=== PATIENT | female | born 1940 | race Caucasian/White ===

== ENCOUNTER 2020-08-02 15:12 | Inpatient (IN) | payer MEDICARE, SELFPAY ==
[2020-08-02 15:13] VITALS: BP 228/114; PULSE 95; RESP 18; TEMP 36.1; O2SAT 96; BMI 16.3
--- NOTE | 2020-08-02 15:56 | EDS_ITS ---
HPI History of Present Illness Chief Complaint: Fall Informant: patient and family Narrative Narrative: presents with left hip pain from fall. Patient states that she was outside of her apartment and went to [id number] female She denies any other injuries then to the hip. fell down onto the hip. She states she landed on a rug. She has not been up on her feet since the fall. She states that for about 5 years now she has not taken any medications. She has not seen a doctor in that same timeframe. She states that she used to be treated for hypertension and hypothyroidism. She notes that she has lost a lot of weight recently. [facility] Medical History (Updated 08/02/20 @ 18:[address] Zack Garcia, DO) Hypertension Home Medications NK 08/02/20 [History Last Taken Unknown] Allergy/AdvReac Type Severity Reaction Status Date / Time No Known Allergies Allergy Verified 08/02/20 15:19 no surgical history (Noncontributory) Social History (Updated 08/02/20 @ 17:24 by Idalia Felipe) household members: none housing: apartment current gender identity: female Smoking Status: Never smoker alcohol intake: never ROS ROS ED Constitutional Constitutional ED: Reports weight loss; Denies chills Eyes Eyes: Denies change in vision or diplopia ENT ENT ED: Denies ear pain, rhinorrhea or sore throat Cardiovascular Cardiovascular: Denies chest pain, orthopnea, palpitations or racing heartbeat Respiratory/Chest Respiratory/Chest: Denies cough, dyspnea or orthopnea Gastrointestinal Gastrointestinal: Denies abdominal pain, diarrhea, nausea or vomiting Genitourinary Genitourinary ED: Denies dysuria, hematuria or urinary frequency Musculoskeletal Musculoskeletal: Reports other Details: Left hip pain ; Denies arthralgias or myalgias Integumentary Denies abscess or rash Neurologic Neurologic: Denies headache(s) or weakness Psychiatric Psychiatric: Denies anxiety, depression, suicidal ideation or suicidal thoughts Endocrine Endocrinology: Denies polydipsia, polyphagia or polyuria Allergic/Immunologic Allergic/Immunologic ED: Denies mouth swelling, tongue swelling or urticaria EXAM Physical Exam Const Vital Signs: 08/02/20 15:13 08/02/20 17:26 Temperature 96.9 F L Temperature Source Temporal Pulse Rate 95 Respiratory Rate 18 Blood Pressure 228/114 H 217/124 H Blood Pressure Mean 152 155 Pulse Ox 96 Oxygen Delivery Method Room Air Positive well developed and cachectic General Appearance ED: well developed and cachectic Nutritional Appearance: cachectic HEENT Reports normocephalic, head/scalp atraumatic and moist mucous membranes Eyes PERRL and EOMs intact bilaterally Neck no lymphadenopathy, supple and no JVD Resp normal respiratory effort and clear to auscultation bilaterally Cardio regular rate, regular rhythm and no murmurs GI normal to inspection, nondistended, normoactive bowel sounds and non-tender Palpation: soft Back/Spine no CVA tenderness and normal ROM Extremity Extremity Narrative: Tender to palpation over the left hip. No rotation or shortening noted. Patient has changes consistent with rheumatoid ism General Extremety ED: Yes tenderness; Negative for edema General Extremity: Negative for edema Neuro oriented x3 and CN's II-XII intact bilaterally Sensorium / Orientation: alert Motor Exam: strength 5/5 throughout Psych mental status grossly normal Mood & Affect: Negative for depressed or tearful Skin no rashes or lesions noted and no wounds MDM MDM MDM Narrative Medical decision making narrative: My impression of the plain films of the left hip and pelvis are displaced fractures of the inferior and superior pubic rami. My impression of the single view portable chest x-ray is chronic changes no acute disease. I discussed with the patient and her POA at the bedside. Patient has lost little weight is very frail. She has not seen a doctor in over 5 years. She lives alone. Trying to get her to stand is nearly impossible at the moment. Basic blood work will be obtained. She will receive pain medication. I also gave hydralazine for her hypertension. TSH is significantly elevated. Free T4 1.19. Plan will be for admission. Lab Data Attestation: I reviewed the patient's lab results. Labs: Laboratory Results - last 24 hr 08/02/20 08/02/20 17:28 17:28 WBC 8.7 RBC 4.72 Hgb 14.0 Hct 42.4 MCV 89.8 MCH 29.7 MCHC 33.0 RDW Std Deviation 46.0 H RDW Coeff of Caleb 13.8 Plt Count 247 MPV 9.8 Immature Gran % (Auto) 0.600 Neut % (Auto) 86.8 H Lymph % (Auto) 6.6 L [place] % (Auto) 5.3 Eos % (Auto) 0.1 Baso % (Auto) 0.6 Absolute Neuts (auto) 7.5 Absolute Lymphs (auto) 0.57 L Nucleated RBC % 0 Sodium 133 L Potassium 3.7 Chloride 100 Carbon Dioxide 28.0 Anion Gap 5 BUN 15 Creatinine 0.69 Estim Creat Clear Calc 28.21 Est GFR (MDRD) Af Amer 104 Est GFR (MDRD) Non-Af 86 BUN/Creatinine Ratio 21.6 H Glucose 108 H Calcium 9.1 Total Bilirubin 1.50 H AST 34 ALT 25 Alkaline Phosphatase 75 Total Protein 7.6 Albumin 4.2 Globulin 3.4 Albumin/Globulin Ratio 1.2 TSH 11.60 H Free T4 1.19 Radiography Diagnostic Testing: Radiology Impression Hip/Pelvis X-Ray 08/02/20 16:30 IMPRESSION: Acute displaced fractures of the left superior and inferior pubic rami Electronically Signed: Rodrick Mohr MD at 17:04 EDT , Service support , EKG Initial EKG: Attestation: I personally reviewed and interpreted this EKG as follows: Comments: Normal sinus rhythm at a rate of 84. No features of ACS or ectopy noted. Discharge Plan Dx/Rx/DC Orders Clinical Impression: Closed fracture of superior pubic ramus, Abnormal weight loss, Fall, Closed fracture of inferior pubic ramus, Hypothyroidism, Hypertensive urgency Disposition Disposition: [facility]
--- NOTE | 2020-08-02 16:30 | RAD_ITS ---
STUDY: X-RAY - PELVIS AND LEFT HIP REASON FOR EXAM: Female, 79 years old. injury and pain TECHNIQUE: 5 views of the pelvis and hip. COMPARISON: None. FINDINGS: Acute oblique mildly displaced fractures are present through the lateral and medial aspects of the left superior pubic ramus and midline aspect of the left inferior pubic ramus. No additional visualized fractures. There is a non-specific bowel gas pattern. Normal visualized soft tissue structures. Normal bilateral iliac wings, sacroiliac joints and visualized sacrum. There is narrowing with sclerosis of the pubic symphysis. Normal bilateral ischial tuberosities. Normal visualized femoral head. Normal acetabulum. Moderate bilateral axial narrowing of the hip joints. No demonstrated femoral fractures. Benign bone island of the right intertrochanteric region. RAD/HIP, UNI W/ Pelvis 2-3 Views IMPRESSION: Acute displaced fractures of the left superior and inferior pubic rami Electronically Signed: Rodrick Mohr MD at 17:04 EDT , Service support ,
--- NOTE | 2020-08-02 17:04 | EKG12_ITS ---
Test Reason : FALL Blood Pressure : / mmHG Vent. Rate : 084 BPM Atrial Rate : 084 BPM P-R Int : 186 ms QRS Dur : 090 ms QT Int : 396 ms P-R-T Axes : 071 -37 -10 degrees QTc Int : 467 ms Normal sinus rhythm Left axis deviation Left ventricular hypertrophy Inferior CT, age undetermined Abnormal ECG Confirmed by RAVINDRA LINARES, JESSE ([id number]), food expeditor JOSE ROWE ([id number]) on 08/06/2020 10:58:27 AM Referred By: BETSY Confirmed By:JESSE WAITE MD
[2020-08-02] MEDS: Ondansetron 4 MG/2 ML Vial IV (17:21)
[2020-08-02] MEDS: Morphine 2 MG/ML Syringe IV (17:21)
[2020-08-02 17:26] VITALS: BP 217/124
--- NOTE | 2020-08-02 17:32 | RAD_ITS ---
STUDY: X-RAY CHEST REASON FOR EXAM: Female, 79 years old. weight loss TECHNIQUE: Single AP portable view of the chest. COMPARISON: None. FINDINGS: The lungs are clear and expanded. There is no demonstrated pleural abnormality. Normal size heart. Normal mediastinum and ayesha. Normal visualized pulmonary arteries. There is atherosclerotic calcification of the aortic arch with tortuosity. There are diffuse degenerative changes of the visualized thoracic spine. There is degenerative osteoarthritis of the bilateral shoulders. There is no demonstrated abnormality of the visualized soft tissue structures of the upper abdomen. RAD/Chest 1 View (Portable) IMPRESSION: No acute process Electronically Signed: Rodrick Mohr MD at 18:23 EDT , Service support ,
[2020-08-02 17:38] LABS: Absolute Lymphocyte Count 0.57 X10^3/uL (0.83-4.51); Absolute Neutrophil Count 7.5 X10^3/uL (2.0-7.7); Basophil# 0.05 X10^3/uL; Basophil% 0.6 % (0-1); Eosinophil# 0.01 X10^3/uL; Eosinophils% 0.1 % (0-5); Hematocrit 42.4 % (37-47); Lymphocyte # 0.57 X10^3/ul (0.83-4.51); Lymphocyte % 6.6 % (19-41); Mean Corpuscular Hgb 29.7 pg (27.0-32.0); Mean Corpuscular Volume 89.8 fL (81-99); Mean Platelet Vol. 9.8 fl (6.2-12.0); Monocyte# 0.46 X10^3/uL; Monocyte% 5.3 % (0-10); NRBC Flagged by Analyzer 0 % (0-5); Neutrophil # 7.53 X10^3/uL (2.7-7.7); Neutrophil % 86.8 % (47-70); POSITIVE DIFFERENTIAL YES; Platelet Count 247 K/mm3 (150-450); RBC Distribution Width CV 13.8 % (11.6-14.6); Red Blood Count 4.72 M/mm3 (4.2-5.4); White Blood Count 8.7 K/mm3 (4.4-11.0)
[2020-08-02 17:40] LABS: Differential Indicated SCAN CRITERIA MET
[2020-08-02 18:08] LABS: ALB/GLOB Ratio 1.2 RATIO (0.9-2.4); AST(SGOT) 34 U/L (15-37); Alanine Aminotransfer ALT/SGPT 25 U/L (13-56); Albumin, Serum 4.2 g/dL (3.2-5.0); Alkaline Phosphatase 75 U/L (45-117); Anion Gap 5 (5-15); BUN 15 mg/dL (7-18); BUN/Creat Ratio 21.6 RATIO (10-20); Calcium,Total 9.1 mg/dL (8.5-10.1); Chloride 100 mmol/L (98-107); Creatinine, Serum 0.69 mg/dL (0.55-1.02); EST Glomerular Filtration Rate 86 mL/min (>60); Est Glom Filt Rate - Afr Amer 104 mL/min (>60); Estimated Creatinine Clearance 28.21 ml/min; Globulin 3.4 g/dL (2.2-4.2); Glucose 108 mg/dL (74-106); Potassium 3.7 mmol/L (3.5-5.1); Protein, Total 7.6 g/dL (6.4-8.2); Sodium Level 133 mmol/L (136-145); T4 Free Direct 1.19 ng/dL (0.76-1.46)
[2020-08-02] MEDS: hydrALAZINE 20 MG/ML Vial 10 MG IV (18:20)
--- NOTE | 2020-08-02 18:38 | PCM.HP.STD ---
[facility] - [facility] General Date of Admission: 08/02/20 Chief Complaint: Fall. [facility] Narrative DANIELE WYATT, is a 79 F with past medical history as mentioned above presented to the emergency room because of fall. Patient was going out of her apartment to slate picker her mail, she was about to turn around and lost her balance and she fell on her hip. She states that she started having pain in the pelvic region on the left side, and she could not ambulate. Pain was moderate, sharp pain and was aggravated by movement. She denied any prodromal symptoms before she fell down. Patient's son mentioned that his mother did not see a doctor for more than 5 years. She had a history of hypertension and hypothyroidism but she quit taking medications for both since his father more than 5 years ago. In the emergency department, her blood pressure was elevated, highest was 228/114, other vital signs were stable. Routine blood work was unremarkable. LFT was unremarkable. TSH was very elevated at 11.60. EKG revealed normal sinus rhythm without evidence of acute ischemic changes. Chest x-ray showed no acute findings. X-ray of the pelvis and left hip showed acute displaced fractures of the left superior and inferior pubic rami. She has been lightheaded for acute traumatic left superior and inferior pubic rami, hypertensive urgency, noncompliance and elevated TSH. [facility] Medical History (Updated 08/02/20 @ 18:[address] Jan Kerr MD) Hypertension Home Medications NK 08/02/20 [History Last Taken Unknown] Allergy/AdvReac Type Severity Reaction Status Date / Time No Known Allergies Allergy Verified 08/02/20 15:19 no significant family history Surgical History (Updated 08/02/20 @ 18:[address] Jan Kerr MD) Total knee replacement status Social History (Updated 08/02/20 @ 17:24 by Idalia Felipe) household members: none housing: apartment current gender identity: female Smoking Status: Never smoker alcohol intake: never ROS Constitutional Constitutional: Reports change in weight; Denies anorexia, chills, fever(s), night sweats or weakness Eyes Eyes: Denies blurry vision, change in vision, discharge from eye(s) or double vision ENT HEENT: Denies abnormal hearing, dysphagia, ear pain, epistaxis, nasal congestion or nasal discharge Cardiovascular Cardiovascular: Denies chest pain, dyspnea on exertion, edema, orthopnea or paroxysmal nocturnal dyspnea Respiratory/Chest Respiratory/Chest: Denies cough, hemoptysis, productive cough, shortness of breath at rest or shortness of breath with exertion Gastrointestinal Gastrointestinal: Denies abdominal pain, constipation, diarrhea, melena, nausea or vomiting Genitourinary Genitourinary: Denies burning urination, dysuria, hematuria or urinary frequency Musculoskeletal Musculoskeletal: Reports other Details: Left side pelvic pain. ; Denies arthralgias, back pain or joint pain Neurologic Neurologic: Denies abnormal gait, confusion, focal weakness, numbness, syncope or tingling Psychiatric Psychiatric: Denies anxiety, depression, homicidal ideation or suicidal ideation Endocrine Endocrinology: Reports other Details: Weight loss. ; Denies change in body appearance or polydipsia Hematologic/Lymphatic Hematologic/Lymphatic: Denies anemia, easy bleeding or easy bruising Allergic/Immunologic Allergic/Immunologic: Denies rhinitis, hives or eczemia Vital Signs Vital Signs Vital Signs: 08/02/20 15:13 08/02/20 17:26 Temperature 96.9 F L Temperature Source Temporal Pulse Rate 95 Respiratory Rate 18 Blood Pressure 228/114 H 217/124 H Blood Pressure Mean 152 155 Pulse Ox 96 Oxygen Delivery Method Room Air Physical Exam Const alert, oriented x3 and no apparent distress General Appearance: cooperative HEENT normocephalic, head/scalp atraumatic and moist oral mucous membranes Mouth: moist mucous membranes abnormal Eyes PERRL, EOMs intact bilaterally and conjunctivae normal Neck no lymphadenopathy, supple, no JVD and no carotid bruits Resp normal respiratory effort and clear to auscultation bilaterally Auscultation: Negative for crackles, rales, rhonchi or wheezes Cardio regular rate, regular rhythm, S1 normal heart sound, S2 normal heart sound, no murmurs and no JVD Peripheral Pulses: pulses 2+ throughout GI normal to inspection, nondistended, normoactive bowel sounds, soft to palpation, non-tender and non-distended; Negative for hepatosplenomegaly Extremity normal to inspection, full ROM and no clubbing, cyanosis or edema Skin no rashes or lesions noted, no wounds and no petechiae Neuro oriented x3 and CN's II-XII intact bilaterally Sensorium / Orientation: alert Speech: speech normal Motor Exam: strength 5/5 throughout Psych mental status grossly normal and affect normal Lab / Micro Data Result Diagrams: 08/02/20 17:28 08/02/20 17:28 Labs: Laboratory Results - last 24 hr 08/02/20 08/02/20 17:28 17:28 WBC 8.7 RBC 4.72 Hgb 14.0 Hct 42.4 MCV 89.8 MCH 29.7 MCHC 33.0 RDW Std Deviation 46.0 H RDW Coeff of Caleb 13.8 Plt Count 247 MPV 9.8 Immature Gran % (Auto) 0.600 Neut % (Auto) 86.8 H Lymph % (Auto) 6.6 L [place] % (Auto) 5.3 Eos % (Auto) 0.1 Baso % (Auto) 0.6 Absolute Neuts (auto) 7.5 Absolute Lymphs (auto) 0.57 L Nucleated RBC % 0 Sodium 133 L Potassium 3.7 Chloride 100 Carbon Dioxide 28.0 Anion Gap 5 BUN 15 Creatinine 0.69 Estim Creat Clear Calc 28.21 Est GFR (MDRD) Af Amer 104 Est GFR (MDRD) Non-Af 86 BUN/Creatinine Ratio 21.6 H Glucose 108 H Calcium 9.1 Total Bilirubin 1.50 H AST 34 ALT 25 Alkaline Phosphatase 75 Total Protein 7.6 Albumin 4.2 Globulin 3.4 Albumin/Globulin Ratio 1.2 TSH 11.60 H Free T4 1.19 Radiology Impression Hip/Pelvis X-Ray 08/02/20 16:30 IMPRESSION: Acute displaced fractures of the left superior and inferior pubic rami Electronically Signed: Rodrick Mohr MD at 17:04 EDT , Service support , Chest X-Ray 08/02/20 17:32 IMPRESSION: No acute process Electronically Signed: Rodrick Mohr MD at 18:23 EDT , Service support , Assessment & Plan Assessment/Plan (1) High thyroid stimulating hormone (TSH) level: Status: Acute Code(s): R79.89 - Other specified abnormal findings of blood chemistry (2) Hypertensive urgency: Status: Acute Code(s): I16.0 - Hypertensive urgency (3) Pubic ramus fracture: Status: Acute Code(s): S32.599A - Other specified fracture of unspecified pubis, initial encounter for closed fracture (4) Fall: Status: Acute Code(s): W19.XXXA - Unspecified fall, initial encounter (5) Hypertension: Status: Chronic Code(s): I10 - Essential (primary) hypertension (6) Hypothyroidism: Status: Chronic Code(s): E03.9 - Hypothyroidism, unspecified Plan: This is an 79 years old female patient presented to the emergency room because of fall and pelvic pain, found to have acute displaced left superior and inferior pubic rami fracture and also found to have mild elevated blood pressure consistent with hypertensive urgency and elevated LFT. #1 fall/acute traumatic displaced fractures of the left superior and inferior pubic rami: X-ray of the pelvis and left hip reviewed. Plan: Admit to PCU, cardiac monitoring, pain control with OxyIR as needed for pain, Tylenol as needed, gentle IV fluid for hydration, Zofran as needed, PT OT evaluation and treatment, patient will probably need placement to [facility] facility.. #2 hypertensive urgency: Patient was highly elevated in the ED, no evidence of endorgan damage. EKG reviewed, no acute findings. She does have a history of hypertension but she did not take her medication for the last 5 years or more. She has been noncompliant. Plan: Start Norvasc 10 mg p.o. daily, lisinopril/HCTZ daily, IV hydralazine as needed. #3 elevated TSH/hypothyroidism: She has history of hypothyroidism, has been not compliant with levothyroxine for last 5 years. TSH is already elevated. Plan: Check total T4, free T3, start levothyroxine 25 mcg daily. #4 DVT prophylaxis: Subcu Lovenox. This note was generated with [employer] dictation software. It may contain incorrect words, spelling, and punctuation that were not noted in checking the note before signing. Visit Charges Inpatient E&M: 38338 Init Hosp L3
[2020-08-02 18:45] VITALS: BP 198/118; PULSE 85; RESP 18; TEMP 36.7; O2SAT 98
[2020-08-02 18:55] VITALS: BP 148/86; PULSE 86; RESP 18; TEMP 36.6; O2SAT 93
[2020-08-02 18:59] VITALS: BMI 14.6
[2020-08-02 19:03] VITALS: PULSE 88
[2020-08-02 19:35] LABS: Acanthocytes 1+; Differential Comment SCANNED; Platelet Estimate ADEQUATE (ADEQ)
[2020-08-02] MEDS: 0.9% Normal Saline 1,000 ML 75 ML IV (21:16)
[2020-08-02 21:24] LABS: Free T3 2.4 pg/mL (2.18-3.98); T4 Total, Thyroxin 11.8 ug/dL (4.8-13.9)
[2020-08-02] MEDS: oxyCODONE 5 MG Tablet PO (21:25)
[2020-08-02 21:41] LABS: Bacteria 0 SEEN /hpf (None Seen); Mucous, Urine 0 SEEN /hpf (<or=2+); White Blood Cells 0 SEEN /hpf (0-5)
[2020-08-02 21:43] LABS: Color, Urine Yellow (Yellow); Glucose, Dipstick Normal (Normal); Ketone-Dipstick 15 mg/dl (Negative); Leukocyte Esterase-Dipstick Negative /ul (Negative); Nitrite-Dipstick Negative (Negative); Occult Blood-Urine 10 /ul (Negative); Protein-Dipstick 30 mg/dl (Negative); Urine Bilirubin Dipstick Negative (Negative); Urine Clarity Sl. Cloudy (Clear); Urine Urobilinogen Normal (Normal)
[2020-08-02 21:52] LABS: Red Blood Cells-Urine 0-5 SEEN /hpf (0-5); Squamous Epithelial Cells - UA 0-5 SEEN /hpf (5-10)
[2020-08-02 22:32] VITALS: RESP 18; O2SAT 95
[2020-08-03] VITALS (11 sets, daily range): BP systolic 109–167; BP diastolic 61–91; PULSE 60–93; RESP 12–18; TEMP 36.6–36.9; O2SAT 93–98
[2020-08-03] MEDS: oxyCODONE 5 MG Tablet PO ×3 (03:39→21:07)
[2020-08-03] MEDS: Levothyroxine 25 MCG TABLET PO (05:45)
[2020-08-03] MEDS: Lisinopril 10 MG Tablet PO (09:30)
[2020-08-03] MEDS: Enoxaparin 30 MG/0.3 ML Syringe SC (09:30)
[2020-08-03] MEDS: amLODIPine 10 MG Tablet PO (09:30)
--- NOTE | 2020-08-03 16:32 | CASEMGMT ---
DAVID AGUIAR NOTE: DAVID AGUIAR informed by therapy earlier today that pt had refused therapy d/t being too tired. This DAVID AGUIAR then informed that when pt's son was in to see her today that pt was then agreeable to therapy, but they had gone home for the day. DAVID AGUIAR to room to talk with pt. Son is no longer in pt's room, but pt states he should be coming back soon. Pt states she has been having difficulty walking since her pelvic fracture and she confirms she lives alone. Discussed discharge plan w/pt. She stated initially, There is no way I am going to a group home. Pt then stated, when she was made aware of [facility] having a Transitional Care Unit, which is a SNF, but located w/in [facility], she stated she would like to go there. Corrie MCWILLIAMS, made aware. Marlon MARIA RN, CM
--- NOTE | 2020-08-03 18:00 | CASEMGMT ---
SOCIAL WORK Met with patient earlier this morning to discuss discharge planning. Patient reported was too tired to work with therapy. Patient reports lives home alone in an apartment. Patient states has not seen a doctor since 5-6 years ago. Patient reports is normally independent at home and does have a walker if needed. Patient states HPOA is step-son, Corby Lozada. Patient was unsure of discharge plan at this time. Later, met with patient. Patient states if needed, would be open to referral to TCU. Informed SW will follow up on Wednesday as patient will require precert. Plan: TCU vs Home, SW to follow up Wednesday Denisse King, EMBOSSING UNIT OPERATOR, SOUND TECHNICIAN
--- NOTE | 2020-08-03 19:26 | PN.HOSP_ITS ---
Subjective Subjective: Doing well today, denies any headaches shortness of breath. She denies any major pelvic pain that she felt tired since she did not sleep very well with the previous night so she did not want to do any physical therapy today. Objective Data Objective Data Vital Signs: Vital Signs Temp Pulse Resp BP Pulse Ox 98.4 F 85 12 109/61 94 08/03/20 15:08 08/03/20 15:33 08/03/20 15:08 08/03/20 15:08 08/03/20 15:08 Oxygen Delivery Method Room Air Weight: 79 lb 14.4 oz Body Mass Index (BMI) 14.6 Intake & Output: Intake and Output for Last 24 Hours 08/02/20 08/03/20 08/04/20 03:59 03:59 03:59 Intake Total 300 / 300 2380 / 2380 Output Total 240 / 240 750 / 750 Balance 60 / 60 1630 / 1630 Lab / Micro Data Result Diagrams: 08/02/20 17:28 08/02/20 17:28 Labs: Laboratory Results - last 24 hr 08/02/20 08/02/20 08/02/20 17:28 17:28 21:30 Differential Comment SCANNED Platelet Estimate ADEQUATE Acanthocytes (Spur) 1+ Thyroxine (T4) 11.8 Free T3 pg/dL 2.4 Urine Color Yellow Urine Clarity Sl. Cloudy Urine pH 8.0 Ur Specific [place] 1.010 Urine Protein 30 H Urine Glucose (UA) Normal Urine Ketones 15 H Urine Occult Blood 10 H Urine Nitrite Negative Urine Bilirubin Negative Urine Urobilinogen Normal Ur Leukocyte Esterase Negative Urine RBC 0-5 SEEN Urine WBC 0 SEEN Ur Squamous Epith Cells 0-5 SEEN Urine Bacteria 0 SEEN Urine Mucus 0 SEEN Physical Exam Const alert, oriented x3 and no apparent distress General Appearance: cooperative HEENT normocephalic and moist oral mucous membranes Eyes PERRL, EOMs intact bilaterally and conjunctivae normal Neck no lymphadenopathy, supple and no JVD Resp normal respiratory effort and clear to auscultation bilaterally Auscultation: Negative for crackles, rales, rhonchi or wheezes Cardio regular rate, regular rhythm, S1 normal heart sound, S2 normal heart sound and no murmurs GI soft to palpation, non-tender and non-distended; Negative for hepatosplenomegaly Extremity no clubbing, cyanosis or edema Skin no rashes or lesions noted Neuro no focal motor deficits and no sensory deficits noted Psych mental status grossly normal and affect normal Assessment & Plan Assessment/Plan (1) High thyroid stimulating hormone (TSH) level: Status: Acute Code(s): R79.89 - Other specified abnormal findings of blood chemistry (2) Hypertensive urgency: Status: Acute Code(s): I16.0 - Hypertensive urgency (3) Pubic ramus fracture: Status: Acute Code(s): S32.599A - Other specified fracture of unspecified pubis, initial encounter for closed fracture Qualifiers: Encounter type: initial encounter Fracture type: closed Laterality: le ft Qualified Code(s): S32.592A - Other specified fracture of left pubis, i nitial encounter for closed fracture (4) Fall: Status: Acute Code(s): W19.XXXA - Unspecified fall, initial encounter Qualifiers: Encounter type: initial encounter Qualified Code(s): W19.XXXA - Unspecified fall, initial encounter Plan: Presented to secondary to mechanical fall for left pubic rami fractures superior and inferior Pain is resolved, will continue with PT/OT and case management for placement She did have hypertensive urgency with SBP in the 200s, will continue with blood pressure medications and monitoring. No signs of endorgan damage TSH is also elevated, she was supposed to be on Synthroid but was not taking it therefore we will reinitiate therapy Visit Charges Inpatient E&M: 64412 Subs Hosp L2
[2020-08-03] MEDS: Acetaminophen 325 MG Tablet 650 MG PO (21:08)
[2020-08-04] VITALS (9 sets, daily range): BP systolic 118–171; BP diastolic 66–91; PULSE 63–95; RESP 12–18; TEMP 36.5–37.2; O2SAT 92–95
[2020-08-04] MEDS: Levothyroxine 25 MCG TABLET PO (05:23)
[2020-08-04] MEDS: 0.9% Saline Lock 10 ML Syringe IV ×2 (05:24→06:48)
[2020-08-04 06:37] LABS: Anion Gap 5 (5-15); BUN 23 mg/dL (7-18); BUN/Creat Ratio 33.8 RATIO (10-20); Calcium,Total 8.4 mg/dL (8.5-10.1); Chloride 101 mmol/L (98-107); Creatinine, Serum 0.68 mg/dL (0.55-1.02); EST Glomerular Filtration Rate 88 mL/min (>60); Est Glom Filt Rate - Afr Amer 107 mL/min (>60); Estimated Creatinine Clearance 25.24 ml/min; Glucose 87 mg/dL (74-106); Sodium Level 132 mmol/L (136-145)
[2020-08-04] MEDS: Lactated Ringers 1,000 ML 75 ML IV (06:48)
[2020-08-04] MEDS: Acetaminophen 325 MG Tablet 650 MG PO (08:44)
[2020-08-04] MEDS: Enoxaparin 30 MG/0.3 ML Syringe SC (11:09)
[2020-08-04] MEDS: Lisinopril 10 MG Tablet PO (11:09)
[2020-08-04] MEDS: amLODIPine 10 MG Tablet PO (11:10)
--- NOTE | 2020-08-04 12:13 | PCM.PN.HOSP ---
Subjective Subjective: Did not get much sleep last night and feels tired this morning. She has agreed to work with therapy today though Objective Data Objective Data Vital Signs: Vital Signs Temp Pulse Resp BP Pulse Ox 97.7 F L 68 12 171/91 H 95 08/04/20 08:51 08/04/20 08:51 08/04/20 08:51 08/04/20 08:51 08/04/20 08:51 Oxygen Delivery Method Room Air Weight: 79 lb 14.4 oz Body Mass Index (BMI) 14.6 Intake & Output: Intake and Output for Last 24 Hours 08/03/20 08/04/20 08/05/20 03:59 03:59 03:59 Intake Total 300 / 300 2560 / 2560 60 / 60 Output Total 240 / 240 875 / 875 100 / 100 Balance 60 / 60 1685 / 1685 -40 / -40 Lab / Micro Data Result Diagrams: 08/02/20 17:28 08/04/20 05:45 Labs: Laboratory Results - last 24 hr 08/04/20 05:45 Sodium 132 L Potassium 4.0 Chloride 101 Carbon Dioxide 26.0 Anion Gap 5 BUN 23 H Creatinine 0.68 Estim Creat Clear Calc 25.24 Est GFR (MDRD) Af Amer 107 Est GFR (MDRD) Non-Af 88 BUN/Creatinine Ratio 33.8 H Glucose 87 Calcium 8.4 L Physical Exam Const alert, oriented x3 and no apparent distress General Appearance: cooperative HEENT normocephalic and moist oral mucous membranes Eyes PERRL, EOMs intact bilaterally and conjunctivae normal Neck no lymphadenopathy, supple and no JVD Resp normal respiratory effort and clear to auscultation bilaterally Auscultation: Negative for crackles, rales, rhonchi or wheezes Cardio regular rate, regular rhythm, S1 normal heart sound, S2 normal heart sound and no murmurs GI soft to palpation, non-tender and non-distended; Negative for hepatosplenomegaly Extremity no clubbing, cyanosis or edema Skin no rashes or lesions noted Neuro no focal motor deficits and no sensory deficits noted Psych mental status grossly normal and affect normal Assessment & Plan Assessment/Plan (1) High thyroid stimulating hormone (TSH) level: Status: Acute Code(s): R79.89 - Other specified abnormal findings of blood chemistry (2) Hypertensive urgency: Status: Acute Code(s): I16.0 - Hypertensive urgency (3) Pubic ramus fracture: Status: Acute Code(s): S32.599A - Other specified fracture of unspecified pubis, initial encounter for closed fracture Qualifiers: Encounter type: initial encounter Fracture type: closed Laterality: left Qualified Code(s): S32.592A - Other specified fracture of left pubis, initial encounter for closed fracture (4) Fall: Status: Acute Code(s): W19.XXXA - Unspecified fall, initial encounter Qualifiers: Encounter type: initial encounter Qualified Code(s): W19.XXXA - Unspecified fall, initial encounter Plan: Presented to secondary to mechanical fall for left pubic rami fractures superior and inferior To facilitate therapy, will continue with oxycodone and Tylenol as needed Pain is improved at rest but still about a 6 out of 10 with therapy, will continue with PT/OT and case management for placement She did have hypertensive urgency with SBP in the 200s, will continue with blood pressure medications and monitoring. No signs of endorgan damage TSH is also elevated, she was supposed to be on Synthroid but was not taking it therefore we will reinitiate therapy Visit Charges Inpatient E&M: 80330 Subs Hosp L2
[2020-08-04] MEDS: oxyCODONE 5 MG Tablet PO (21:15)
[2020-08-05] VITALS (10 sets, daily range): BP systolic 142–208; BP diastolic 79–107; PULSE 69–97; RESP 16–18; TEMP 36.6–36.9; O2SAT 92–96
[2020-08-05] MEDS: Acetaminophen 325 MG Tablet 650 MG PO ×2 (04:03→15:37)
[2020-08-05] MEDS: Levothyroxine 25 MCG TABLET PO (05:59)
--- NOTE | 2020-08-05 09:11 | CASEMGMT ---
Addendum entered by oRsa Carreno 08/05/20 14:02: SW called [facility] [employer], spoke with a apprenticeship training representative. SW informed that the fax number we have used previously is incorrect, and the information should be faxed to [phone]. SW refaxed the information to this fax number. SW did also check, the prior fax to did also go through. SW will continue to follow. LAMAR Rice Original Note: SW received message that if pt needs rehab, she would like TCU. SW called [facility] in TCU and they can accept the pt. SW met w/pt in room in regard to discharge plan. Pt confirms wants a referral sent to TCU, declined a list of longterm facilities in the area with the quality and resource use data included. SW explained will start referral process with TCU, will let her know. SW called [facility] in [facility] again, message left confirming this is the plan and SW will start the process w/[facility], to get the authorization to start precert. SW called [facility], message left and initial referral faxed. Once SW hears back from [facility] will let [facility] know so she can start the precert. SW let pt know the referral process was started, inquired if she would like SW to call Corby Lozada listed on the face sheet. Pt confirmed she would, she states that Corby is her step son and her advocate. SW called mickey Tavarez, let him know that pt is in agreement w/going to TCU, and that if we get precert from insurance she will go today. SW also explained to Corby the visitation policy in TCU, Corby states understanding. Plan: TCU, pending precert. LAMAR Rice
--- NOTE | 2020-08-05 09:15 | NURSING ---
Received Report on patient. Assumed care.
[2020-08-05 09:23] LABS: Absolute Lymphocyte Count 0.56 X10^3/uL (0.83-4.51); Absolute Neutrophil Count 4.3 X10^3/uL (2.0-7.7); Basophil# 0.02 X10^3/uL; Basophil% 0.4 % (0-1); Eosinophil# 0.08 X10^3/uL; Eosinophils% 1.5 % (0-5); Hematocrit 37.9 % (37-47); Hemoglobin 12.8 g/dL (12.0-15.0); Lymphocyte # 0.56 X10^3/ul (0.83-4.51); Lymphocyte % 10.3 % (19-41); Mean Corp Hgb Conc 33.8 g/dL (32-36); Mean Corpuscular Hgb 30.5 pg (27.0-32.0); Mean Corpuscular Volume 90.5 fL (81-99); Mean Platelet Vol. 10.2 fl (6.2-12.0); Monocyte# 0.53 X10^3/uL; Monocyte% 9.7 % (0-10); NRBC Flagged by Analyzer 0 % (0-5); Neutrophil # 4.25 X10^3/uL (2.7-7.7); Neutrophil % 77.9 % (47-70); POSITIVE DIFFERENTIAL YES; Platelet Count 193 K/mm3 (150-450); RBC Distribution Width CV 14.1 % (11.6-14.6); Red Blood Count 4.19 M/mm3 (4.2-5.4); White Blood Count 5.5 K/mm3 (4.4-11.0)
[2020-08-05 09:24] LABS: Differential Indicated SCAN CRITERIA MET
[2020-08-05 09:40] LABS: AST(SGOT) 19 U/L (15-37); Alanine Aminotransfer ALT/SGPT 14 U/L (13-56); Albumin, Serum 3.1 g/dL (3.2-5.0); Alkaline Phosphatase 56 U/L (45-117); Anion Gap 10 (5-15); BUN 18 mg/dL (7-18); Calcium,Total 8.5 mg/dL (8.5-10.1); Chloride 98 mmol/L (98-107); Creatinine, Serum 0.52 mg/dL (0.55-1.02); EST Glomerular Filtration Rate 121 mL/min (>60); Est Glom Filt Rate - Afr Amer 147 mL/min (>60); Estimated Creatinine Clearance 25.24 ml/min; Globulin 3.1 g/dL (2.2-4.2); Glucose 92 mg/dL (74-106); Magnesium 2.4 mg/dL (1.6-2.6); Protein, Total 6.2 g/dL (6.4-8.2); Sodium Level 131 mmol/L (136-145)
--- NOTE | 2020-08-05 11:08 | TREXTCAR_ITS ---
Diet 08/03/20 12:01 Diet: Regular - General Food consistency:: Regular Liquid Consistency:: Regular/Thin Type of Dietary Supplement:: Ensure Pudding Is pt able to select menu?: Yes Diet Comments: ensure pudding w/ lunch and dinner Routine Orders/Code Status Enema Type: Fleetz Enema Frequency: Daily PRN O2 Frequency: PRN Keep PO Greater than or Equal to (%): 90 Routine Lab Work: - (May obtain follow-up CBC, BMP in 1 week. Also, repeat TSH, FT4 in 4-6 weeks given restart synthroid regimen.) Code Status: DNRCC-A (DNR-CCA, no intubation.) Wound(s) kalli cleft: Wound Type: skin has split Suggestions for Active Care Change Position every (hours): 2 Hours to sit in a chair: 6 Times a day to sit in chair: 3 Therapies Weight Bearing: Full weight bearing Physical Therapy: Eval and Treat Occupational Therapy: Eval and Treat Problem/Diagnosis (1) Fall: Status: Acute (2) Hypertensive urgency: Status: Acute (3) Pubic ramus fracture: Status: Acute (4) High thyroid stimulating hormone (TSH) level: Status: Acute Allergies/Procedures Done in Hospital Allergies No Known Allergies Allergy (Verified 08/02/20 15:19) Type of Care/Length of Stay Estimated LOS: Convalescent Care Less Than 30 days Type of Care Needed: Skilled Rehab Potential: Good Prognosis: Good Additional Orders/Day of Discharge H&P will serve as current which was dated: 08/02/20 Day of Discharge: 08/05/20 Dietary and Speech Recommendations Dietitian Recommendations/Changes: Will change diet to Regular w/ ONS (ensure pudding) at meals and medpass Follow Up Care Please Follow Up With: Primary Care Physician When: Please follow-up with PCP within 1-2 days of SNF discharge plannned date. Discharge Plan Admission Admit Date/Time: 08/02/20 18:35 Attending Provider: Suyr Suh Primary Care Provider: Care Physician,No Primary Instructions Patient Instructions: Controlling High Blood Pressure, High Blood Pressure (Hypertension), ED Pelvic Fracture, ED Fall Dizziness Weakn Balance Additional Instructions / Restrictions: Please assure repeat TSH, Free T4 within 4-6 weeks given recent restart synthroid regimen with history of hypothyroidism. Also, it is very important to continue your hypertensive regimen. DO not stop these medications unless instructed by a physician. Discharge Orders/Prescriptions Prescriptions: New acetaminophen [Tylenol] 325 mg Tablet 650 mg PO Q6H PRN PRN (Reason: Pain Score 1-10/Temp > 100.7 F) Qty: 0 RF: 0 sennosides-docusate sodium [Stool Softener-Stimulant Laxat] 8.6-50 mg Tablet 2 tab PO BID PRN PRN (Reason: Constipation) Qty: 0 RF: 0 levothyroxine 25 mcg Tablet 25 mcg PO DAILY@0600 Qty: 0 RF: 0 amlodipine 10 mg Tablet 10 mg PO DAILY Qty: 0 RF: 0 lisinopril 10 mg Tablet 10 mg PO DAILY Qty: 0 RF: 0 oxycodone 5 mg Tablet 5 mg PO Q4H PRN PRN (Reason: Pain Score 4-10) Qty: 0 RF: 0 enoxaparin 30 mg/0.3 mL Syringe 30 mg subcut DAILY Qty: 0 RF: 0 Ensure Enlive 0.08 gram-1.5 kcal/mL Liquid 120 ml PO 4X/DAY Qty: 0 RF: 0 Referrals: Care Physician,No Primary [Primary Care Provider] - Disposition Disposition (needs filled in before D/C Order can be placed): [facility]
--- NOTE | 2020-08-05 11:41 | PN.HOSP_ITS ---
Subjective Subjective: Patient with no acute events overnight per self and per nursing report. She does note still some discomfort primarily in the pubic and hip regions, worse with movement and ambulatory attempts with therapy. Patient remains amenable to residential facility placement and understands that she is awaiting transition to the TCU with insurance allowance. Patient denies fevers, chills, nausea, emesis, abdominal pain, chest pain or dyspnea. Objective Data Objective Data Vital Signs: Vital Signs Temp Pulse Resp BP Pulse Ox 98.4 F 72 16 142/84 H 94 08/05/20 04:00 08/05/20 06:59 08/05/20 04:00 08/05/20 04:00 08/05/20 07:30 Oxygen Delivery Method Room Air Weight: 79 lb 14.4 oz Body Mass Index (BMI) 14.6 Intake & Output: Intake and Output for Last 24 Hours 08/03/20 08/04/20 08/05/20 23:59 23:59 23:59 Intake Total 2380 / 2560 2271.25 / 2271.25 200 / 200 Output Total 750 / 875 1175 / 1175 250 / 250 Balance 1630 / 1685 1096.25 / 1096.25 -50 / -50 Lab / Micro Data Result Diagrams: 08/05/20 09:16 08/05/20 09:16 Labs: Laboratory Results - last 24 hr 08/05/20 08/05/20 09:16 09:16 WBC 5.5 RBC 4.19 L Hgb 12.8 Hct 37.9 MCV 90.5 MCH 30.5 MCHC 33.8 RDW Std Deviation 47.0 H RDW Coeff of Caleb 14.1 Plt Count 193 MPV 10.2 Immature Gran % (Auto) 0.200 Neut % (Auto) 77.9 H Lymph % (Auto) 10.3 L [place] % (Auto) 9.7 Eos % (Auto) 1.5 Baso % (Auto) 0.4 Absolute Neuts (auto) 4.3 Absolute Lymphs (auto) 0.56 L Nucleated RBC % 0 Differential Comment COMMENT Sodium 131 L Potassium 4.0 Chloride 98 Carbon Dioxide 23.0 Anion Gap 10 BUN 18 Creatinine 0.52 L Estim Creat Clear Calc 25.24 Est GFR (MDRD) Af Amer 147 Est GFR (MDRD) Non-Af 121 BUN/Creatinine Ratio 35.0 H Glucose 92 Calcium 8.5 Magnesium 2.4 Total Bilirubin 1.10 H AST 19 ALT 14 Alkaline Phosphatase 56 Total Protein 6.2 L Albumin 3.1 L Globulin 3.1 Albumin/Globulin Ratio 1.0 Physical Exam Narrative Physical Examination: General: awake, alert, oriented x 3 and cooperative, seated upright in the PCU bed, in no apparent distress, notes pelvic discomfort is improving. Skin: normal color, turgor, no icterus, cyanosis. HEENT: AT/NC, EOMI, PERRLA, MMM. Lungs: Diminished breath sounds, greater bases, appropriate effort, no rales, ronchi or wheezing. Heart: Regular rate and rhythm; no gallop, rub audible. Abdomen: soft, thin cachectic habitus, NTTP, ND, normal BS. Extremities: no cyanosis, clubbing, or edema. Neurological: patient awake, alert, oriented as noted; cognitive function suspect baseline intact; pupils equally reactive to light and accomodation; cranial nerves II-XII grossly normal, moving all 4 extremities, no focal deficits, strength severely global decrease secondary to acute presentation with pubic rami fractures. Psychiatric: affect appears normal, no acute evidence of depressive or anxiety feelings. Assessment & Plan Assessment/Plan (1) Fall: Status: Acute Code(s): W19.XXXA - Unspecified fall, initial encounter Qualifiers: Encounter type: initial encounter Qualified Code(s): W19.XXXA - Unspecified fall, initial encounter (2) Pubic ramus fracture: Status: Acute Code(s): S32.599A - Other specified fracture of unspecified pubis, initial encounter for closed fracture Qualifiers: Encounter type: initial encounter Fracture type: closed Laterality: left Qualified Code(s): S32.592A - Other specified fracture of left pubis, initial encounter for closed fracture (3) Hypertensive urgency: Status: Acute Code(s): I16.0 - Hypertensive urgency (4) High thyroid stimulating hormone (TSH) level: Status: Acute Code(s): R79.89 - Other specified abnormal findings of blood chemistry (5) Hypertension: Status: Chronic Code(s): I10 - Essential (primary) hypertension Qualifiers: Hypertension type: essential hypertension Qualified Code(s): I10 - Essential (primary) hypertension Plan: The patient is an 79 y/o F w/ PMHx: Hypothyroidism (taken herself off her medication), HTN who presents to the [facility] ED on 08/02/20 with 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 1. Mechanical fall with intractable left-sided hip and pelvic region pain with acute inferior and superior pubic rami fractures: Patient admitted to PCU given significant BP elevations upon presentation, plain films with no evidence of acute hip fracture however patient did have left-sided superior and inferior pu bic rami fractures, maintained on fall precautions, as needed oral pain regimen, PT/OT/case management consultations for discharge planning with plan residential facility/TCU placement once insurance amenable. 2. Hypertensive urgency: Patient with significantly elevated BP upon presentation, EKG with sinus rhythm with no acute evidence of ischemia, chest x- ray with no acute cardiopulmonary findings, BP significantly improved with addition of oral regimen, will continue upon transition to PCU including Norvasc, lisinopril as well as as needed hydralazine. 3. Hypothyroidism, not on regimen: Patient with significant TSH elevation, not taking any Synthroid regimen, will initiate low-dose with recommendation for repeat free T4 and TSH testing in 4 to 6 weeks with further adjustment of m edications as needed. 4. DVT prophylaxis: SCDs, Lovenox. 5. CODE status: Patient SOFIA is her stepson Corby. Discussed CODE status at length including difference between FULL code, DNR-CCA and DNR-CC status. Following discussions about the differences in these status, requested DNR-CCA, no intubation status. Advanced Care Planning Face to Face Time: 16 minutes. Visit Charges Inpatient E&M: 34047 Subs Hosp L2 Procedures Hospitalists Procedures: 40760 Advncd Care Plan 30 Min
[2020-08-05] MEDS: Lisinopril 10 MG Tablet PO (12:35)
[2020-08-05] MEDS: Enoxaparin 30 MG/0.3 ML Syringe SC (12:35)
[2020-08-05] MEDS: amLODIPine 10 MG Tablet PO (12:35)
--- NOTE | 2020-08-05 15:07 | CASEMGMT ---
Addendum entered by Rosa Carreno 08/05/20 16:06: SW let pt know we did not get precert today for her to go to TCU but it is anticipated we will get the precert tomorrow. Pt states understanding. SW called pt's mickey Tavarez and let him know as well. LAMAR Rice Original Note: Windy from [facility] called to say that she agrees with longterm level of care and that TCU can start precert. [facility] called [facility] to let her know, she will start precert. LAMAR Rice
--- NOTE | 2020-08-05 15:33 | CHAPLAIN ---
Type of Pastoral Visit _x__ Initial Visit ___ Follow-up Visit ___ On-call Visit ___ General Patient Visit ___ Spiritual Assessment ___ Family Conference ___ Bereavement ___ Rapid Response ___ Code Blue ___ Other (describe below) Pastoral Care Referral From _x__ Patient ___ Family ___ Nurse ___ Physician ___ Travel Ot ___ Clinical Veterinarian ___ Other (describe below) Sacrament/Intervention _x__ Active listening ___ Anointing ___ Uatsdin ___ Bereavement ___ Communion ___ Louise exploration ___ ___ Life review _x__ Prayer ___ Reconciliation ___ Sacrament of Sick ___ Supportive presence ___ Wedding ___ Other (describe below) Pastoral Comments patient states her concern that she doesn't want to be moved about because she has pain when moving around; pt plans to go to [facility] and will welcome more spiritual care visits; step son is with patient and offering support
[2020-08-05] MEDS: oxyCODONE 5 MG Tablet PO (20:32)
[2020-08-06 02:04] VITALS: BP 138/90; PULSE 71; RESP 17; TEMP 36.6; O2SAT 92
[2020-08-06 03:00] VITALS: PULSE 70
[2020-08-06] MEDS: Levothyroxine 25 MCG TABLET PO (05:53)
[2020-08-06 06:19] LABS: Absolute Lymphocyte Count 0.78 X10^3/uL (0.83-4.51); Absolute Neutrophil Count 2.7 X10^3/uL (2.0-7.7); Basophil# 0.03 X10^3/uL; Basophil% 0.7 % (0-1); Eosinophils% 2.4 % (0-5); Hematocrit 33.5 % (37-47); Hemoglobin 11.5 g/dL (12.0-15.0); Lymphocyte # 0.78 X10^3/ul (0.83-4.51); Lymphocyte % 18.8 % (19-41); Mean Corp Hgb Conc 34.3 g/dL (32-36); Mean Corpuscular Hgb 31.3 pg (27.0-32.0); Mean Corpuscular Volume 91.3 fL (81-99); Mean Platelet Vol. 10.3 fl (6.2-12.0); Monocyte# 0.54 X10^3/uL; NRBC Flagged by Analyzer 0 % (0-5); Neutrophil # 2.68 X10^3/uL (2.7-7.7); Neutrophil % 64.9 % (47-70); Platelet Count 213 K/mm3 (150-450); RBC Distribution Width SD 47.7 fl (35.1-43.9); Red Blood Count 3.67 M/mm3 (4.2-5.4); White Blood Count 4.1 K/mm3 (4.4-11.0)
[2020-08-06 06:57] LABS: AST(SGOT) 19 U/L (15-37); Alanine Aminotransfer ALT/SGPT 13 U/L (13-56); Albumin, Serum 2.7 g/dL (3.2-5.0); Alkaline Phosphatase 49 U/L (45-117); Anion Gap 5 (5-15); BUN 20 mg/dL (7-18); BUN/Creat Ratio 44.1 RATIO (10-20); Calcium,Total 8.2 mg/dL (8.5-10.1); Chloride 101 mmol/L (98-107); Creatinine, Serum 0.45 mg/dL (0.55-1.02); EST Glomerular Filtration Rate 140 mL/min (>60); Est Glom Filt Rate - Afr Amer 170 mL/min (>60); Estimated Creatinine Clearance 25.24 ml/min; Globulin 2.7 g/dL (2.2-4.2); Glucose 83 mg/dL (74-106); Potassium 3.7 mmol/L (3.5-5.1); Protein, Total 5.4 g/dL (6.4-8.2); Sodium Level 134 mmol/L (136-145)
--- NOTE | 2020-08-06 07:11 | CASEMGMT ---
POPPY received a voice mail from [facility] this and patient was approved to go to TCU. POPPY will notify physician and patient. Madeline ARANGO
[2020-08-06 08:00] VITALS: BP 173/98; PULSE 70; RESP 16; TEMP 36.9; O2SAT 94
[2020-08-06] MEDS: Acetaminophen 325 MG Tablet 650 MG PO (08:04)
[2020-08-06 08:05] VITALS: PULSE 76
--- NOTE | 2020-08-06 08:49 | CASEMGMT ---
Addendum entered by Madeline Perry 08/06/20 10:01: POPPY called patient's stepson, Corby and let him know patient's insurance approved her to go to [facility]. SW let him know she will go today. Plan: d/c to [facility]. Madeline ARANGO Original Note: POPPY notified patient that her insurance approved her to go to [facility]. POPPY will notify her son as well. Madeline ARANGO
--- NOTE | 2020-08-06 09:59 | DS.PCM_ITS ---
Providers Date of Admission: 08/02/20 Primary Care Physician: No Primary Care Phys Reason For Visit: HYPERTENSIVE URGENCY, FALL, PELVIC FRACTURE Diagnosis Discharge Diagnosis (1) Fall: Status: Acute Code(s): W19.XXXA - Unspecified fall, initial encounter Qualifiers: Encounter type: initial encounter Qualified Code(s): W19.XXXA - Unspecified fall, initial encounter (2) Pubic ramus fracture: Status: Acute Code(s): S32.599A - Other specified fracture of unspecified pubis, initial encounter for closed fracture Qualifiers: Encounter type: initial encounter Fracture type: closed Laterality: left Qualified Code(s): S32.592A - Other specified fracture of left pubis, initial encounter for closed fracture (3) Hypertensive urgency: Status: Acute Code(s): I16.0 - Hypertensive urgency (4) High thyroid stimulating hormone (TSH) level: Status: Acute Code(s): R79.89 - Other specified abnormal findings of blood chemistry (5) Hypertension: Status: Chronic Code(s): I10 - Essential (primary) hypertension Qualifiers: Hypertension type: essential hypertension Qualified Code(s): I10 - Essential (primary) hypertension Plan: Discharge Diagnoses: 1. Mechanical fall with intractable left-sided hip and pelvic region pain with acute inferior and superior pubic rami fractures 2. Hypertensive urgency not on HTN regimen, non-compliant 3. Hypothyroidism, not on regimen, non-compliant 4. CODE status: DNR-CCA, no intubation status Medications at Discharge Home Medications acetaminophen [Tylenol] 650 mg PO Q6H PRN PRN #0 tab 08/05/20 oxycodone 5 mg PO Q4H PRN PRN #0 tab 08/05/20 sennosides-docusate sodium [Stool Softener-Stimulant Laxat] 2 tab PO BID PRN PRN #0 tab 08/05/20 amlodipine 10 mg PO DAILY 08/06/20 enoxaparin 30 mg SUBCUT DAILY 08/06/20 food supplemt, lactose-reduced [Ensure Enlive] 120 ml PO 4X/DAY 08/06/20 levothyroxine 25 mcg PO DAILY@0600 08/06/20 lisinopril 10 mg PO DAILY 08/06/20 Hospital Course Summary of Care Provided Minutes Spent on Discharge: 35 Hospital Course: The patient is an 79 y/o F w/ PMHx: Hypothyroidism (taken herself off her medication), HTN who presented to the [facility] ED on 08/02/20 with 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 Patient admitted to PCU given significant BP elevations upon presentation, plain films with no evidence of acute hip fracture however patient did have left-sided superior and inferior pubic rami fractures, maintained on fall precautions, as needed oral pain regimen, PT/OT/case management consultations for discharge planning with plan fdc facility/TCU placement once insurance amenable. Patient with significantly elevated BP upon presentation, EKG with sinus rhythm with no acute evidence of ischemia, chest x-ray with no acute cardiopulmonary findings, BP significantly improved with addition of oral regimen, will continue upon transition to PCU including Norvasc, lisinopril as well as as needed hydralazine. Patient with significant TSH elevation, not taking any Synthroid regimen, will initiate low-dose with recommendation for repeat free T4 and TSH testing in 4 to 6 weeks with further adjustment of medications as needed. Given clinical improvement per therapy recommendations patient transitioned to TCU for ongoing therapies. Recommended PCP follow-up within 1-2 days of SNF discharge to assure improved compliance/follow-up. DAY OF DISCHARGE PROGRESS NOTE: Subjective: Patient without acute event overnight per self and nursing report. Patient does report she did sleep last well and had some discomfort this morning following therapies but this improves with pain regimen. Patient denies fever, chills, nausea, emesis, abdominal pain, chest pain or dyspnea. Patient agreeable to discharge to TCU for ongoing therapies. Patient will be discharged with follow-up with primary care physician within 1 to 2 days of skilled facility discharge to assure improved follow-up and medication compliance. Objective: T 98.6, heart rate 92, BP 150/87, respiratory rate 18, 94% room air. Physical Examination: General: awake, alert, oriented x 3 and cooperative, seated upright in the PCU bedside chair, NAD, recent therapies so noting pelvic discomfort present. Skin: normal color, turgor, no icterus, cyanosis. HEENT: AT/NC, EOMI, PERRLA, MMM. Lungs: Diminished breath sounds, greater bases, appropriate effort, no rales, ronchi or wheezing. Heart: Regular rate and rhythm; no gallop, rub audible. Abdomen: soft, thin cachectic habitus, NTTP, ND, normal BS. Extremities: no cyanosis, clubbing, or edema. Neurological: patient awake, alert, oriented as noted; cognitive function suspect baseline intact; pupils equally reactive to light and accomodation; cranial nerves II-XII grossly normal, moving all 4 extremities, no focal deficits, strength improving, remains moderately to severely global decrease secondary to acute presentation with pubic rami fractures. Psychiatric: affect appears normal, no acute evidence of depressive or anxiety feelings. Assessment and Plan: Please see hospital summary above. ABG / Lab / Microbiology Data Result Diagrams: 08/06/20 05:40 08/06/20 05:40 Laboratory: Laboratory Results - last 24 hr 08/06/20 08/06/20 05:40 05:40 WBC 4.1 L RBC 3.67 L Hgb 11.5 L Hct 33.5 L MCV 91.3 MCH 31.3 MCHC 34.3 RDW Std Deviation 47.7 H RDW Coeff of Caleb 14.0 Plt Count 213 MPV 10.3 Immature Gran % (Auto) 0.200 Neut % (Auto) 64.9 Lymph % (Auto) 18.8 L [place] % (Auto) 13.0 H Eos % (Auto) 2.4 Baso % (Auto) 0.7 Absolute Neuts (auto) 2.7 Absolute Lymphs (auto) 0.78 L Nucleated RBC % 0 Sodium 134 L Potassium 3.7 Chloride 101 Carbon Dioxide 28.0 Anion Gap 5 BUN 20 H Creatinine 0.45 L Estim Creat Clear Calc 25.24 Est GFR (MDRD) Af Amer 170 Est GFR (MDRD) Non-Af 140 BUN/Creatinine Ratio 44.1 H Glucose 83 Calcium 8.2 L Total Bilirubin 0.90 AST 19 ALT 13 Alkaline Phosphatase 49 Total Protein 5.4 L Albumin 2.7 L Globulin 2.7 Albumin/Globulin Ratio 1.0 Microbiology: Microbiology 08/05/20 18:50 SARS-CoV-2 Antigen (Rapid) - Final Interface Orders Microbiology 08/05/20 18:50 Interface Orders SARS-CoV-2 Antigen (Rapid) - Final D/C Instructions Please Follow Up With: Primary Care Physician Meaningful Use Info Meaningful Use Diagnoses (Choose all that apply): None applicable Discharge Plan Admission Admit Date/Time: 08/02/20 18:35 Primary Reason for Your Visit: Debility, Fall, Pubic Rami Fractures, HTN Urgency, Hypothyroidism untreated Attending Provider: Sury Suh Primary Care Provider: Care Physician,No Primary Instructions Patient Instructions: Controlling High Blood Pressure, High Blood Pressure (Hypertension), ED Pelvic Fracture, ED Fall Dizziness Weakn Balance Additional Instructions / Restrictions: Please assure repeat TSH, Free T4 within 4-6 weeks given recent restart synthroid regimen with history of hypothyroidism. Also, it is very important to continue your hypertensive regimen. DO not stop these medications unless instructed by a physician. Discharge Orders/Prescriptions Prescriptions: New acetaminophen [Tylenol] 325 mg Tablet 650 mg PO Q6H PRN PRN (Reason: Pain Score 1-10/Temp > 100.7 F) Qty: 0 RF: 0 sennosides-docusate sodium [Stool Softener-Stimulant Laxat] 8.6-50 mg Tablet 2 tab PO BID PRN PRN (Reason: Constipation) Qty: 0 RF: 0 oxycodone 5 mg Tablet 5 mg PO Q4H PRN PRN (Reason: Pain Score 4-10) Qty: 0 RF: 0 No Action levothyroxine 25 mcg tablet 25 mcg PO DAILY@0600 RF: 0 amlodipine 10 mg tablet 10 mg PO DAILY RF: 0 lisinopril 10 mg tablet 10 mg PO DAILY RF: 0 enoxaparin 30 mg/0.3 mL syringe 30 mg subcut DAILY RF: 0 Ensure Enlive 0.08 gram-1.5 kcal/mL liquid 120 ml PO 4X/DAY RF: 0 Referrals: Care Physician,No Primary [Primary Care Provider] - Disposition Disposition (needs filled in before D/C Order can be placed): [facility] Visit Charges Inpatient E&M: 79385 Disch Hosp
--- NOTE | 2020-08-06 10:09 | CASEMGMT ---
Discharge orders completed. POPPY copied med list. POPPY notified RN and placement secretary that patient can go to TCU. Plan: d/c to [facility] TCU under skilled level of care. Madeline ARANGO
--- NOTE | 2020-08-06 10:26 | PHA.DC.MR ---
Pharmacy Service has performed discharge medication reconciliation for this patient. The patient's discharge medication list was reviewed for discrepancies and discrepancies were resolved. Home Medications acetaminophen [Tylenol] 650 mg PO Q6H PRN PRN #0 tab 08/05/20 amlodipine 10 mg PO DAILY #0 tab 08/05/20 enoxaparin 30 mg SUBCUT DAILY #0 ml 08/05/20 food supplemt, lactose-reduced [Ensure Enlive] 120 ml PO 4X/DAY #0 ml 08/05/20 levothyroxine 25 mcg PO DAILY@0600 #0 tab 08/05/20 lisinopril 10 mg PO DAILY #0 tab 08/05/20 oxycodone 5 mg PO Q4H PRN PRN #0 tab 08/05/20 sennosides-docusate sodium [Stool Softener-Stimulant Laxat] 2 tab PO BID PRN PRN #0 tab 08/05/20
[2020-08-06] MEDS: Enoxaparin 30 MG/0.3 ML Syringe SC (10:40)
[2020-08-06] MEDS: Lisinopril 10 MG Tablet PO (10:40)
[2020-08-06] MEDS: amLODIPine 10 MG Tablet PO (10:41)
[2020-08-06] MEDS: oxyCODONE 5 MG Tablet PO (10:41)
[2020-08-06 12:17] VITALS: BP 150/87; PULSE 92; RESP 18; TEMP 37; O2SAT 94
== END 2020-08-06 14:13 | disposition skilled nursing facility (03) | DRG 536 ==
LOC: ED 17:06 → PCU 18:37
PROVIDERS: Family Medicine; Admitting Provider Hospitalist; Emergency Provider Emergency Medicine; Visit Provider Family Medicine
DX: S32.592A Other specified fracture of left pubis, initial encounter for closed fracture (principal); Z68.1 Body mass index [BMI] 19.9 or less, adult; I16.0 Hypertensive urgency; R63.4 Abnormal weight loss; E03.9 Hypothyroidism, unspecified; I10 Essential (primary) hypertension; Z66 Do not resuscitate; W19.XXXA Unspecified fall, initial encounter; Y93.9 Activity, unspecified; Y92.9 Unspecified place or not applicable; Z91.14 Patient's other noncompliance with medication regimen
CPT/HCPCS: 36415; 71045; 73502; 80048; 80053; 81001; 83735; 84436; 84439; 84443; 84481; 85025; 87426; 93005; 97110; 97116; 97162; 97165; 97530; 97535; 99251; 99285; J7030; J7120; A4216; G0463; J2405

== ENCOUNTER 2020-08-06 14:20 | Inpatient (IN) | payer MEDICARE, SELFPAY ==
[2020-08-06 14:29] VITALS: BP 158/99; PULSE 93; RESP 18; TEMP 36.3; O2SAT 98; BMI 15.7
--- NOTE | 2020-08-06 16:41 | CASEMGMT ---
POPPY Note POPPY met with patient to complete the TPU intake assessment. Discussed code status with patient and she confirmed she wants to be a DNRCC-A with no intubation. MOLST form reviewed. Communication to Dr causey in chart. Patient reports she was at her mailbox and she fell. Patient said that she shut the mailbox and step back and I lost my balance. Patient denied history of falling. Patient said that she has never been in rehab or SNF in the past. Patient reports she does not have MOW as she makes too much money. Patient is interested in [facility] medic alert information. Pt was able to report her name and birthday, knew her current location and knew the current president. Patient reports her mauricioon, who reside in [place] but works at a farm in [place], is her POA. Patient is interested in obtaining information on advanced directives and [facility] medic alert system. Patient reports she is unsure of her discharge plan at this time. Adelita BELL
[2020-08-06 19:02] VITALS: RESP 18; O2SAT 93
[2020-08-06] MEDS: Senna/Docusate Sodium 1 Tablet 2 TABLET PO (20:28)
[2020-08-06] MEDS: oxyCODONE 5 MG Tablet PO (20:28)
--- NOTE | 2020-08-06 21:20 | HP.PCM_ITS ---
HPI - General General Date of Admission: 08/06/20 HPI Narrative 08/02/2020 DANIELE WYATT, is a 79 FEMALE WITH BELOW PAST MEDICAL HISTORY PRESENTED TO [facility] EMERGENCY DEPARTMENT WITH FALL, LEFT HIP PAIN. FELL ON LEFT HIP, LANDED ON RUG, UNABLE TO GET UP. NO PRIMARY CARE FOR 5 YEARS, SIGNIFICANT WEIGHT LOSS. X-RAY SHOWED PELVIC FRACTURE. PAIN MEDS GIVEN, HYDRALAZINE GIVEN FOR ELEVATED BLOOD PRESSURE 200 SYSTOLIC. 08/02/2020 ADMIT TO HOSPITAL OXYCODONE, TYLENOL, GENTLE IV FLUIDS, ZOFRAN, PT/OT, FOR PELVIC FRACTURE. NORVASC 10MG DAILY, LISINOPRIL HCT, HYDRALAZINE PRN ELEVATED BLOOD PRESSURE. LEVOTHYROXINE 25MCG DAILY FOR HYPOTHYROIDISM. 08/03/2020 DECLINED PT. PAIN RESOLVED. 08/04/2020 DID NOT SLEEP WELL. 08/05/2020 SOME PELVIC PAIN WITH MOVEMENT. 08/06/2020 ADMIT TO TCU WITH DEBILITY, HERE FOR REHABILITATION, STRENGTHENING, PRIOR TO DISCHARGE HOME ALONE. [facility] Medical History (Updated 08/06/20 @ 21:[address] Donald Hernandez MD) Hypertension Hypothyroidism Home Medications acetaminophen [Tylenol] 650 mg PO Q6H PRN PRN #0 tab 08/05/20 [Rx Last Taken Unknown] oxycodone 5 mg PO Q4H PRN PRN #0 tab 08/05/20 [Rx Last Taken Unknown] sennosides-docusate sodium [Stool Softener-Stimulant Laxat] 2 tab PO BID PRN PRN #0 tab 08/05/20 [Rx Last Taken Unknown] amlodipine 10 mg PO DAILY 08/06/20 [History Last Taken Unknown] enoxaparin 30 mg SUBCUT DAILY 08/06/20 [History Last Taken Unknown] food supplemt, lactose-reduced [Ensure Enlive] 120 ml PO 4X/DAY 08/06/20 [History Last Taken Unknown] levothyroxine 25 mcg PO DAILY@0600 08/06/20 [History Last Taken Unknown] lisinopril 10 mg PO DAILY 08/06/20 [History Last Taken Unknown] Allergy/AdvReac Type Severity Reaction Status Date / Time No Known Allergies Allergy Verified 08/02/20 15:19 Surgical History Total knee replacement status Social History household members: none housing: apartment Smoking Status: Never smoker alcohol intake: never ROS Constitutional Constitutional: Denies chills, fever(s) or weight gain ENT HEENT: Denies headache(s), nasal congestion or nasal discharge Cardiovascular Cardiovascular: Denies chest pain or palpitations Respiratory/Chest Respiratory/Chest: Denies cough, excessive phlegm production or shortness of breath with exertion Gastrointestinal Gastrointestinal: Denies abdominal pain, nausea or vomiting Genitourinary Genitourinary: Denies dysuria Musculoskeletal Musculoskeletal: Denies joint pain or joint swelling Integumentary Integumentary: Denies rash or wounds Neurologic Neurologic: Denies focal weakness, numbness or tingling Psychiatric Psychiatric: Reports auditory hallucinations; Denies anxiety, depression, homicidal ideation or suicidal ideation Vital Signs Vital Signs Vital Signs: 08/06/20 14:29 08/06/20 19:02 Temperature 97.4 F L Temperature Source Temporal Pulse Rate 93 Pulse Rhythm Regular Pulse Strength Normal (2+) Respiratory Rate 18 18 Respiratory Effort Normal Normal Non-Labored Respiratory Depth Normal Normal Respiratory Pattern Normal Normal Blood Pressure 158/99 H Blood Pressure Mean 118 Blood Pressure Source Monitor Blood Pressure Position Semi-Fowlers Blood Pressure Location Left Arm Pulse Ox 98 93 Oxygen Delivery Method Room Air Room Air Physical Exam Const alert and oriented x3 General Appearance: cooperative HEENT normocephalic Eyes PERRL and EOMs intact bilaterally Neck supple, no JVD and no carotid bruits Resp normal respiratory effort, normal air movement and clear to auscultation bilaterally Cardio regular rate and regular rhythm GI normal to inspection, nondistended, normoactive bowel sounds, non-tender and non-distended Extremity normal capillary refill General Extremity: Negative for edema Skin no rashes or lesions noted General Skin Exam: no breakdown Psych affect normal Appearance: appropriate Lab / Micro Data Labs: Laboratory Results - last 24 hr 08/06/20 18:07 COVID-19 (RYDER) Not Detected Assessment & Plan Assessment/Plan (1) Debility: Status: Acute Code(s): R53.81 - Other malaise (2) Fall: Status: Acute Code(s): W19.XXXA - Unspecified fall, initial encounter Qualifiers: Encounter type: initial encounter Qualified Code(s): W19.XXXA - Unspecified fall, initial encounter (3) Pelvic fracture: Status: Acute Code(s): S32.9XXA - Fracture of unspecified parts of lumbosacral spine and pelvis, initial encounter for closed fracture (4) Hypertension: Status: Chronic Code(s): I10 - Essential (primary) hypertension Qualifiers: Hypertension type: essential hypertension Qualified Code(s): I10 - Essential (primary) hypertension (5) Hypothyroidism: Status: Acute Code(s): E03.9 - Hypothyroidism, unspecified Plan: 79 YEAR OLD FEMALE WITH BELOW PAST MEDICAL HISTORY HOSPITALIZED FOR FALL, PELVIC FRACTURE, ADMITTED TO TCU WITH DEBILITY, HERE FOR REHABILITATION, STRENGTHENING, PRIOR TO DISCHARGE HOME ALONE. Debility - PT/OT. Dysphagia - ST. Pain - Tylenol 650MG Q6H PRN, Oxycodone 5MG Q4H PRN. Bowel - Senna/colace 2 tablets BID PRN, Fleets enema VT daily PRN. Adult immunization - Administer Prevnar 13, Pneumovax 23, Fluzone, COVID19 vaccine as appropriate. DVT prophylaxis - Lovenox 30MG SC daily. Hypertension - Lisinopril 10MG daily, Amlodipine 10MG daily. Nutrition - Ensure Enlive 120ML 4x/day. Hypothyroidism - Levothyroxine 25MCG daily. Skin irritation - Calmoseptine topical bid. Nausea - Zofran 4MG IV Q8H PRN.
[2020-08-07 03:05] VITALS: BP 154/85; PULSE 84; RESP 16; TEMP 36.3; O2SAT 92
[2020-08-07] MEDS: amLODIPine 10 MG Tablet PO (05:21)
[2020-08-07] MEDS: Lisinopril 10 MG Tablet PO (05:21)
[2020-08-07] MEDS: oxyCODONE 5 MG Tablet PO (05:21)
[2020-08-07] MEDS: Menthol/Lanolin/Calamine/Znox 113 GM Tube 1 APPLIC TOPICAL ×2 (05:21→17:13)
[2020-08-07] MEDS: Enoxaparin 30 MG/0.3 ML Syringe SC (05:21)
[2020-08-07] MEDS: Levothyroxine 25 MCG TABLET PO (05:21)
[2020-08-07 06:01] LABS: Absolute Lymphocyte Count 0.68 X10^3/uL (0.83-4.51); Absolute Neutrophil Count 3.7 X10^3/uL (2.0-7.7); Basophil# 0.04 X10^3/uL; Basophil% 0.8 % (0-1); Eosinophil# 0.09 X10^3/uL; Eosinophils% 1.7 % (0-5); Hematocrit 37.3 % (37-47); Hemoglobin 12.1 g/dL (12.0-15.0); Lymphocyte # 0.68 X10^3/ul (0.83-4.51); Lymphocyte % 12.9 % (19-41); Mean Corp Hgb Conc 32.4 g/dL (32-36); Mean Corpuscular Hgb 29.8 pg (27.0-32.0); Mean Corpuscular Volume 91.9 fL (81-99); Mean Platelet Vol. 10.2 fl (6.2-12.0); Monocyte# 0.71 X10^3/uL; Monocyte% 13.5 % (0-10); NRBC Flagged by Analyzer 0 % (0-5); Neutrophil # 3.72 X10^3/uL (2.7-7.7); Neutrophil % 70.5 % (47-70); Platelet Count 225 K/mm3 (150-450); RBC Distribution Width CV 14.2 % (11.6-14.6); RBC Distribution Width SD 47.8 fl (35.1-43.9); Red Blood Count 4.06 M/mm3 (4.2-5.4); White Blood Count 5.3 K/mm3 (4.4-11.0)
[2020-08-07 06:31] LABS: Anion Gap 4 (5-15); BUN 20 mg/dL (7-18); BUN/Creat Ratio 40.9 RATIO (10-20); Calcium,Total 8.8 mg/dL (8.5-10.1); Chloride 102 mmol/L (98-107); Creatinine, Serum 0.49 mg/dL (0.55-1.02); EST Glomerular Filtration Rate 129 mL/min (>60); Est Glom Filt Rate - Afr Amer 156 mL/min (>60); Estimated Creatinine Clearance 27.31 ml/min; Glucose 88 mg/dL (74-106); Potassium 3.9 mmol/L (3.5-5.1); Sodium Level 134 mmol/L (136-145)
[2020-08-07] MEDS: Tuberculin,Purif.prot.deriv. 50 TU/ML Vial 5 ML ID (09:05)
--- NOTE | 2020-08-07 12:18 | PCM.PN.RX ---
Progress Note - Pharmacy Subjective: TCU Admission Objective: Allergies No Known Allergies Allergy (Verified 08/02/20 15:19) Current Medications Generic Name Dose Route Start Last Admin Trade Name Freq PRN Reason Stop Dose Admin Acetaminophen 650 mg 08/06/20 14:38 Acetaminophen 325 Mg Tablet PO Q6H PRN PRN Pain Score 1-10/Temp > 100.7 F Amlodipine Besylate 10 mg 08/07/20 06:00 08/07/20 05:21 Amlodipine 10 Mg Tablet PO 10 mg DAILY VALENTINE Administration Calamine/Phenol 1 applic 08/07/20 06:00 08/07/20 05:21 Menthol/Lanolin/Calamine/Znox 113 Gm Tube TOPICAL 1 applic BID VALENTINE Administration Protocol Enoxaparin Sodium 30 mg 08/07/20 06:00 08/07/20 05:21 Enoxaparin 30 Mg/0.3 Ml Syringe SC 30 mg DAILY VALENTINE Administration Levothyroxine Sodium 25 mcg 08/07/20 06:00 08/07/20 05:21 Levothyroxine 25 Mcg Tablet PO 25 mcg DAILY@0600 VALENTINE Administration Lisinopril 10 mg 08/07/20 06:00 08/07/20 05:21 Lisinopril 10 Mg Tablet PO 10 mg DAILY VALENTINE Administration Nutritional Formula (Lactose Free) 120 ml 08/06/20 17:00 08/07/20 11:05 Ensure Enlive 120 Ml Liquid PO 120 ml 4X/DAY VALENTINE Administration Ondansetron HCl 4 mg 08/06/20 14:38 Ondansetron 4 Mg/2 Ml Vial IV Q8H PRN PRN NAUSEA/VOMITING Oxycodone HCl 5 mg 08/06/20 14:38 08/07/20 05:21 Oxycodone 5 Mg Tablet PO 5 mg Q4H PRN PRN Administration Pain Score 4-10 Senna/Docusate Sodium 2 tablet 08/06/20 14:38 08/06/20 20:28 Senna/Docusate Sodium 1 Tablet PO 2 tablet BID PRN PRN Administration Constipation Sodium Biphosphate/Sodium Phosphate 1 bottle 08/06/20 14:47 Fleet Enema RC DAILY PRN Constipation Tuberculin PPD 5 tu 08/14/20 10:00 Tuberculin,Purif.Prot.Deriv. 50 Tu/Ml Vial ID 08/14/20 10:01 X1 ONE Problem List (Last Updated 08/06/20 @ 21:[address] Donald Hernandez MD) Hypothyroidism (Acute) Pelvic fracture (Acute) Debility (Acute) Fall (Acute) Hypertension (Chronic) Vital Signs Temp Pulse Resp BP Pulse Ox 97.4 F L 84 16 154/85 H 92 08/07/20 03:05 08/07/20 03:05 08/07/20 03:05 08/07/20 03:05 08/07/20 03:05 Oxygen Delivery Method Room Air Weight: 39.207 kg Body Mass Index (BMI) 15.7 Sodium 134 mmol/L (136-145) L 08/07/20 05:05 Potassium 3.9 mmol/L (3.5-5.1) 08/07/20 05:05 Chloride 102 mmol/L (98-107) 08/07/20 05:05 Carbon Dioxide 28.0 mmol/L (21.0-32.0) 08/07/20 05:05 Anion Gap 4 (5-15) L 08/07/20 05:05 BUN 20 mg/dL (7-18) H 08/07/20 05:05 Creatinine 0.49 mg/dL (0.55-1.02) L 08/07/20 05:05 Est GFR (MDRD) Af Amer 156 mL/min (>60) 08/07/20 05:05 Est GFR (MDRD) Non-Af 129 mL/min (>60) 08/07/20 05:05 BUN/Creatinine Ratio 40.9 RATIO (10-20) H 08/07/20 05:05 Glucose 88 mg/dL (74-106) 08/07/20 05:05 Assessment/Plan: 1. Pain: acetaminophen 650mg PO Q6H PRN pain 1-10/temp >100.7 and oxycodone 5mg PO Q4H PRN pain 4-10/10. Please continue to monitor for increased pain and PRN usage. 2. DVT prophylaxis: enoxaparin 30mg SC daily. Please continue to monitor renal function, S/S of bleeding, hemoglobin (last 12.1g/dL) and platelets (last 225,000). 3. Hypertension: lisinopril 10mg PO daily and amlodipine 10mg PO daily. Please continue to monitor BP (last 154/85), renal function, potassium (last 3.9mmol/L), cough and swelling. 4. Hypothyroidism: levothyroxine 25mcg PO daily. Please continue to monitor for S/S of hypo/hyperthyrodisim and TSH (last 08/02/20). 5. Nausea: ondansetron 4mg IV Q8H PRN nausea/vomiting. Please continue to monitor for nausea, vomiting, and PRN usage. Psychotropic Medications: None Unnecessary Medications: None Bowel Regimen: senna/docusate 2T PO BID PRN constipation and fleet enema MI daily PRN constipation. Please continue to monitor for constipation and PRN usage. Date of Note:: 08/07/20
--- NOTE | 2020-08-07 14:02 | NURSING ---
Pt refused to try stool softeners, but was willing to drink warm prune juice with butter, result effective pt had medium formed bowel movement
[2020-08-07 14:55] VITALS: BP 145/82; PULSE 98; RESP 16; TEMP 37; O2SAT 93
--- NOTE | 2020-08-07 16:24 | CHAPLAIN ---
Type of Pastoral Visit _x__ Initial Visit ___ Follow-up Visit ___ On-call Visit ___ General Patient Visit ___ Spiritual Assessment ___ Family Conference ___ Bereavement ___ Rapid Response ___ Code Blue ___ Other (describe below) Pastoral Care Referral From _x__ Patient ___ Family ___ Nurse ___ Physician ___ Prototype Engineer ___ Mitten Stitcher ___ Other (describe below) Sacrament/Intervention _x__ Active listening ___ Anointing ___ Yazidism ___ Bereavement ___ Communion ___ Louise exploration ___ _x__ Life review _x__ Prayer ___ Reconciliation ___ Sacrament of Sick _x__ Supportive presence ___ Wedding ___ Other (describe below) Pastoral Comments
[2020-08-08 05:00] VITALS: BP 130/74; PULSE 89; RESP 14; TEMP 36.9; O2SAT 92
[2020-08-08] MEDS: Lisinopril 10 MG Tablet PO (05:39)
[2020-08-08] MEDS: Enoxaparin 30 MG/0.3 ML Syringe SC (05:40)
[2020-08-08] MEDS: amLODIPine 10 MG Tablet PO (05:40)
[2020-08-08] MEDS: Levothyroxine 25 MCG TABLET PO (05:40)
[2020-08-08] MEDS: oxyCODONE 5 MG Tablet PO ×2 (05:41→20:23)
[2020-08-08] MEDS: Menthol/Lanolin/Calamine/Znox 113 GM Tube 1 APPLIC TOPICAL ×2 (05:42→16:59)
[2020-08-08 10:30] VITALS: PULSE 92; RESP 18; O2SAT 93
[2020-08-08 13:52] VITALS: BP 118/75; PULSE 90; RESP 18; TEMP 36.6; O2SAT 96
--- NOTE | 2020-08-09 00:17 | NURSING ---
Pt reported to TELEPHONE ENGINEER of feeling dizzy. This nurse in to assess. hx of HTN and hypothyroidism noted, pain level at a 7 in pelvis- oxy given around 830, BP at 135/77 hr at 75. Pt unsure if dizziness was just from getting up for the restroom, she feels it may be due to pain meds, will continue to monitor. RN aware.
[2020-08-09 04:47] VITALS: BP 133/75; PULSE 66; RESP 18; TEMP 36.6; O2SAT 95
[2020-08-09] MEDS: Menthol/Lanolin/Calamine/Znox 113 GM Tube 1 APPLIC TOPICAL ×2 (04:49→17:43)
[2020-08-09] MEDS: Enoxaparin 30 MG/0.3 ML Syringe SC (04:49)
[2020-08-09] MEDS: amLODIPine 10 MG Tablet PO (04:49)
[2020-08-09] MEDS: Levothyroxine 25 MCG TABLET PO (04:50)
[2020-08-09] MEDS: Lisinopril 10 MG Tablet PO (04:50)
[2020-08-09] MEDS: Acetaminophen 325 MG Tablet 650 MG PO (12:53)
[2020-08-09 13:51] VITALS: BP 116/76; PULSE 91; RESP 18; TEMP 37; O2SAT 90
--- NOTE | 2020-08-09 16:45 | PCM.DC.SUM ---
Providers Date of Admission: 08/06/20 Primary Care Physician: Kristie Primary Care Phys Reason For Visit: HTN URGENCY/FALL/PELVIC FX Diagnosis Discharge Diagnosis (1) Debility: Status: Acute Code(s): R53.81 - Other malaise (2) Fall: Status: Acute Code(s): W19.XXXA - Unspecified fall, initial encounter Qualifiers: Encounter type: initial encounter Qualified Code(s): W19.XXXA - Unspecified fall, initial encounter (3) Pelvic fracture: Status: Acute Code(s): S32.9XXA - Fracture of unspecified parts of lumbosacral spine and pelvis, initial encounter for closed fracture (4) Hypertension: Status: Chronic Code(s): I10 - Essential (primary) hypertension Qualifiers: Hypertension type: essential hypertension Qualified Code(s): I10 - Essential (primary) hypertension (5) Hypothyroidism: Status: Acute Code(s): E03.9 - Hypothyroidism, unspecified Medications at Discharge Home Medications acetaminophen [Tylenol] 650 mg PO Q6H PRN PRN #0 tab 08/05/20 oxycodone 5 mg PO Q4H PRN PRN #0 tab 08/05/20 sennosides-docusate sodium [Stool Softener-Stimulant Laxat] 2 tab PO BID PRN PRN #0 tab 08/05/20 amlodipine 10 mg PO DAILY 08/06/20 enoxaparin 30 mg SUBCUT DAILY 08/06/20 food supplemt, lactose-reduced [Ensure Enlive] 120 ml PO 4X/DAY 08/06/20 levothyroxine 25 mcg PO DAILY@0600 08/06/20 lisinopril 10 mg PO DAILY 08/06/20 ABG / Lab / Microbiology Data Result Diagrams: 08/07/20 05:05 08/07/20 05:05 Discharge Plan Admission Admit Date/Time: 08/06/20 14:20 Attending Provider: Donald Hernandez Chi Primary Care Provider: Care Physician,Krsitie Primary Discharge Orders/Prescriptions Prescriptions: No Action acetaminophen [Tylenol] 325 mg Tablet 650 mg PO Q6H PRN PRN (Reason: Pain Score 1-10/Temp > 100.7 F) Qty: 0 RF: 0 sennosides-docusate sodium [Stool Softener-Stimulant Laxat] 8.6-50 mg Tablet 2 tab PO BID PRN PRN (Reason: Constipation) Qty: 0 RF: 0 oxycodone 5 mg Tablet 5 mg PO Q4H PRN PRN (Reason: Pain Score 4-10) Qty: 0 RF: 0 levothyroxine 25 mcg tablet 25 mcg PO DAILY@0600 RF: 0 amlodipine 10 mg tablet 10 mg PO DAILY RF: 0 lisinopril 10 mg tablet 10 mg PO DAILY RF: 0 enoxaparin 30 mg/0.3 mL syringe 30 mg subcut DAILY RF: 0 Ensure Enlive 0.08 gram-1.5 kcal/mL liquid 120 ml PO 4X/DAY RF: 0 Referrals / Follow Up: Care Physician,No Primary [Primary Care Provider] - Disposition Discharge Orders: Discharge Patient (Routine); Ordered 08/06/20 Ordered By: Dr. Donald Hernandez
[2020-08-10 05:46] VITALS: BP 146/78; PULSE 67; RESP 16; TEMP 36.5; O2SAT 95
[2020-08-10] MEDS: Acetaminophen 325 MG Tablet 650 MG PO (05:47)
[2020-08-10] MEDS: Levothyroxine 25 MCG TABLET PO (05:48)
[2020-08-10] MEDS: Lisinopril 10 MG Tablet PO (05:48)
[2020-08-10] MEDS: amLODIPine 10 MG Tablet PO (05:48)
[2020-08-10] MEDS: Enoxaparin 30 MG/0.3 ML Syringe SC (05:48)
[2020-08-10] MEDS: Menthol/Lanolin/Calamine/Znox 113 GM Tube 1 APPLIC TOPICAL ×2 (05:51→17:04)
--- NOTE | 2020-08-10 08:59 | NURSING ---
pt nauseated,pt put on bed side due to pt stated she felt like she needed to have a bm. rn aware.
[2020-08-10 10:00] VITALS: PULSE 71; RESP 18; O2SAT 95
--- NOTE | 2020-08-10 10:50 | NURSING ---
PT HAD LARGE BM AND STATED SHE FELT BETTER BUT HAD SOME INDIGESTION. ASKED PT WHAT SHE DOES AT HOME FOR IT PT STATED I JUST DRINK MORE WATER. WATER PITCHER FILLED. PT IN BED TURNED TO RIGHT SIDE,HEELS UP,CALL LIGHT IN REACH. RN AWARE.
[2020-08-10 13:11] VITALS: BP 118/59; PULSE 85; RESP 18; TEMP 36.9; O2SAT 93
[2020-08-10] MEDS: oxyCODONE 5 MG Tablet PO (19:47)
[2020-08-11] MEDS: Menthol/Lanolin/Calamine/Znox 113 GM Tube 1 APPLIC TOPICAL ×2 (04:50→16:47)
[2020-08-11] MEDS: Enoxaparin 30 MG/0.3 ML Syringe SC (04:50)
[2020-08-11] MEDS: Lisinopril 10 MG Tablet PO (04:51)
[2020-08-11] MEDS: Levothyroxine 25 MCG TABLET PO (04:51)
[2020-08-11] MEDS: amLODIPine 10 MG Tablet PO (04:51)
[2020-08-11 04:53] VITALS: BP 159/78; PULSE 72; RESP 18; TEMP 36.6; O2SAT 93
[2020-08-11] MEDS: Acetaminophen 325 MG Tablet 650 MG PO ×2 (08:47→16:53)
[2020-08-11 14:46] VITALS: BP 111/67; PULSE 76; RESP 16; TEMP 37.1; O2SAT 94
[2020-08-11 22:00] VITALS: PULSE 77; O2SAT 98
[2020-08-12 05:00] VITALS: BP 149/84; PULSE 64; RESP 12; TEMP 36.8; O2SAT 96
[2020-08-12] MEDS: Enoxaparin 30 MG/0.3 ML Syringe SC (06:30)
[2020-08-12] MEDS: Levothyroxine 25 MCG TABLET PO (06:30)
[2020-08-12] MEDS: Lisinopril 10 MG Tablet PO (06:30)
[2020-08-12] MEDS: amLODIPine 10 MG Tablet PO (06:30)
[2020-08-12] MEDS: Menthol/Lanolin/Calamine/Znox 113 GM Tube 1 APPLIC TOPICAL ×2 (06:31→16:32)
[2020-08-12] MEDS: Acetaminophen 325 MG Tablet 650 MG PO (06:33)
[2020-08-12 14:36] VITALS: BP 117/67; PULSE 80; RESP 16; TEMP 36.5; O2SAT 94
[2020-08-13] MEDS: Menthol/Lanolin/Calamine/Znox 113 GM Tube 1 APPLIC TOPICAL ×2 (04:58→17:21)
[2020-08-13 05:00] VITALS: BP 147/76; PULSE 58; RESP 17; TEMP 36.9; O2SAT 99
[2020-08-13] MEDS: oxyCODONE 5 MG Tablet PO ×2 (05:02→20:37)
[2020-08-13] MEDS: amLODIPine 10 MG Tablet PO (05:02)
[2020-08-13] MEDS: Lisinopril 10 MG Tablet PO (05:02)
[2020-08-13] MEDS: Levothyroxine 25 MCG TABLET PO (05:02)
[2020-08-13] MEDS: Enoxaparin 30 MG/0.3 ML Syringe SC (05:03)
[2020-08-13] MEDS: Ondansetron ODT 4 MG Tablet PO (08:40)
[2020-08-13 14:46] VITALS: BP 100/62; PULSE 87; RESP 18; TEMP 36.7; O2SAT 96
[2020-08-13 15:51] VITALS: PULSE 87; RESP 16; O2SAT 96
[2020-08-14 05:00] VITALS: BP 141/82; PULSE 68; RESP 16; TEMP 36.6; O2SAT 97
[2020-08-14] MEDS: Lisinopril 10 MG Tablet PO (05:35)
[2020-08-14] MEDS: amLODIPine 10 MG Tablet PO (05:35)
[2020-08-14] MEDS: Enoxaparin 30 MG/0.3 ML Syringe SC (05:35)
[2020-08-14] MEDS: Levothyroxine 25 MCG TABLET PO (05:35)
[2020-08-14] MEDS: Menthol/Lanolin/Calamine/Znox 113 GM Tube 1 APPLIC TOPICAL ×2 (05:36→17:55)
[2020-08-14 05:49] LABS: Absolute Lymphocyte Count 0.93 X10^3/uL (0.83-4.51); Absolute Neutrophil Count 3.5 X10^3/uL (2.0-7.7); Basophil# 0.02 X10^3/uL; Basophil% 0.4 % (0-1); Eosinophil# 0.06 X10^3/uL; Eosinophils% 1.2 % (0-5); Hemoglobin 10.7 g/dL (12.0-15.0); Lymphocyte # 0.93 X10^3/ul (0.83-4.51); Lymphocyte % 18.3 % (19-41); Mean Corp Hgb Conc 32.4 g/dL (32-36); Mean Corpuscular Hgb 29.7 pg (27.0-32.0); Mean Corpuscular Volume 91.7 fL (81-99); Mean Platelet Vol. 9.7 fl (6.2-12.0); Monocyte# 0.57 X10^3/uL; Monocyte% 11.2 % (0-10); NRBC Flagged by Analyzer 0 % (0-5); Neutrophil % 68.7 % (47-70); Platelet Count 292 K/mm3 (150-450); RBC Distribution Width CV 14.2 % (11.6-14.6); White Blood Count 5.1 K/mm3 (4.4-11.0)
[2020-08-14 06:09] LABS: Anion Gap 6 (5-15); BUN 27 mg/dL (7-18); BUN/Creat Ratio 60.9 RATIO (10-20); Calcium,Total 8.5 mg/dL (8.5-10.1); Chloride 100 mmol/L (98-107); Creatinine, Serum 0.44 mg/dL (0.55-1.02); EST Glomerular Filtration Rate 144 mL/min (>60); Est Glom Filt Rate - Afr Amer 175 mL/min (>60); Estimated Creatinine Clearance 28.12 ml/min; Glucose 78 mg/dL (74-106); Potassium 4.7 mmol/L (3.5-5.1); Sodium Level 133 mmol/L (136-145)
[2020-08-14] MEDS: Tuberculin,Purif.prot.deriv. 50 TU/ML Vial 5 ML ID (10:00)
[2020-08-14] MEDS: Iron Polysaccharide Complex 150 MG CAPSULE PO (10:00)
[2020-08-14] MEDS: Acetaminophen 325 MG Tablet 650 MG PO (10:00)
[2020-08-14 14:31] VITALS: BP 149/88; PULSE 86; RESP 16; TEMP 37.1; O2SAT 93
--- NOTE | 2020-08-14 15:34 | CASEMGMT ---
Social Work IDT met with patient and step son via conference call for care plan meeting. Discussed patient's progress in therapy and nursing. Pt progressing well, however, still needing assistance with ADLs. Explained insurance update 08/19 and continued stay is not guaranteed. Pt's goal is to return home alone. Inquired about assistance in the home for pt safety. Step son works during the day but can stop in if needed and after work. His is willing to check in as well. However, during the day, specifically to assist with toileting tasks, recommending having assistance at the home. Pt and step son agreed. Offered to provide nonskilled [facility] list - step son agreeable. Emailed list and [employer] resources. IDT recommending continued stay to gain more independence for safety at home. SW to continue to follow. Candace Asher, ORBITREAD OPERATOR KEY PUNCH OPERATOR
[2020-08-15] MEDS: Menthol/Lanolin/Calamine/Znox 113 GM Tube 1 APPLIC TOPICAL ×2 (05:20→16:41)
[2020-08-15] MEDS: Lisinopril 10 MG Tablet PO (05:21)
[2020-08-15] MEDS: amLODIPine 10 MG Tablet PO (05:21)
[2020-08-15] MEDS: Levothyroxine 25 MCG TABLET PO (05:21)
[2020-08-15 05:23] VITALS: BP 138/75; PULSE 62; RESP 16; TEMP 36.7; O2SAT 95
[2020-08-15] MEDS: Acetaminophen 325 MG Tablet 650 MG PO ×2 (09:06→19:46)
[2020-08-15] MEDS: Iron Polysaccharide Complex 150 MG CAPSULE PO (09:08)
[2020-08-15] MEDS: Senna/Docusate Sodium 1 Tablet 2 TABLET PO (11:10)
[2020-08-15 14:20] VITALS: BP 118/64; PULSE 85; RESP 14; TEMP 36.4; O2SAT 92
[2020-08-15 19:49] VITALS: RESP 18
[2020-08-15] MEDS: oxyCODONE 5 MG Tablet PO (22:00)
[2020-08-16 05:38] LABS: Hemoglobin 10.3 g/dL (12.0-15.0)
[2020-08-16 06:12] VITALS: BP 145/73; PULSE 64; RESP 16; TEMP 36.8; O2SAT 96
[2020-08-16] MEDS: Menthol/Lanolin/Calamine/Znox 113 GM Tube 1 APPLIC TOPICAL ×2 (06:13→18:09)
[2020-08-16] MEDS: Lisinopril 10 MG Tablet PO (06:16)
[2020-08-16] MEDS: Levothyroxine 25 MCG TABLET PO (06:16)
[2020-08-16] MEDS: amLODIPine 10 MG Tablet PO (06:16)
[2020-08-16] MEDS: Senna/Docusate Sodium 1 Tablet 2 TABLET PO ×2 (09:11→18:11)
[2020-08-16] MEDS: Ondansetron ODT 4 MG Tablet PO (09:15)
[2020-08-16 10:00] VITALS: RESP 16
[2020-08-16] MEDS: Iron Polysaccharide Complex 150 MG CAPSULE PO (11:43)
[2020-08-16] MEDS: Acetaminophen 325 MG Tablet 650 MG PO (12:47)
[2020-08-16 15:23] VITALS: BP 110/65; PULSE 76; RESP 18; TEMP 36.6; O2SAT 96
[2020-08-16] MEDS: oxyCODONE 5 MG Tablet PO (21:57)
[2020-08-17 05:00] VITALS: BP 148/73; PULSE 59; RESP 18; O2SAT 95
[2020-08-17] MEDS: Lisinopril 10 MG Tablet PO (05:33)
[2020-08-17] MEDS: Polyethylene Glycol 3350 17 GM PACKET PO (05:33)
[2020-08-17] MEDS: amLODIPine 10 MG Tablet PO (05:33)
[2020-08-17] MEDS: Levothyroxine 25 MCG TABLET PO (05:33)
[2020-08-17] MEDS: Menthol/Lanolin/Calamine/Znox 113 GM Tube 1 APPLIC TOPICAL ×2 (05:33→17:15)
[2020-08-17] MEDS: Senna/Docusate Sodium 1 Tablet 2 TABLET PO ×2 (05:33→17:14)
[2020-08-17] MEDS: Iron Polysaccharide Complex 150 MG CAPSULE PO (08:22)
--- NOTE | 2020-08-17 09:49 | NURSING ---
Pt refusing to try SSE at this time, will try again later
[2020-08-17 14:22] VITALS: BP 121/71; PULSE 89; RESP 14; TEMP 36.8; O2SAT 91
--- NOTE | 2020-08-17 15:10 | NURSING ---
Addendum entered by Brooke Daniel 08/17/20 16:28: No results, Prune juice with butter given per request Original Note: pt agreeable to SSE enema at this time. SSE given pt unable to retain most of it, will monitor effectiveness.
[2020-08-17] MEDS: oxyCODONE 5 MG Tablet PO (18:58)
[2020-08-17 20:23] VITALS: RESP 16
[2020-08-18 05:27] VITALS: BP 148/80; PULSE 67; RESP 18; TEMP 36.9; O2SAT 96
[2020-08-18] MEDS: Polyethylene Glycol 3350 17 GM PACKET PO (05:39)
[2020-08-18] MEDS: Menthol/Lanolin/Calamine/Znox 113 GM Tube 1 APPLIC TOPICAL ×2 (05:39→17:54)
[2020-08-18] MEDS: Levothyroxine 25 MCG TABLET PO (05:40)
[2020-08-18] MEDS: amLODIPine 10 MG Tablet PO (05:40)
[2020-08-18] MEDS: Senna/Docusate Sodium 1 Tablet 2 TABLET PO (05:40)
[2020-08-18] MEDS: Lisinopril 10 MG Tablet PO (05:40)
[2020-08-18] MEDS: Iron Polysaccharide Complex 150 MG CAPSULE PO (09:19)
[2020-08-18 14:00] VITALS: BP 139/81; PULSE 89; RESP 16; TEMP 36.9; O2SAT 93
[2020-08-18] MEDS: oxyCODONE 5 MG Tablet PO (20:44)
[2020-08-18 20:59] VITALS: PULSE 81; RESP 16; O2SAT 95
[2020-08-19 04:29] VITALS: BP 127/71; PULSE 81; RESP 16; TEMP 37.2; O2SAT 95
[2020-08-19] MEDS: Levothyroxine 25 MCG TABLET PO (06:09)
[2020-08-19] MEDS: Senna/Docusate Sodium 1 Tablet 2 TABLET PO ×2 (06:09→17:19)
[2020-08-19] MEDS: Lisinopril 10 MG Tablet PO (06:09)
[2020-08-19] MEDS: amLODIPine 10 MG Tablet PO (06:09)
[2020-08-19] MEDS: Polyethylene Glycol 3350 17 GM PACKET PO (06:09)
[2020-08-19] MEDS: Menthol/Lanolin/Calamine/Znox 113 GM Tube 1 APPLIC TOPICAL ×2 (06:13→17:19)
[2020-08-19] MEDS: Iron Polysaccharide Complex 150 MG CAPSULE PO (07:44)
[2020-08-19] MEDS: oxyCODONE 5 MG Tablet PO ×2 (07:45→20:38)
--- NOTE | 2020-08-19 09:31 | MDS.RN ---
Information for the mds was obtained from review of the clinical record, interview of resident, staff, and direct observation of resident's care.
[2020-08-19 15:34] VITALS: BP 107/64; PULSE 81; RESP 18; TEMP 36.6; O2SAT 97
[2020-08-20 05:00] VITALS: BP 141/70; PULSE 66; RESP 18; TEMP 36.8; O2SAT 93
[2020-08-20] MEDS: Menthol/Lanolin/Calamine/Znox 113 GM Tube 1 APPLIC TOPICAL ×2 (06:01→16:59)
[2020-08-20] MEDS: Polyethylene Glycol 3350 17 GM PACKET PO (06:02)
[2020-08-20] MEDS: Lisinopril 10 MG Tablet PO (06:04)
[2020-08-20] MEDS: amLODIPine 10 MG Tablet PO (06:04)
[2020-08-20] MEDS: Levothyroxine 25 MCG TABLET PO (06:04)
[2020-08-20] MEDS: Senna/Docusate Sodium 1 Tablet 2 TABLET PO ×2 (06:04→16:57)
[2020-08-20] MEDS: Iron Polysaccharide Complex 150 MG CAPSULE PO (07:49)
[2020-08-20] MEDS: oxyCODONE 5 MG Tablet PO ×2 (07:50→21:42)
[2020-08-20 10:40] VITALS: PULSE 86; RESP 18; O2SAT 97
--- NOTE | 2020-08-20 12:41 | CASEMGMT ---
Social Work Spoke with pt's step son that insurance approved with NRD 08/22 and to anticipate NOMNC. Discussed DC plans. He has hired an aide to assist with bathing, dressing as needed; he will assist with meds and finances. Confirmed SW to order skilled HHC PT/OT/ST and a FWW. Step son did state pt may not be active with PCP. SW to speak with pt to get her established for follow up at DC and to follow for HHC. SW to continue to follow. Candace Asher, DOCTOR OF VETERINARY MEDICINE FIRST ASSISTANT MANAGER
[2020-08-20 13:53] VITALS: BP 112/66; PULSE 86; RESP 18; TEMP 36.8; O2SAT 94
--- NOTE | 2020-08-20 16:24 | CHAPLAIN ---
Type of Pastoral Visit ___ Initial Visit _x__ Follow-up Visit ___ On-call Visit ___ General Patient Visit ___ Spiritual Assessment ___ Family Conference ___ Bereavement ___ Rapid Response ___ Code Blue ___ Other (describe below) Pastoral Care Referral From _x__ Patient ___ Family ___ Nurse ___ Physician ___ Horse Trekking Guide ___ Industrial Laborer ___ Other (describe below) Sacrament/Intervention _x__ Active listening ___ Anointing ___ Caodaism ___ Bereavement ___ Communion ___ Louise exploration ___ ___ Life review _x__ Prayer ___ Reconciliation ___ Sacrament of Sick _x__ Supportive presence ___ Wedding ___ Other (describe below) Pastoral Comments
[2020-08-21 05:00] VITALS: BP 143/77; PULSE 60; RESP 18; O2SAT 93
[2020-08-21 05:48] LABS: Absolute Lymphocyte Count 0.78 X10^3/uL (0.83-4.51); Absolute Neutrophil Count 3.2 X10^3/uL (2.0-7.7); Basophil# 0.03 X10^3/uL; Basophil% 0.6 % (0-1); Eosinophil# 0.08 X10^3/uL; Eosinophils% 1.7 % (0-5); Hematocrit 32.2 % (37-47); Hemoglobin 10.6 g/dL (12.0-15.0); Lymphocyte # 0.78 X10^3/ul (0.83-4.51); Lymphocyte % 16.8 % (19-41); Mean Corp Hgb Conc 32.9 g/dL (32-36); Mean Corpuscular Hgb 30.7 pg (27.0-32.0); Mean Corpuscular Volume 93.3 fL (81-99); Mean Platelet Vol. 9.5 fl (6.2-12.0); Monocyte# 0.51 X10^3/uL; NRBC Flagged by Analyzer 0 % (0-5); Neutrophil # 3.22 X10^3/uL (2.7-7.7); Neutrophil % 69.5 % (47-70); Platelet Count 306 K/mm3 (150-450); RBC Distribution Width CV 14.4 % (11.6-14.6); RBC Distribution Width SD 48.9 fl (35.1-43.9); Red Blood Count 3.45 M/mm3 (4.2-5.4); White Blood Count 4.6 K/mm3 (4.4-11.0)
[2020-08-21] MEDS: Polyethylene Glycol 3350 17 GM PACKET PO (05:57)
[2020-08-21] MEDS: Senna/Docusate Sodium 1 Tablet 2 TABLET PO ×2 (05:57→17:52)
[2020-08-21] MEDS: amLODIPine 10 MG Tablet PO (05:57)
[2020-08-21] MEDS: Menthol/Lanolin/Calamine/Znox 113 GM Tube 1 APPLIC TOPICAL ×2 (05:57→17:53)
[2020-08-21] MEDS: Lisinopril 10 MG Tablet PO (05:57)
[2020-08-21] MEDS: Levothyroxine 25 MCG TABLET PO (05:57)
[2020-08-21 06:28] LABS: Anion Gap 4 (5-15); BUN 24 mg/dL (7-18); BUN/Creat Ratio 53.3 RATIO (10-20); Calcium,Total 8.4 mg/dL (8.5-10.1); Chloride 104 mmol/L (98-107); Creatinine, Serum 0.45 mg/dL (0.55-1.02); EST Glomerular Filtration Rate 142 mL/min (>60); Est Glom Filt Rate - Afr Amer 172 mL/min (>60); Glucose 77 mg/dL (74-106); Potassium 4.2 mmol/L (3.5-5.1); Sodium Level 134 mmol/L (136-145)
[2020-08-21] MEDS: Iron Polysaccharide Complex 150 MG CAPSULE PO (07:55)
[2020-08-21] MEDS: oxyCODONE 5 MG Tablet PO ×2 (09:46→20:16)
--- NOTE | 2020-08-21 13:29 | CASEMGMT ---
SW spoke w/pt about selecting a primary care physician. Pt has indicated she would like Dr. Hernandez. SW assisted pt in completing living will. SW gave pt original and copies, copy placed on chart. LAMRA Rice
[2020-08-21 13:59] VITALS: BP 120/69; PULSE 85; RESP 14; TEMP 36.4; O2SAT 95
[2020-08-22 05:30] VITALS: BP 144/76; PULSE 62; RESP 16; TEMP 36.7; O2SAT 94
[2020-08-22] MEDS: amLODIPine 10 MG Tablet PO (05:31)
[2020-08-22] MEDS: Polyethylene Glycol 3350 17 GM PACKET PO (05:31)
[2020-08-22] MEDS: Lisinopril 10 MG Tablet PO (05:31)
[2020-08-22] MEDS: Levothyroxine 25 MCG TABLET PO (05:31)
[2020-08-22] MEDS: Menthol/Lanolin/Calamine/Znox 113 GM Tube 1 APPLIC TOPICAL ×2 (05:32→18:05)
[2020-08-22] MEDS: Senna/Docusate Sodium 1 Tablet 2 TABLET PO (05:32)
[2020-08-22] MEDS: oxyCODONE 5 MG Tablet PO ×3 (08:50→23:07)
[2020-08-22] MEDS: Iron Polysaccharide Complex 150 MG CAPSULE PO (08:52)
--- NOTE | 2020-08-22 08:53 | NURSING ---
Addendum entered by Nabila Sandhu 08/22/20 09:43: Dr. Hernandez updated new order for x-ray and Ultrasound for Right shoulder d/t pain and swelling. Original Note: PT COMPLAINED OF RIGHT SHOULDER PAIN. SWELLING NOTED TO FRONT DELTOID AREA. RN AWARE
--- NOTE | 2020-08-22 09:28 | RAD_ITS ---
STUDY: X-RAY - RIGHT SHOULDER REASON FOR EXAM: Female, 79 years old. Swelling and Pain to shoulder TECHNIQUE: 4 view(s) of the shoulder. COMPARISON: None. FINDINGS: There is severe degenerative arthrosis of the glenohumeral articulation, additionally, there is mild cephalad migration of the humeral head relative to the glenoid suggesting rotator cuff pathology, likely chronic. Normal acromioclavicular joint. Normal acromion. There is demineralization of the humerus and visualized osseous structures. Dense calcifications in the thoracic aorta. Normal visualized pulmonary apex. RAD/Shoulder min 2 Views IMPRESSION: Severe glenohumeral joint arthrosis with cephalad migration of the humeral head relative to the glenoid suggesting rotator cuff pathology, likely chronic Normal alignment of the AC joint No demonstrated fracture or suspicious osseous lesion Diffuse osteopenia Electronically Signed: Jules Frances MD at 10:13 EDT , Service support ,
--- NOTE | 2020-08-22 09:29 | PT ---
Pt c/o pain in R shoulder. Pt has a baseball sized pocket of what appears to be swelling on anterior aspect of R shoulder. pt reports no pain with palpation. RN called to room to examine pt.
--- NOTE | 2020-08-22 09:40 | US_ITS ---
STUDY: SUPERFICIAL ULTRASOUND - RIGHT SHOULDER REASON FOR EXAM: Female, 79 years old. Swelling to right Shoulder with pain -- PER NURSE - BASEBALL SIZE MASS TECHNIQUE: A superficial ultrasound was performed with real-time and static de la o-scale imaging. COMPARISON: Plain film from earlier today FINDINGS: Ultrasound evaluation of the subcutaneous tissue around the right shoulder shows an anechoic fluid collection measuring 6.2 x 6.4 x 6.3 cm. This is likely a joint effusion which is extending and distending the shoulder capsule. US/Ext Non Vasc Limited/Soft Tiss IMPRESSION: Likely joint effusion with distention of the shoulder capsule measuring 6.2 x 6.4 x 2.3 cm Electronically Signed: Jules Frances MD at 10:48 EDT , Service support ,
[2020-08-22] MEDS: Acetaminophen 325 MG Tablet 650 MG PO (11:03)
[2020-08-22 11:15] VITALS: PULSE 82; RESP 18; O2SAT 93
[2020-08-22 13:53] VITALS: BP 95/52; PULSE 75; RESP 16; TEMP 36.6; O2SAT 95
[2020-08-23 05:00] VITALS: BP 133/75; PULSE 64; RESP 18; TEMP 37.5; O2SAT 96
[2020-08-23] MEDS: Levothyroxine 25 MCG TABLET PO (05:34)
[2020-08-23] MEDS: Senna/Docusate Sodium 1 Tablet 2 TABLET PO ×2 (05:34→17:05)
[2020-08-23] MEDS: Lisinopril 10 MG Tablet PO (05:34)
[2020-08-23] MEDS: amLODIPine 10 MG Tablet PO (05:35)
[2020-08-23] MEDS: Polyethylene Glycol 3350 17 GM PACKET PO (05:35)
[2020-08-23] MEDS: Menthol/Lanolin/Calamine/Znox 113 GM Tube 1 APPLIC TOPICAL ×2 (05:35→17:05)
[2020-08-23] MEDS: Acetaminophen 325 MG Tablet 650 MG PO (05:42)
[2020-08-23] MEDS: Iron Polysaccharide Complex 150 MG CAPSULE PO (08:17)
[2020-08-23] MEDS: oxyCODONE 5 MG Tablet PO ×2 (08:18→21:05)
--- NOTE | 2020-08-23 08:56 | NURSING ---
Resident educated on the COVID-19 Vaccine. She does not want the vaccine.
[2020-08-23 14:12] VITALS: BP 122/67; PULSE 84; RESP 16; TEMP 36.7; O2SAT 93
[2020-08-23 21:06] VITALS: PULSE 88; RESP 16; O2SAT 92
[2020-08-24 04:11] VITALS: BP 116/74; PULSE 86; RESP 16; TEMP 36.7; O2SAT 92
[2020-08-24] MEDS: Lisinopril 10 MG Tablet PO (05:19)
[2020-08-24] MEDS: amLODIPine 10 MG Tablet PO (05:19)
[2020-08-24] MEDS: Senna/Docusate Sodium 1 Tablet 2 TABLET PO ×2 (05:19→15:38)
[2020-08-24] MEDS: Polyethylene Glycol 3350 17 GM PACKET PO (05:19)
[2020-08-24] MEDS: Levothyroxine 25 MCG TABLET PO (05:19)
[2020-08-24] MEDS: oxyCODONE 5 MG Tablet PO ×3 (05:22→22:34)
[2020-08-24] MEDS: Menthol/Lanolin/Calamine/Znox 113 GM Tube 1 APPLIC TOPICAL ×2 (05:24→15:38)
[2020-08-24] MEDS: Iron Polysaccharide Complex 150 MG CAPSULE PO (08:23)
[2020-08-24 15:12] VITALS: BP 118/64; PULSE 85; RESP 20; TEMP 37.2; O2SAT 94
[2020-08-25 04:28] VITALS: BP 125/66; PULSE 61; RESP 16; TEMP 36.7; O2SAT 96
[2020-08-25] MEDS: Menthol/Lanolin/Calamine/Znox 113 GM Tube 1 APPLIC TOPICAL ×2 (04:30→17:31)
[2020-08-25] MEDS: amLODIPine 10 MG Tablet PO (04:31)
[2020-08-25] MEDS: Lisinopril 10 MG Tablet PO (04:31)
[2020-08-25] MEDS: Levothyroxine 25 MCG TABLET PO (04:31)
[2020-08-25] MEDS: Iron Polysaccharide Complex 150 MG CAPSULE PO (08:06)
[2020-08-25] MEDS: oxyCODONE 5 MG Tablet PO ×2 (08:06→19:44)
[2020-08-25 14:06] VITALS: BP 108/70; PULSE 83; RESP 18; TEMP 37; O2SAT 94
[2020-08-25] MEDS: Senna/Docusate Sodium 1 Tablet 2 TABLET PO (17:31)
[2020-08-25 22:00] VITALS: PULSE 82; O2SAT 97
[2020-08-26 05:00] VITALS: BP 140/74; PULSE 63; RESP 18; TEMP 36.6; O2SAT 96
[2020-08-26] MEDS: amLODIPine 10 MG Tablet PO (06:08)
[2020-08-26] MEDS: Senna/Docusate Sodium 1 Tablet 2 TABLET PO ×2 (06:08→17:02)
[2020-08-26] MEDS: Menthol/Lanolin/Calamine/Znox 113 GM Tube 1 APPLIC TOPICAL ×2 (06:08→17:03)
[2020-08-26] MEDS: Levothyroxine 25 MCG TABLET PO (06:08)
[2020-08-26] MEDS: Lisinopril 10 MG Tablet PO (06:08)
[2020-08-26] MEDS: oxyCODONE 5 MG Tablet PO ×2 (08:17→20:07)
[2020-08-26] MEDS: Iron Polysaccharide Complex 150 MG CAPSULE PO (08:18)
[2020-08-26] MEDS: Acetaminophen 325 MG Tablet 650 MG PO (10:00)
[2020-08-26 14:24] VITALS: BP 106/65; PULSE 80; RESP 16; TEMP 36.2; O2SAT 92
[2020-08-27 04:28] VITALS: BP 107/68; PULSE 88; RESP 16; TEMP 36.6; O2SAT 92
[2020-08-27] MEDS: Senna/Docusate Sodium 1 Tablet 2 TABLET PO ×2 (05:46→17:01)
[2020-08-27] MEDS: Levothyroxine 25 MCG TABLET PO (05:46)
[2020-08-27] MEDS: amLODIPine 10 MG Tablet PO (05:46)
[2020-08-27] MEDS: Lisinopril 10 MG Tablet PO (05:46)
[2020-08-27] MEDS: Menthol/Lanolin/Calamine/Znox 113 GM Tube 1 APPLIC TOPICAL ×2 (05:47→17:00)
[2020-08-27] MEDS: Ondansetron ODT 4 MG Tablet PO (07:44)
[2020-08-27] MEDS: Iron Polysaccharide Complex 150 MG CAPSULE PO (07:44)
[2020-08-27 09:50] VITALS: PULSE 83; RESP 18; O2SAT 97
[2020-08-27] MEDS: Acetaminophen 325 MG Tablet 650 MG PO (09:58)
[2020-08-27 14:49] VITALS: BP 113/69; PULSE 80; RESP 17; TEMP 36.6; O2SAT 92
[2020-08-27] MEDS: oxyCODONE 5 MG Tablet PO (19:42)
[2020-08-28 02:59] VITALS: BP 118/72; PULSE 79; RESP 16; TEMP 36.4; O2SAT 94
[2020-08-28] MEDS: Senna/Docusate Sodium 1 Tablet 2 TABLET PO (05:06)
[2020-08-28] MEDS: amLODIPine 10 MG Tablet PO (05:06)
[2020-08-28] MEDS: Levothyroxine 25 MCG TABLET PO (05:06)
[2020-08-28] MEDS: Lisinopril 10 MG Tablet PO (05:06)
[2020-08-28] MEDS: Polyethylene Glycol 3350 17 GM PACKET PO (05:08)
[2020-08-28] MEDS: Menthol/Lanolin/Calamine/Znox 113 GM Tube 1 APPLIC TOPICAL ×2 (05:08→17:00)
[2020-08-28 05:45] LABS: Absolute Lymphocyte Count 0.67 X10^3/uL (0.83-4.51); Basophil# 0.03 X10^3/uL; Basophil% 0.7 % (0-1); Eosinophil# 0.06 X10^3/uL; Eosinophils% 1.4 % (0-5); Hematocrit 33.7 % (37-47); Lymphocyte # 0.67 X10^3/ul (0.83-4.51); Lymphocyte % 15.5 % (19-41); Mean Corp Hgb Conc 32.6 g/dL (32-36); Mean Corpuscular Hgb 30.7 pg (27.0-32.0); Mean Corpuscular Volume 94.1 fL (81-99); Mean Platelet Vol. 9.8 fl (6.2-12.0); Monocyte# 0.49 X10^3/uL; Monocyte% 11.3 % (0-10); NRBC Flagged by Analyzer 0 % (0-5); Neutrophil # 3.04 X10^3/uL (2.7-7.7); Neutrophil % 70.4 % (47-70); Platelet Count 316 K/mm3 (150-450); RBC Distribution Width CV 13.8 % (11.6-14.6); RBC Distribution Width SD 47.8 fl (35.1-43.9); Red Blood Count 3.58 M/mm3 (4.2-5.4); White Blood Count 4.3 K/mm3 (4.4-11.0)
[2020-08-28 05:59] LABS: Anion Gap 5 (5-15); BUN 23 mg/dL (7-18); BUN/Creat Ratio 47.8 RATIO (10-20); Calcium,Total 8.7 mg/dL (8.5-10.1); Chloride 103 mmol/L (98-107); Creatinine, Serum 0.48 mg/dL (0.55-1.02); EST Glomerular Filtration Rate 131 mL/min (>60); Est Glom Filt Rate - Afr Amer 159 mL/min (>60); Estimated Creatinine Clearance 27.86 ml/min; Glucose 77 mg/dL (74-106); Potassium 4.3 mmol/L (3.5-5.1); Sodium Level 136 mmol/L (136-145)
[2020-08-28] MEDS: oxyCODONE 5 MG Tablet PO (07:47)
[2020-08-28] MEDS: Iron Polysaccharide Complex 150 MG CAPSULE PO (07:47)
[2020-08-28 13:56] VITALS: BP 113/70; PULSE 84; RESP 14; TEMP 36.5; O2SAT 94
[2020-08-28] MEDS: Acetaminophen 325 MG Tablet 650 MG PO (20:09)
[2020-08-29] MEDS: oxyCODONE 5 MG Tablet PO ×2 (03:08→22:08)
[2020-08-29] MEDS: amLODIPine 10 MG Tablet PO (05:30)
[2020-08-29] MEDS: Polyethylene Glycol 3350 17 GM PACKET PO (05:30)
[2020-08-29] MEDS: Menthol/Lanolin/Calamine/Znox 113 GM Tube 1 APPLIC TOPICAL ×2 (05:30→16:54)
[2020-08-29] MEDS: Lisinopril 10 MG Tablet PO (05:30)
[2020-08-29] MEDS: Levothyroxine 25 MCG TABLET PO (05:30)
[2020-08-29] MEDS: Iron Polysaccharide Complex 150 MG CAPSULE PO (07:59)
[2020-08-29] MEDS: Acetaminophen 325 MG Tablet 650 MG PO (09:44)
--- NOTE | 2020-08-29 13:58 | CASEMGMT ---
Social Work Insurance issued LCD 08/31, [place] 09/01. Spoke with pt whom is agreeable. Pt requesting FWW - referral made to [facility] [place] [facility]. Pt requesting HHC. Provided [facility] list of providers including quality and resource use data and consistent with the patient?s preferred geographic region, medical needs, and insurance network. Pt prefers [facility]. Referral made for PT/OT/ST. Left a message with nephew explaining above. Plan: DC home 09/01, [facility] PT/OT/ST, FWW Candace Asher, DISTRICT DIRECTOR KATY
[2020-08-29 14:01] VITALS: BP 114/59; PULSE 87; RESP 20; TEMP 36.8; O2SAT 93
[2020-08-29] MEDS: Senna/Docusate Sodium 1 Tablet 2 TABLET PO (16:55)
--- NOTE | 2020-08-29 19:27 | PCM.DC.SUM ---
Providers Date of Admission: 08/06/20 Primary Care Physician: No Primary Care Phys Reason For Visit: HTN URGENCY/FALL/PELVIC FX Diagnosis Discharge Diagnosis (1) Debility: Status: Acute Code(s): R53.81 - Other malaise (2) Fall: Status: Acute Code(s): W19.XXXA - Unspecified fall, initial encounter Qualifiers: Encounter type: initial encounter Qualified Code(s): W19.XXXA - Unspecified fall, initial encounter (3) Pelvic fracture: Status: Acute Code(s): S32.9XXA - Fracture of unspecified parts of lumbosacral spine and pelvis, initial encounter for closed fracture (4) Hypertension: Status: Chronic Code(s): I10 - Essential (primary) hypertension Qualifiers: Hypertension type: essential hypertension Qualified Code(s): I10 - Essential (primary) hypertension (5) Hypothyroidism: Status: Acute Code(s): E03.9 - Hypothyroidism, unspecified Medications at Discharge Home Medications acetaminophen [Tylenol] 650 mg PO Q6H PRN PRN #0 tab 08/29/20 amlodipine 10 mg PO DAILY 30 Days #30 tab 08/29/20 levothyroxine 25 mcg PO DAILY@0600 30 Days tab 08/29/20 lisinopril 10 mg PO DAILY 30 Days #30 tab 08/29/20 polysaccharide iron complex [Ferrex 150] 150 mg PO DAILYCM 30 Days #30 cap 08/29/20 Hospital Course Operations None Procedures None Summary of Care Provided Minutes Spent on Discharge: 35 Hospital Course: 79 YEAR OLD FEMALE WITH BELOW PAST MEDICAL HISTORY HOSPITALIZED FOR FALL, PELVIC FRACTURE, ADMITTED TO TCU WITH DEBILITY, HERE FOR REHABILITATION, STRENGTHENING, PRIOR TO DISCHARGE HOME ALONE. Discharge home alone 09/01/2020, [facility] PT/OT/ST, Front Wheeled Walker. Physical Exam Const alert and oriented x3 General Appearance: cooperative HEENT normocephalic Eyes PERRL and EOMs intact bilaterally Neck supple, no JVD and no carotid bruits Resp normal respiratory effort, normal air movement and clear to auscultation bilaterally Cardio regular rate and regular rhythm GI normal to inspection, nondistended, normoactive bowel sounds, non-tender and non-distended Extremity normal capillary refill General Extremity: Negative for edema Skin no rashes or lesions noted General Skin Exam: no breakdown Psych affect normal Appearance: appropriate ABG / Lab / Microbiology Data Result Diagrams: 08/28/20 05:15 08/28/20 05:15 D/C Instructions Discharge Diet: No restrictions Discharge Activity: Return to Normal Activity, May Shower and Use Walker Weight Bearing Status: Weight bearing as tolerated Call your doctor if you observe: Fever of 101 or Higher, Inability to urinate, Inability to have a bowel movement, Shortness of breath, Fainting spells, Chest pain and Uncontrolled pain Additional Instructions: Discharge home alone 09/01/2020, [facility] PT/OT/ST, Front Wheeled Walker. Please Follow Up With: Garrett Patel DO When: 2 weeks. Meaningful Use Info Meaningful Use Diagnoses (Choose all that apply): None applicable Discharge Plan Admission Admit Date/Time: 08/06/20 14:20 Primary Reason for Your Visit: Debility Attending Provider: Donald Hernandez Chi Primary Care Provider: Care Physician,No Primary Instructions Additional Instructions / Restrictions: Discharge home alone 09/01/2020, [facility] PT/OT/ST, Front Wheeled Walker. Discharge Orders/Prescriptions Prescriptions: New acetaminophen [Tylenol] 325 mg Tablet 650 mg PO Q6H PRN PRN (Reason: Pain Score 1-10/Temp > 100.7 F) Qty: 0 RF: 0 polysaccharide iron complex [Ferrex 150] 150 mg iron Capsule 150 mg PO DAILYCM 30 Days Qty: 30 RF: 0 levothyroxine 25 mcg Tablet 25 mcg PO DAILY@0600 30 Days RF: 0 amlodipine 10 mg Tablet 10 mg PO DAILY 30 Days Qty: 30 RF: 0 lisinopril 10 mg Tablet 10 mg PO DAILY 30 Days Qty: 30 RF: 0 Discontinued acetaminophen [Tylenol] 325 mg Tablet 650 mg PO Q6H PRN PRN (Reason: Pain Score 1-10/Temp > 100.7 F) Qty: 0 RF: 0 sennosides-docusate sodium [Stool Softener-Stimulant Laxat] 8.6-50 mg Tablet 2 tab PO BID PRN PRN (Reason: Constipation) Qty: 0 RF: 0 oxycodone 5 mg Tablet 5 mg PO Q4H PRN PRN (Reason: Pain Score 4-10) Qty: 0 RF: 0 levothyroxine 25 mcg tablet 25 mcg PO DAILY@0600 RF: 0 amlodipine 10 mg tablet 10 mg PO DAILY RF: 0 lisinopril 10 mg tablet 10 mg PO DAILY RF: 0 enoxaparin 30 mg/0.3 mL syringe 30 mg subcut DAILY RF: 0 Ensure Enlive 0.08 gram-1.5 kcal/mL liquid 120 ml PO 4X/DAY RF: 0 Referrals / Follow Up: Donald Hernandez Chi, MD [COURTESY STAFF PHYSICIAN] - In 1 Week Care Physician,No Primary [Primary Care Provider] - Disposition Disposition (needs filled in before D/C Order can be placed): Home Health Service
[2020-08-30 05:00] VITALS: BP 135/74; PULSE 63; RESP 16; TEMP 36.6; O2SAT 96
[2020-08-30] MEDS: Polyethylene Glycol 3350 17 GM PACKET PO (06:07)
[2020-08-30] MEDS: amLODIPine 10 MG Tablet PO (06:07)
[2020-08-30] MEDS: Lisinopril 10 MG Tablet PO (06:07)
[2020-08-30] MEDS: Levothyroxine 25 MCG TABLET PO (06:07)
[2020-08-30] MEDS: Senna/Docusate Sodium 1 Tablet 2 TABLET PO ×2 (06:07→17:10)
[2020-08-30] MEDS: Menthol/Lanolin/Calamine/Znox 113 GM Tube 1 APPLIC TOPICAL ×2 (06:10→17:11)
[2020-08-30] MEDS: Iron Polysaccharide Complex 150 MG CAPSULE PO (09:08)
[2020-08-30] MEDS: oxyCODONE 5 MG Tablet PO (11:37)
--- NOTE | 2020-08-30 13:56 | MDS.RN ---
completed pain interview for basilio 09/01/20
[2020-08-30 14:02] VITALS: BP 121/76; PULSE 78; RESP 18; TEMP 36.2; O2SAT 97
[2020-08-31 01:41] VITALS: BP 133/77; PULSE 83; RESP 18; TEMP 37; O2SAT 92
[2020-08-31] MEDS: amLODIPine 10 MG Tablet PO (05:21)
[2020-08-31] MEDS: Lisinopril 10 MG Tablet PO (05:22)
[2020-08-31] MEDS: Polyethylene Glycol 3350 17 GM PACKET PO (05:22)
[2020-08-31] MEDS: Senna/Docusate Sodium 1 Tablet 2 TABLET PO (05:22)
[2020-08-31] MEDS: Levothyroxine 25 MCG TABLET PO (05:22)
[2020-08-31] MEDS: Menthol/Lanolin/Calamine/Znox 113 GM Tube 1 APPLIC TOPICAL ×2 (05:26→17:19)
[2020-08-31] MEDS: Iron Polysaccharide Complex 150 MG CAPSULE PO (08:08)
[2020-08-31 15:20] VITALS: BP 151/81; PULSE 79; RESP 18; TEMP 36.1; O2SAT 95
[2020-08-31] MEDS: oxyCODONE 5 MG Tablet PO (21:56)
[2020-09-01 04:47] VITALS: BP 161/85; PULSE 66; RESP 18; TEMP 36.6; O2SAT 96
[2020-09-01] MEDS: Menthol/Lanolin/Calamine/Znox 113 GM Tube 1 APPLIC TOPICAL (04:49)
[2020-09-01] MEDS: Senna/Docusate Sodium 1 Tablet 2 TABLET PO (04:50)
[2020-09-01] MEDS: Lisinopril 10 MG Tablet PO (04:50)
[2020-09-01] MEDS: Levothyroxine 25 MCG TABLET PO (04:50)
[2020-09-01] MEDS: amLODIPine 10 MG Tablet PO (04:50)
[2020-09-01] MEDS: Iron Polysaccharide Complex 150 MG CAPSULE PO (07:46)
[2020-09-01 09:30] VITALS: PULSE 73; RESP 18; O2SAT 93
[2020-09-01 09:36] VITALS: BP 153/82; PULSE 86; RESP 18; TEMP 36.7; O2SAT 95
--- NOTE | 2020-09-01 11:05 | NURSING ---
this RN received phone call from [email or web address] stating they do not have any record for Rx's for patient from discharge orders. RN notified MD of situation. Dr Hernandez to call [email or web address] with prescriptions. this RN will update flora Tavarez.
== END 2020-09-01 10:30 | disposition home health service (06) | DRG 560 ==
PROVIDERS: Admitting Provider Family Medicine Geriatric Medicine; Visit Provider Family Medicine Geriatric Medicine
DX: S32.9XXD Fracture of unspecified parts of lumbosacral spine and pelvis, subsequent encounter for fracture with routine healing (principal); Z68.1 Body mass index [BMI] 19.9 or less, adult; W19.XXXD Unspecified fall, subsequent encounter; E03.9 Hypothyroidism, unspecified; I10 Essential (primary) hypertension; Z79.899 Other long term (current) drug therapy; Z23 Encounter for immunization; R63.4 Abnormal weight loss
CPT/HCPCS: 36415; 73030; 76882; 80048; 85014; 85018; 85025; 87635; 92507; 92523; 92610; 97110; 97116; 97162; 97166; 97530; 97535; 97802; 99251; G0008; G0009; 90670; 90686; G0463; U0002

== ENCOUNTER 2022-04-14 18:36 | Inpatient (IN) | payer MEDICARE, MEDICAID, SELFPAY ==
[2022-04-14 18:37] VITALS: BP 126/82; PULSE 111; RESP 18; TEMP 36.4; O2SAT 93; BMI 17.6
--- NOTE | 2022-04-14 19:46 | CT_ITS ---
STUDY: CT BRAIN WITHOUT CONTRAST REASON FOR EXAM: Female, 81 years old. Head trauma. RADIATION DOSAGE (If Supplied By Facility): CTDIvol = ( 44.99 ) mGy, DLP = ( 745.49 ) mGycm TECHNIQUE: Transaxial CT imaging of the brain was performed without administration of intravenous contrast material. Individualized dose optimization techniques were used for this CT. COMPARISON: No relevant priors. FINDINGS: Normal soft tissue structures. Normal calvarium. There is mild cerebral atrophy with widening of the extra-axial spaces and ventricular dilatation. There are areas of decreased attenuation within the white matter tracts of the supratentorial brain, consistent with microvascular disease changes. Remote lacunar infarct left basal ganglia. Normal right basal ganglia and bilateral thalami. Normal brainstem. There is moderate cerebellar atrophy. There is no intracranial hemorrhage. There are no findings of an acute ischemic infarction. There are air-fluid levels in both maxillary and sphenoid sinuses. Mucoperiosteal reaction is in the ethmoid air cells with opacification of the left frontal sinus. CT/Brain/Head without Contrast IMPRESSION: 1. Chronic involutional changes without evidence of acute intracranial or calvarial abnormality. 2. Pansinusitis. Electronically Signed: Aaron Pryor DO at 20:50 EST ,
--- NOTE | 2022-04-14 19:46 | CT_ITS ---
STUDY: CT CERVICAL SPINE WITHOUT CONTRAST REASON FOR EXAM: Female, 81 years old. Trauma. RADIATION DOSAGE (If Supplied By Facility): CTDIvol = ( 11.85 ) mGy, DLP = ( 212.27 ) mGycm TECHNIQUE: High resolution transaxial imaging was performed without contrast material. Sagittal and coronal images were reconstructed. Individualized dose optimization techniques were used for this CT. COMPARISON: None FINDINGS: Normal craniovertebral junction. Normal anterior atlantoaxial articulation. Normal odontoid process. Normal cervical lordosis. C2-3: Normal endplates. Normal disc height and morphology. Mild facet joint degenerative change. Normal central canal and intervertebral neuroforamina. C3-4: Endplate sclerosis and spondylosis with loss of disc height. Facet joint degenerative change. Normal central canal and intervertebral neuroforamina. C4-5: Normal endplates. Loss of disc space without bulging annulus. Facet joint degenerative change. Normal central canal and intervertebral neuroforamina. C5-6: Normal endplates. Loss of disc height without bulging annulus. Facet joint degenerative change. Normal central canal and intervertebral neuroforamina. C6-7: Anterolisthesis of C6 on C7 with loss of disc height bulging annulus. There is facet joint degenerative change without subluxation. Normal central canal and intervertebral neuroforamina. C7-T1: Normal endplates. Normal disc height and morphology. No facet joint degenerative change. Normal central canal and intervertebral neuroforamina. Normal visualized soft tissue structures. CT/Spine Cervical without Contras IMPRESSION: Degenerative changes cervical spine without acute fracture or subluxation. Note: MRI is more sensitive than CT in detecting cord injury, ligamentous injury and epidural hematoma. If there is continued clinical concern for any of these entities, MRI should be considered. Electronically Signed: Aaron Pryor DO at 20:53 EST ,
--- NOTE | 2022-04-14 20:25 | RAD_ITS ---
STUDY: X-RAY CHEST REASON FOR EXAM: Female, 81 years old. Cough. TECHNIQUE: Single AP portable view of the chest. COMPARISON: August 02, 2020. FINDINGS: The lungs are clear and expanded. There is no demonstrated pleural abnormality. Normal size heart. Normal mediastinum and ayesha. Normal visualized pulmonary arteries. There appears to be enlargement of the aortic arch suggesting aneurysm. Correlation with CT recommended. No visualized osseous changes. There is no demonstrated abnormality of the visualized soft tissue structures of the upper abdomen. RAD/Chest 1 View (Portable) IMPRESSION: Prominence of the aortic arch compared to earlier study. Correlation with CT recommended. Electronically Signed: Aaron Pryor DO at 20:36 EST ,
[2022-04-14 20:28] LABS: Absolute Lymphocyte Count 1.13 X10^3/uL (0.83-4.51); Absolute Neutrophil Count 7.2 X10^3/uL (2.0-7.7); Basophil# 0.04 X10^3/uL; Basophil% 0.4 % (0-1); Eosinophil# 0.44 X10^3/uL; Eosinophils% 4.4 % (0-5); Hematocrit 44.9 % (37-47); Hemoglobin 15.3 g/dL (12.0-15.0); Lymphocyte # 1.13 X10^3/ul (0.83-4.51); Lymphocyte % 11.4 % (19-41); Mean Corp Hgb Conc 34.1 g/dL (32-36); Mean Corpuscular Hgb 30.2 pg (27.0-32.0); Mean Corpuscular Volume 88.7 fL (81-99); Mean Platelet Vol. 10.3 fl (6.2-12.0); Monocyte# 1.12 X10^3/uL; Monocyte% 11.3 % (0-10); NRBC Flagged by Analyzer 0 % (0-5); Neutrophil # 7.18 X10^3/uL (2.7-7.7); Neutrophil % 72.2 % (47-70); Platelet Count 270 K/mm3 (150-450); RBC Distribution Width CV 13.1 % (11.6-14.6); RBC Distribution Width SD 42.6 fl (35.1-43.9); Red Blood Count 5.06 M/mm3 (4.2-5.4); White Blood Count 9.9 K/mm3 (4.4-11.0)
[2022-04-14 20:29] LABS: Color, Urine Yellow (Yellow); Glucose, Dipstick 50 mg/dl (Normal); Ketone-Dipstick 50 mg/dl (Negative); Leukocyte Esterase-Dipstick 500 /ul (Negative); Nitrite-Dipstick Positive (Negative); Occult Blood-Urine 150 /ul (Negative); Protein-Dipstick 500 mg/dl (Negative); Specific Gravity, Urine 1.015 (1.002-1.030); Urine Bilirubin Dipstick Negative (Negative); Urine Clarity Sl. Cloudy (Clear); Urine Urobilinogen 1 mg/dl (Normal)
[2022-04-14 20:37] LABS: Hyaline Cast 10-25 SEEN /lpf (0-5)
[2022-04-14 20:38] LABS: Bacteria RARE /hpf (None Seen); Mucous, Urine 1+ /hpf (<or=2+); Red Blood Cells-Urine 0-5 SEEN /hpf (0-5); Squamous Epithelial Cells - UA 0-5 SEEN /hpf (5-10); White Blood Cells 0-5 SEEN /hpf (0-5)
[2022-04-14 20:56] LABS: ALB/GLOB Ratio 0.9 RATIO (0.9-2.4); AST(SGOT) 72 U/L (15-37); Alanine Aminotransfer ALT/SGPT 22 U/L (13-56); Albumin, Serum 3.6 g/dL (3.2-5.0); Alkaline Phosphatase 95 U/L (45-117); Anion Gap 9 (5-15); BUN 32 mg/dL (7-18); BUN/Creat Ratio 41.6 RATIO (10-20); Calcium,Total 9.6 mg/dL (8.5-10.1); Chloride 104 mmol/L (98-107); Creatinine, Serum 0.77 mg/dL (0.55-1.02); EST Glomerular Filtration Rate 76 mL/min (>60); Est Glom Filt Rate - Afr Amer 92 mL/min (>60); Estimated Creatinine Clearance 27.47 ml/min; Globulin 3.9 g/dL (2.2-4.2); Glucose 111 mg/dL (74-106); Potassium 3.2 mmol/L (3.5-5.1); Protein, Total 7.5 g/dL (6.4-8.2); Sodium Level 136 mmol/L (136-145); Troponin-I HS 198 pg/mL (3.0-54.0)
--- NOTE | 2022-04-14 21:58 | CT_ITS ---
INDICATION: Abnormal chest x-ray. EXAMINATION: CTA CHEST, ABDOMEN AND PELVIS WITH CONTRAST - TECHNIQUE: A CTA of the chest, abdomen, and pelvis is obtained with sagittal and coronal reconstructed MIP views. Three-dimensional surface rendered sequence of the thoracic and abdominal aorta was obtained. A radiation dose optimization technique was used for this scan. 75 mL of Isovue-370. Oral contrast: None. COMPARISON: Chest, April 14, 2022 FINDINGS: CT CHEST: THORACIC AORTA: The thoracic aorta is mildly tortuous but without aneurysm as suspected on the plain film. There is mild atherosclerotic changes. There is no dissection. ABDOMINAL AORTA: There is atherosclerotic changes of the abdominal aorta. No gross stricture, dissection or aneurysm. LUNGS: Lungs are hyperexpanded with diffuse emphysematous changes. There is no focal mass or infiltrate. MEDIASTINUM: The thyroid gland is normal. No mediastinal or hilar adenopathy. HEART: The heart is grossly normal in size. No coronary artery calcifications. CT ABDOMEN AND PELVIS: LIVER: The liver is prominent. No focal mass. GALLBLADDER: The CBD is normal. Normal gallbladder. SPLEEN: Normal. PANCREAS: No masses or inflammation. ADRENAL GLANDS: Normal. KIDNEYS AND URETERS: The kidneys both enhance appropriately. There are normal size and shape. No hydronephrosis or nephrolithiasis. No renal masses or cysts. STOMACH: Normal. SMALL BOWEL: No abnormal distention of the small bowel. MESENTERY: No mesenteric inflammation. No ascites. COLON: No significant diverticulosis, masses or inflammation. The colon otherwise is normal. Normal ileocecal valve. APPENDIX: The appendix is visualized and normal. IVC: Normal. RETROPERITONEUM: No retroperitoneal lymphadenopathy. PELVIC STRUCTURES: Normal urinary bladder. Normal uterus. There is no adnexal mass. No pelvic lymphadenopathy. No free air or free fluid is seen within the peritoneal cavity. SOFT TISSUES ABDOMEN: The anterior abdominal wall is normal. SOFT TISSUE CHEST: The extrathoracic soft tissues are normal. BONES: Degenerative changes of the thoracolumbar spine with marked exaggerated thoracic kyphosis. There are compression deformities of T4, T8 and T10 with evidence of vertebral augmentation. There is also a vague compression deformity at the superior endplates of L1 and L2. No acute fracture is seen. There is anterolisthesis of L5 on S1. There are healed fractures of the left superior and inferior pubic pubic rami. Degenerative changes of the lumbar spine. CT/CTA Chst, Abd, Pel W and/or WO IMPRESSION: 1. Markedly tortuous thoracic aorta without aneurysm or dissection. 2. Atherosclerotic changes of the abdominal aorta and iliac arteries without aneurysm or dissection. 3. Emphysematous changes lungs with no focal mass or infiltrate. 4. Splenomegaly. 5. Degenerative changes thoracolumbar spine with multiple compression deformities. 6. Healed fractures left pelvis. Electronically Signed: Aaron Pryor DO at 23:18 EST ,
[2022-04-14] MEDS: Ceftriaxone 1 GM/50 ML BAG IV (22:16)
[2022-04-14] MEDS: 0.9% Normal Saline 1,000 ML 999 ML IV (22:16)
--- NOTE | 2022-04-14 22:39 | ED.VIS.FALL ---
HPI HPI - Fall History of Present Illness Chief Complaint: Fall Narrative Narrative: 81-year-old female presenting with her family has concerns for her increasing falls. Patient self is a poor informant. She is very hard of hearing as well. Patient's family states she likely has a little bit of undiagnosed dementia. They state that she seems to have had a cold at home and she has been coughing and a little short of breath. He states that she has been weaker and possibly hallucinating. They do state that she said she saw something black come out of the basement which made her fall. It is unclear what this is. Patient lives with her family and they do have a cat. They state it would not typically be around her however. Patient did hit her head today and has bruising on the right side of her forehead. The fall today was not witnessed. Its unclear if she had a syncopal episode or if she tripped and fell. Her family states has not had any chest pain. She appears to be acting at her baseline. She is not been vomiting. They do report that over time she has had a lot of difficulty eating and drinking and keeping up with hydration. They do do protein shakes at home to try to get her nourished. They do state that this is not an acute issue but it has been worsening over the last several days. [facility] Medical History Hypertension Hypothyroidism Home Medications acetaminophen 325 mg tablet (Tylenol) 650 mg PO Q6H PRN PRN Pain Score 1-10/Temp > 100.7 F #0 tabs 08/29/20 [Rx Last Taken Unknown] amlodipine 10 mg tablet 10 mg PO DAILY 30 days #30 tabs 08/29/20 [Rx Last Taken Unknown] levothyroxine 25 mcg tablet 25 mcg PO DAILY@0600 30 days 08/29/20 [Rx Last Taken Unknown] lisinopril 10 mg tablet 10 mg PO DAILY 30 days #30 tabs 08/29/20 [Rx Last Taken Unknown] polysaccharide iron complex 150 mg iron capsule (Ferrex) 150 mg PO DAILYCM 30 days #30 caps 08/29/20 [Rx Last Taken Unknown] Allergy/AdvReac Type Severity Reaction Status Date / Time No Known Allergies Allergy Verified 04/14/22 18:37 Surgical History Total knee replacement status Social History household members: none housing: apartment Smoking Status: Never smoker alcohol intake: never ROS ROS ED Constitutional Constitutional ED: Denies chills or fever(s) Eyes Eyes: Denies change in vision or diplopia ENT ENT ED: Reports rhinorrhea; Denies sore throat Cardiovascular Cardiovascular: Denies chest pain or palpitations Respiratory/Chest Respiratory/Chest: Reports cough and dyspnea Gastrointestinal Gastrointestinal: Denies abdominal pain, nausea or vomiting Genitourinary Genitourinary ED: Denies dysuria or hematuria Musculoskeletal Musculoskeletal: Denies arthralgias Integumentary Reports abscess and other Details: Bruising noted to right forehead Neurologic Neurologic: Reports weakness; Denies headache(s) Psychiatric Psychiatric: Denies anxiety or depression EXAM Physical Exam Const Vital Signs: 04/14/22 18:37 04/14/22 18:51 04/14/22 23:18 Temperature 97.5 F L Temperature Source Temporal Pulse Rate 111 H 89 Respiratory Rate 18 20 H Respiratory Effort Short of Breath Blood Pressure 126/82 H 135/92 H Blood Pressure Mean 96 106 Pulse Ox 93 100 Oxygen Delivery Method Room Air Room Air Room Air 04/14/22 23:05 Temperature Temperature Source Pulse Rate 100 Respiratory Rate 20 H Respiratory Effort Blood Pressure Blood Pressure Mean Pulse Ox Oxygen Delivery Method Positive well nourished General Appearance ED: NAD HEENT Reports normocephalic HEENT Narrative: Bruising noted to the right side of forehead. No skull deformities. No lacerations. There is a superficial abrasion over this area. Eyes PERRL and EOMs intact bilaterally Neck full ROM and no lymphadenopathy Chest Wall inspection of chest normal and palpation of chest normal Resp normal respiratory effort, no retractions and clear to auscultation bilaterally Auscultation: Negative for rales, rhonchi or wheezes Cardio regular rhythm Rate: tachycardic GI non-tender Neuro CN's II-XII intact bilaterally, moves all extremities, no focal motor deficits and no sensory deficits noted [place] Coma Scale: document GCS findings Spontaneous Obeys Commands Oriented 15 Sensorium / Orientation: alert Psych mental status grossly normal MDM MDM MDM Narrative Medical decision making narrative: Patient presenting with falls which have been increasing. Today she had an unwitnessed fall and hit her head. Is unclear the etiology as the patient is a poor informant and was not witnessed. Unclear if this was a syncopal episode. I did obtain an EKG which on my interpretation shows a normal sinus rhythm with a ventricular rate of 95 bpm with no evidence of ischemia. OR interval 170 ms, cures duration 80 ms. QTc 505 ms. CBC was obtained to assess patient's hemoglobin CBC does show a normal white blood cell count 9.9. Hemoglobin is actually little high at 15.3. Platelets are normal at 270. Patient CMP does show that she has a little bit of prerenal azotemia but her creatinine is normal. Patient was given a liter of IV fluids. Patient does have decreased p.o. intake and her potassium is a little bit low at 3.2 I will replete this orally. Urinalysis does show positive nitrites, 500 leukocyte esterase, 0-5 white blood cells with rare bacteria. I will send this for culture and she will be given additional Rocephin concern for UTI. This could explain the patient's confusion and falls. This is possible we also had a syncopal event and her high-sensitivity troponin came back at 198. I will obtain a delta troponin. Again the patient does not report any chest pain. CT brain and cervical spine do not show any acute pathology. Chest x-ray interpreted by myself do not show evidence of heart failure or infiltrate. Normal mediastinum and no cardiomegaly. Radiologist interprets this and agrees but also states that the aortic arch appears to more prominent than previous. he is recommended a CT. Patient was taken over CTA and all results were discussed with her family. CTA did not show anything acute. I was called to the room because the patient started wheezing. She does not appear to be in distress but is wheezing. I did give her breathing treatments and Solu-Medrol. She feels that this helped. Patient was discussed with the hospitalist for admission. Impression: 1. Weakness 2. Falls 3. Closed head injury 4. Dehydration 5. Hypokalemia 6. UTI 7. Acute bronchitis 8. Elevated troponin Lab Data Attestation: I reviewed the patient's lab results. Labs: Laboratory Results - last 24 hr 04/14/22 04/14/22 04/14/22 20:10 20:15 20:15 WBC 9.9 RBC 5.06 Hgb 15.3 H Hct 44.9 MCV 88.7 MCH 30.2 MCHC 34.1 RDW Std Deviation 42.6 RDW Coeff of Caleb 13.1 Plt Count 270 MPV 10.3 Immature Gran % (Auto) 0.300 Neut % (Auto) 72.2 H Lymph % (Auto) 11.4 L Conway % (Auto) 11.3 H Eos % (Auto) 4.4 Baso % (Auto) 0.4 Absolute Neuts (auto) 7.2 Absolute Lymphs (auto) 1.13 Nucleated RBC % 0 Sodium 136 Potassium 3.2 L Chloride 104 Carbon Dioxide 23.0 Anion Gap 9 BUN 32 H Creatinine 0.77 Estim Creat Clear Calc 27.47 Est GFR (MDRD) Af Amer 92 Est GFR (MDRD) Non-Af 76 BUN/Creatinine Ratio 41.6 H Glucose 111 H Calcium 9.6 Total Bilirubin 2.00 H AST 72 H ALT 22 Alkaline Phosphatase 95 Troponin I High Sens 198 H* Total Protein 7.5 Albumin 3.6 Globulin 3.9 Albumin/Globulin Ratio 0.9 Urine Color Yellow Urine Clarity Sl. Cloudy Urine pH 7.0 Ur Specific [place]cano 1.015 Urine Protein 500 H Urine Glucose (UA) 50 H Urine Ketones 50 H Urine Occult Blood 150 H Urine Nitrite Positive H Urine Bilirubin Negative Urine Urobilinogen 1 H Ur Leukocyte Esterase 500 H Urine RBC 0-5 SEEN Urine WBC 0-5 SEEN Ur Squamous Epith Cells 0-5 SEEN Urine Bacteria RARE Hyaline Casts 10-25 SEEN Urine Mucus 1+ Radiography Diagnostic Testing: Clinical Impression(s) from Imaging Studies Brain CT 04/14/22 19:46 IMPRESSION: 1. Chronic involutional changes without evidence of acute intracranial or calvarial abnormality. 2. Pansinusitis. Electronically Signed: Aaron Pryor DO at 20:50 EST Reading Location ID and State: [address] [place] [address] Tel [phone], Service support , Cervical Spine CT 04/14/22 19:46 IMPRESSION: Degenerative changes cervical spine without acute fracture or subluxation. Note: MRI is more sensitive than CT in detecting cord injury, ligamentous injury and epidural hematoma. If there is continued clinical concern for any of these entities, MRI should be considered. Electronically Signed: Aaron Pryor DO at 20:53 EST Reading Location ID and State: [facility] / [place] Tel [phone], Service support , Chest X-Ray 04/14/22 20:25 IMPRESSION: Prominence of the aortic arch compared to earlier study. Correlation with CT recommended. Electronically Signed: Aaron Pryor DO at 20:36 EST Reading Location ID and State: [address] [place] [address] Tel [phone], Service support , Chest/Abdomen/Pelvis CTA 04/14/22 21:58 IMPRESSION: 1. Markedly tortuous thoracic aorta without aneurysm or dissection. 2. Atherosclerotic changes of the abdominal aorta and iliac arteries without aneurysm or dissection. 3. Emphysematous changes lungs with no focal mass or infiltrate. 4. Splenomegaly. 5. Degenerative changes thoracolumbar spine with multiple compression deformities. 6. Healed fractures left pelvis. Electronically Signed: Aaron Pryor DO at 23:18 EST Reading Location ID and State: [address] [place] [address] Tel [phone], Service support , Discharge Plan Triage Chief Complaint: Fall Other Complaint: Head Injury Weakness ED Provider: Raad Villarreal Dx/Rx/DC Orders Prescriptions: No Action acetaminophen [Tylenol] 325 mg Tablet 650 mg PO Q6H PRN PRN (Reason: Pain Score 1-10/Temp > 100.7 F) Qty: 0 0RF polysaccharide iron complex [Ferrex 150] 150 mg iron Capsule 150 mg PO DAILYCM 30 Days Qty: 30 0RF levothyroxine 25 mcg Tablet 25 mcg PO DAILY@0600 30 Days 0RF amlodipine 10 mg Tablet 10 mg PO DAILY 30 Days Qty: 30 0RF lisinopril 10 mg Tablet 10 mg PO DAILY 30 Days Qty: 30 0RF Primary Care Provider: Karie Yarbrough NP Referrals: Karie Yarbrough NP, CORPORATE ADMINISTRATOR-C [Primary Care Provider] -
[2022-04-14] MEDS: Potassium Chloride Oral Tablet 20 MEQ PO (23:01)
[2022-04-14] MEDS: Ipratropium/Albuterol Sulfate 3 ML AMPUL.NEB INHALATION (23:02)
[2022-04-14] MEDS: Albuterol 2.5 MG/3 ML VIAL.NEB. INHALATION (23:03)
[2022-04-14 23:05] VITALS: PULSE 100; RESP 20
[2022-04-14] MEDS: MethylPREDNISolone 125 MG/2 ML Vial IV (23:12)
[2022-04-14 23:18] VITALS: BP 135/92; PULSE 89; RESP 20; O2SAT 100
--- NOTE | 2022-04-14 23:20 | HP.PCM.HOS_ITS ---
HPI - General General Date of Admission: 04/14/22 Date of Service: 04/14/22 Chief Complaint: mechanical falls HPI Narrative DANIELE WYATT, is a 81 F with a PMH as outlined who presents via the ED on 04/14/2022 with a complaint of mechanical falls. She had been getting weaker at home and had been falling at home. She had a fall on the day of presentation, and hit her head. There was concern about hallucinations as she said something came out of the basement and made her fall; she does have a cat but it is not clear if the cat was what came out of the basement and made her fall. She had associated shortness of breath, and also said she had had some cold symptoms. She denied any fever, chills, cough, chest pain, palpitations, dizziness, nausea, vomiting or diarrhea. REview of systems was otherwise negative. Vitals were BP of 135/92, IL of 89, RR of 20 and oxygen sats of 100% on room air. CBC was unremarkable, and BMP showed potassium of 3.2; urinalysis showed positive nitrites and elevated leucocyte esterase, as well as 0-[address] of the of the brain showed no acute intracranial pathology and showed pansinusitis. CT of the cervical spine showed degenerative changes of the spinal cord without acute fracture or subluxation. CT chest showed prominent arch of the aorta and CTA abdomen and pelvis showed markedly tortuous thoracic aorta without aneurysm or dissection and emphysematous changes of the lungs with no focal mass or infiltrate as well as splenomegaly and degenerative changes of the thoracolumbar spine with multiple compression deformities and healed fractures of the left pelvis. Initial troponin was 198 and EKG showed no acute ST changes. She has been admitted and managed for debility due to mechanical falls and elevated troponins. [facility] Medical History Hypertension Hypothyroidism Home Medications acetaminophen 325 mg tablet (Tylenol) 650 mg PO Q6H PRN PRN Pain Score 1-10/Temp > 100.7 F #0 tabs 08/29/20 [Rx Last Taken Unknown] amlodipine 10 mg tablet 10 mg PO DAILY 30 days #30 tabs 08/29/20 [Rx Last Taken Unknown] levothyroxine 25 mcg tablet 25 mcg PO DAILY@0600 30 days 08/29/20 [Rx Last Taken Unknown] lisinopril 10 mg tablet 10 mg PO DAILY 30 days #30 tabs 08/29/20 [Rx Last Taken Unknown] polysaccharide iron complex 150 mg iron capsule (Ferrex) 150 mg PO DAILYCM 30 days #30 caps 08/29/20 [Rx Last Taken Unknown] Allergy/AdvReac Type Severity Reaction Status Date / Time No Known Allergies Allergy Verified 04/14/22 18:37 Surgical History Total knee replacement status Social History household members: none housing: apartment Smoking Status: Never smoker alcohol intake: never ROS Review of Systems ROS Unobtainable: Denies due to encephalopathy Constitutional Constitutional: Denies anorexia, chills, fatigue, fever(s) or weakness ENT HEENT: Denies headache(s) Cardiovascular Cardiovascular: Denies chest pain, dyspnea on exertion, edema, lightheadedness, orthopnea, palpitations, rapid heart rate or syncope Respiratory/Chest Respiratory/Chest: Reports dyspnea, shortness of breath at rest, shortness of breath with exertion and wheezing; Denies cough or productive cough Gastrointestinal Gastrointestinal: Denies abdominal pain, constipation, diarrhea, dyspepsia, nausea or vomiting Genitourinary Genitourinary: Denies burning urination or dysuria Musculoskeletal Musculoskeletal: Denies arthralgias Neurologic Neurologic: Denies confusion, dizziness, focal weakness, seizures or syncope Psychiatric Psychiatric: Denies anxiety Hematologic/Lymphatic Hematologic/Lymphatic: Denies anemia Vital Signs Vital Signs Vital Signs: 04/14/22 18:37 04/14/22 18:51 04/14/22 23:18 Temperature 97.5 F L Temperature Source Temporal Pulse Rate 111 H 89 Respiratory Rate 18 20 H Respiratory Effort Short of Breath Blood Pressure 126/82 H 135/92 H Blood Pressure Mean 96 106 Pulse Ox 93 100 Oxygen Delivery Method Room Air Room Air Room Air Weight Weight: 90 lb Body Mass Index (BMI) 17.6 Physical Exam Const alert, oriented x3 and no apparent distress Constitutional Narrative: very frail HEENT normocephalic, head/scalp atraumatic and hearing grossly normal bilaterally HEENT Narrative: dry oral mucosal membranes Eyes PERRL and EOMs intact bilaterally Neck no lymphadenopathy and supple Resp normal respiratory effort, no retractions, no use of accessory muscles and clear to auscultation bilaterally Cardio regular rate, regular rhythm, S1 normal heart sound, S2 normal heart sound and no murmurs GI normal to inspection, nondistended, normoactive bowel sounds, soft to palpation, non-tender and non-distended Extremity normal to inspection, full ROM and no clubbing, cyanosis or edema Skin Skin Narrative: has an erythematous bruise over the right side of her forehead, from the mechanical fall Neuro oriented x3, CN's II-XII intact bilaterally, moves all extremities and no focal motor deficits Sensorium / Orientation: awake and alert Motor Exam: strength 5/5 throughout Psych affect normal Results Lab / Micro Data Result Diagrams: 04/15/22 02:10 04/15/22 02:10 Labs: Laboratory Results - last 24 hr 04/14/22 20:10: Urine Color Yellow, Urine Clarity Sl. Cloudy, Urine pH 7.0, Ur Specific [place] 1.015, Urine Protein 500 H, Urine Glucose (UA) 50 H, Urine Ketones 50 H, Urine Occult Blood 150 H, Urine Nitrite Positive H, Urine Bilirubin Negative, Urine Urobilinogen 1 H, Ur Leukocyte Esterase 500 H, Urine RBC 0-5 SEEN, Urine WBC 0-5 SEEN, Ur Squamous Epith Cells 0-5 SEEN, Urine Bacteria RARE, Hyaline Casts 10-25 SEEN, Urine Mucus 1+ 04/14/22 20:15: WBC 9.9, RBC 5.06, Hgb 15.3 H, Hct 44.9, MCV 88.7, MCH 30.2, MCHC 34.1, RDW Std Deviation 42.6, RDW Coeff of Caleb 13.1, Plt Count 270, MPV 10.3, Immature Gran % (Auto) 0.300, Neut % (Auto) 72.2 H, Lymph % (Auto) 11.4 L, [place] % (Auto) 11.3 H, Eos % (Auto) 4.4, Baso % (Auto) 0.4, Absolute Neuts (auto) 7.2, Absolute Lymphs (auto) 1.13, Nucleated RBC % 0 04/14/22 20:15: Sodium 136, Potassium 3.2 L, Chloride 104, Carbon Dioxide 23.0, Anion Gap 9, BUN 32 H, Creatinine 0.77, Estim Creat Clear Calc 27.47, Est GFR (MDRD) Af Amer 92, Est GFR (MDRD) Non-Af 76, BUN/Creatinine Ratio 41.6 H, Glucose 111 H, Calcium 9.6, Total Bilirubin 2.00 H, AST 72 H, ALT 22, Alkaline Phosphatase 95, Troponin I High Sens 198 H*, Total Protein 7.5, Albumin 3.6, Globulin 3.9, Albumin/Globulin Ratio 0.9 Micro: Microbiology 04/14/22 20:16 Mucosa - Nasopharyngeal Influenza Types A,B Direct FA ([facility]) - Final Radiology Impression Brain CT 04/14/22 19:46 IMPRESSION: 1. Chronic involutional changes without evidence of acute intracranial or calvarial abnormality. 2. Pansinusitis. Electronically Signed: Aaron Pryor DO at 20:50 EST Reading Location ID and State: [address] [place] [address] Tel [phone], Service support , Cervical Spine CT 04/14/22 19:46 IMPRESSION: Degenerative changes cervical spine without acute fracture or subluxation. Note: MRI is more sensitive than CT in detecting cord injury, ligamentous injury and epidural hematoma. If there is continued clinical concern for any of these entities, MRI should be considered. Electronically Signed: Aaron Pryor DO at 20:53 EST Reading Location ID and State: [address] [place] [address] Tel [phone], Service support , Chest X-Ray 04/14/22 20:25 IMPRESSION: Prominence of the aortic arch compared to earlier study. Correlation with CT recommended. Electronically Signed: Aaron Pryor DO at 20:36 EST Reading Location ID and State: [place] / [place] Tel [phone], Service support , Chest/Abdomen/Pelvis CTA 04/14/22 21:58 IMPRESSION: 1. Markedly tortuous thoracic aorta without aneurysm or dissection. 2. Atherosclerotic changes of the abdominal aorta and iliac arteries without aneurysm or dissection. 3. Emphysematous changes lungs with no focal mass or infiltrate. 4. Splenomegaly. 5. Degenerative changes thoracolumbar spine with multiple compression deformities. 6. Healed fractures left pelvis. Electronically Signed: Aaron Pryor DO at 23:18 EST Reading Location ID and State: [address] [place] [address] Tel [phone], Service support , Assessment & Plan Assessment/Plan (1) Fall: QUALIFIERS: Encounter type: initial encounter Qualified Code(s): W19.XXXA - Unspecified fall, initial encounter (2) Elevated troponin: PLAN: Plan #Debility due to mechanical fall * admit to PCU o/a of elevated troponin * has been feeling weaker at home and this has been worsening * urinalysis showed elevated leucocyte esterase but no wbc or bacteria * hydrate gently with iVF * she has also been getting more confused at home, and there is a question of underlying dementia setting in * PT/OT consulted * CT of the brain showed no acute intracranial pathology * fall precautions * #Elevated troponin * Initial troponin is 158. EKG showed no acute ST changes. She denies any chest pain but does admit to some shortness of breath. * We will cycle troponins. * 2D echo ordered. Hold off on any heparin drip for now in light of patient's mechanical fall and risk of brain bleed. * give aspirin * check lipid panel * * #Hypokalemia: K is 2.9. Will replace aggressively and trend. #?UTI * urinalysis showed evidence of elevated leucocyte esterase but no wbc or bacteria * was given IV ceftriaxone in the ED * she did complain of frequency * will continue IV ceftriaxone and wait for urine cultures. * #Hypertension; on amlodipine and lisinopril #Hypothyroidism: on synthroid DVT prophylaxis; SCDs Code status: full code * Patient counseled extensively about different types of CODE STATUS including full code, DNR CCA and DNR CCA. Patient elects to be full code. * Total [id number] time 17 minutes. Charges/Coding Visit Charges Inpatient E&M: 28418 Init Hosp L2 Procedures Hospitalists Procedures: 01881 Advncd Care Plan 30 Min
[2022-04-14 23:25] VITALS: BP 135/92; PULSE 89; RESP 20; TEMP 36.6; O2SAT 100
[2022-04-14 23:32] LABS: Troponin-I HS 158 pg/mL (3.0-54.0)
[2022-04-14] MEDS: Aspirin 325 MG Tablet PO (23:44)
[2022-04-15] VITALS (13 sets, daily range): BP systolic 125–179; BP diastolic 87–105; PULSE 81–107; RESP 16–25; TEMP 36.1–37; O2SAT 93–99; BMI 14.7
[2022-04-15] MEDS: 0.9% Normal Saline 1,000 ML 125 ML IV (00:23)
[2022-04-15 00:42] LABS: Cholesterol 151 mg/dL (200); High Density Lipoprotein 57 mg/dL; Triglycerides 62 mg/dL; Very Low Density Lipoprotein 12 mg/dL (5-40)
[2022-04-15 02:20] LABS: Absolute Lymphocyte Count 0.31 X10^3/uL (0.83-4.51); Absolute Neutrophil Count 5.4 X10^3/uL (2.0-7.7); Basophil# 0.02 X10^3/uL; Basophil% 0.3 % (0-1); Hematocrit 37.1 % (37-47); Hemoglobin 12.2 g/dL (12.0-15.0); Lymphocyte # 0.31 X10^3/ul (0.83-4.51); Lymphocyte % 5.2 % (19-41); Mean Corp Hgb Conc 32.9 g/dL (32-36); Mean Corpuscular Hgb 29.3 pg (27.0-32.0); Mean Platelet Vol. 10.6 fl (6.2-12.0); Monocyte# 0.18 X10^3/uL; NRBC Flagged by Analyzer 0 % (0-5); Neutrophil # 5.38 X10^3/uL (2.7-7.7); Neutrophil % 91.2 % (47-70); POSITIVE DIFFERENTIAL YES; Platelet Count 214 K/mm3 (150-450); RBC Distribution Width CV 13.1 % (11.6-14.6); RBC Distribution Width SD 42.9 fl (35.1-43.9); Red Blood Count 4.17 M/mm3 (4.2-5.4); White Blood Count 5.9 K/mm3 (4.4-11.0)
[2022-04-15 02:32] LABS: Differential Indicated SCAN CRITERIA MET
[2022-04-15 02:41] LABS: Troponin-I HS 128 pg/mL (3.0-54.0)
[2022-04-15 02:47] LABS: Anion Gap 10 (5-15); BUN 28 mg/dL (7-18); BUN/Creat Ratio 57.1 RATIO (10-20); Calcium,Total 8.6 mg/dL (8.5-10.1); Chloride 109 mmol/L (98-107); Creatinine, Serum 0.49 mg/dL (0.55-1.02); EST Glomerular Filtration Rate 128 mL/min (>60); Est Glom Filt Rate - Afr Amer 155 mL/min (>60); Estimated Creatinine Clearance 24.56 ml/min; Glucose 147 mg/dL (74-106); Potassium 2.9 mmol/L (3.5-5.1); Sodium Level 139 mmol/L (136-145)
[2022-04-15] MEDS: Potassium Chloride 10mEq/100mL 10 MEQ/100 ML IV.SOLN. 100 MEQ IV BOLUS ×4 (04:37→08:35)
--- NOTE | 2022-04-15 05:55 | ECHOD_ITS ---
Version 2 Reason For Study: SHORTNESS OF BREATH Procedure This was a 2D Doppler, Color Flow transthoracic echocardiogram. The study was technically difficult. Exam performed portable in ICU/CCU. Left Ventricle Normal LV size. Sigmoid septum. Left ventricular systolic function is normal. The estimated ejection fraction is 70 %. Diastolic function is indeterminate. No regional wall motion abnormalities noted. Right Ventricle Normal RV size. Normal systolic function. Atria The left atrium is mildly enlarged. Normal right atrium. Positive agitated saline contrast study for a right to left interatrial shunt compatible with a small PFO versus ASD. Mitral Valve There is no mitral annular calcification. Mild focal mitral valve calcification of the anterior leaflet. Chordal systolic anterior motion of the mitral valve. Mild (1+) mitral valve insufficiency. Tricuspid Valve Normal tricuspid valve. Mild eccentric tricuspid valve insufficiency. Right ventricular systolic pressure estimated to be 35 mmHg. Aortic Valve Trisinus/trileaflet aortic valve. Mild diffuse aortic valve thickening. Trivial aortic valve insufficiency. Pulmonic Valve The pulmonic valve is not well visualized. Great Vessels Normal sized aortic root. Calcified aortic root. Pericardium/Pleural No pericardial effusion. Medication Performed a rapid injection of agitated mix of 9 cc saline and 1cc air to assess for atrial septal defect. MMode/2D Measurements & Calculations LVIDd: 4.2 cm IVSd: 0.79 cm Ao root diam: 3.5 cm LVIDs: 1.7 cm LVPWd: 0.80 cm RVDd: 3.7 cm FS: 58.4 % LAV(MOD-bp): 32.3 ml LVAd ap4: 17.2 cm2 LVAd ap2: 14.5 cm2 LAV(MOD-bp) Indexed: 25.5 ml/m2 LVLd ap4: 6.5 cm LVLd ap2: 6.3 cm LAV(MOD-sp2): 22.3 ml EDV(MOD-sp4): 35.5 ml EDV(MOD-sp2): 27.7 ml LAV(MOD-sp4): 44.7 ml EDV(sp4-el): 38.4 ml EDV(sp2-el): 28.4 ml LVAs ap4: 7.3 cm2 LVAs ap2: 7.6 cm2 LVLs ap4: 5.2 cm LVLs ap2: 5.3 cm ESV(MOD-sp4): 9.7 ml ESV(MOD-sp2): 9.6 ml ESV(sp4-el): 8.7 ml ESV(sp2-el): 9.4 ml EF(MOD-sp4): 72.6 % EF(MOD-sp2): 65.4 % EF(sp4-el): 77.3 % SV(MOD-sp4): 25.8 ml SV(MOD-sp2): 18.1 ml SV(sp4-el): 29.7 ml LA A4 area: 18.5 cm2 LA dimension(2D): 3.8 cm Doppler Measurements & Calculations MV E max talat: 54.4 cm/sec Lat Peak E' Talat: 7.3 cm/sec Med Peak E' Talat: 2.9 cm/sec MV A max talat: 109.2 cm/sec E/E' lat: 7.4 E/E' med: 18.6 MV E/A: 0.50 Ao V2 max: 159.6 cm/sec LV V1 max: 135.2 cm/sec PA V2 max: 102.5 cm/sec Ao max P.2 mmHg LV V1 max P.3 mmHg TR max talat: 222.5 cm/sec TR max P.9 mmHg ECHO/Echo Complete Interpretation Summary The study was technically difficult. Left ventricular systolic function is normal. The estimated ejection fraction is 70 %. Sigmoid septum. The left atrium is mildly enlarged. Mild focal mitral valve calcification of the anterior leaflet. Chordal systolic anterior motion of the mitral valve. Mild (1+) mitral valve insufficiency. Mild eccentric tricuspid valve insufficiency. Mild diffuse aortic valve thickening. Trivial aortic valve insufficiency. Calcified aortic root. Right ventricular systolic pressure estimated to be 35 mmHg. Diastolic function is indeterminate. Positive agitated saline contrast study for a right to left interatrial shunt c ompatible with a small PFO versus ASD. Ordering Physician: Elke Wilkerson Referring Physician: Karie Yarbrough Performed By: Margarita Garber RDCS
[2022-04-15] MEDS: Levothyroxine 25 MCG TABLET PO (06:05)
[2022-04-15] MEDS: Iron Polysaccharide Complex 150 MG CAPSULE PO (07:33)
--- NOTE | 2022-04-15 07:45 | PCM.PN.HOSP ---
Subjective Subjective Follow-up after fall. Objective Data Objective Data Vital Signs: Vital Signs Temp Pulse Resp BP Pulse Ox O2 Del Method O2 Flow Rate 98.2 F 88 19 H 147/94 H 98 Room Air 2 04/15/22 06:18 04/15/22 06:18 04/15/22 06:18 04/15/22 06:18 04/15/22 06:18 04/15/22 06:18 04/15/22 04:00 Oxygen Flow Rate (L/min) 2 Oxygen Delivery Method Room Air Weight: 80 lb 7.5 oz Body Mass Index (BMI) 14.7 Intake & Output: Intake and Output for Last 24 Hours 04/13/22 04/14/22 04/15/22 23:59 23:59 23:59 Intake Total 50 50 1694.58 / 1694.58 Balance 50 / 50 1694.58 / 1694.58 Lab / Micro Data Result Diagrams: 04/15/22 02:10 04/15/22 02:10 Labs: Laboratory Results - last 24 hr 04/14/22 20:10: Urine Color Yellow, Urine Clarity Sl. Cloudy, Urine pH 7.0, Ur Specific [place] 1.015, Urine Protein 500 H, Urine Glucose (UA) 50 H, Urine Ketones 50 H, Urine Occult Blood 150 H, Urine Nitrite Positive H, Urine Bilirubin Negative, Urine Urobilinogen 1 H, Ur Leukocyte Esterase 500 H, Urine RBC 0-5 SEEN, Urine WBC 0-5 SEEN, Ur Squamous Epith Cells 0-5 SEEN, Urine Bacteria RARE, Hyaline Casts 10-25 SEEN, Urine Mucus 1+ 04/14/22 20:15: WBC 9.9, RBC 5.06, Hgb 15.3 H, Hct 44.9, MCV 88.7, MCH 30.2, MCHC 34.1, RDW Std Deviation 42.6, RDW Coeff of Caleb 13.1, Plt Count 270, MPV 10.3, Immature Gran % (Auto) 0.300, Neut % (Auto) 72.2 H, Lymph % (Auto) 11.4 L, [place] % (Auto) 11.3 H, Eos % (Auto) 4.4, Baso % (Auto) 0.4, Absolute Neuts (auto) 7.2, Absolute Lymphs (auto) 1.13, Nucleated RBC % 0 04/14/22 20:15: Sodium 136, Potassium 3.2 L, Chloride 104, Carbon Dioxide 23.0, Anion Gap 9, BUN 32 H, Creatinine 0.77, Estim Creat Clear Calc 27.47, Est GFR (MDRD) Af Amer 92, Est GFR (MDRD) Non-Af 76, BUN/Creatinine Ratio 41.6 H, Glucose 111 H, Calcium 9.6, Total Bilirubin 2.00 H, AST 72 H, ALT 22, Alkaline Phosphatase 95, Troponin I High Sens 198 H*, Total Protein 7.5, Albumin 3.6, Globulin 3.9, Albumin/Globulin Ratio 0.9 04/14/22 20:15: Triglycerides 62, Cholesterol 151, LDL Cholesterol 82, VLDL Cholesterol 12, HDL Cholesterol 57 04/14/22 22:50: Troponin I High Sens 158 H* 04/15/22 02:10: WBC 5.9, RBC 4.17 L, Hgb 12.2, Hct 37.1, MCV 89.0, MCH 29.3, MCHC 32.9, RDW Std Deviation 42.9, RDW Coeff of Caleb 13.1, Plt Count 214, MPV 10.6, Immature Gran % (Auto) 0.300, Neut % (Auto) 91.2 H, Lymph % (Auto) 5.2 L, [place] % (Auto) 3.0, Eos % (Auto) 0.0, Baso % (Auto) 0.3, Absolute Neuts (auto) 5.4, Absolute Lymphs (auto) 0.31 L, Nucleated RBC % 0 04/15/22 02:10: Sodium 139, Potassium 2.9 L, Chloride 109 H, Carbon Dioxide 20.0 L, Anion Gap 10, BUN 28 H, Creatinine 0.49 L, Estim Creat Clear Calc 24.56, Est GFR (MDRD) Af Amer 155, Est GFR (MDRD) Non-Af 128, BUN/Creatinine Ratio 57.1 H, Glucose 147 H, Calcium 8.6 04/15/22 02:10: Troponin I High Sens 128 H* Micro: Microbiology 04/14/22 20:16 Mucosa - Nasopharyngeal Influenza Types A,B Direct FA ([facility]) - Final Radiography Diagnostic Testing: Radiology Impression Brain CT 04/14/22 19:46 IMPRESSION: 1. Chronic involutional changes without evidence of acute intracranial or calvarial abnormality. 2. Pansinusitis. Electronically Signed: Aaron Pryor DO at 20:50 EST Reading Location ID and State: [address] [place] [address] Tel [phone], Service support , Cervical Spine CT 04/14/22 19:46 IMPRESSION: Degenerative changes cervical spine without acute fracture or subluxation. Note: MRI is more sensitive than CT in detecting cord injury, ligamentous injury and epidural hematoma. If there is continued clinical concern for any of these entities, MRI should be considered. Chest X-Ray 04/14/22 20:25 IMPRESSION: Prominence of the aortic arch compared to earlier study. Correlation with CT recommended. Electronically Signed: Aaron Pryor at 20:36 EST Reading Location ID and State: [address] [place] [address] Tel [phone], Service support , Chest/Abdomen/Pelvis CTA 04/14/22 21:58 IMPRESSION: 1. Markedly tortuous thoracic aorta without aneurysm or dissection. 2. Atherosclerotic changes of the abdominal aorta and iliac arteries without aneurysm or dissection. 3. Emphysematous changes lungs with no focal mass or infiltrate. 4. Splenomegaly. 5. Degenerative changes thoracolumbar spine with multiple compression deformities. 6. Healed fractures left pelvis. Electronically Signed: Aaron Pryor DO at 23:18 EST Reading Location ID and State: [address] [place] [address] Tel [phone], Service support , Physical Exam Narrative Patient complain of mild cough and shortness of breath on exertion but sometimes at rest. She has been also not having good oral intake for last few days. She did not complain of dizziness but states he just felt because of weakness. General: Alert, Oriented x3, Cooperative HEENT: Atraumatic, PERRLA, EOMI, Normocephalic Oral: No Gingival or Mucosal Lesions/ Ulcerations Neck: Supple, No JVD, Negative Carotid Bruits Chest wall/lungs: Kyphotic spine. Air entry diminished in bilateral lung bases. No crepitation/rhonchi Cardiovascular: Regular rate, Regular Rhythm, Normal S1, Normal S2, No murmurs Abdomen: Bowel Sounds Present, Soft, Non Tender, Non-Distended : Denies dysuria . No renal angle tenderness. No suprapubic tenderness. Extremities: No edema, Capillary Refill Less than 3 Seconds Skin: No rashes, No breakdown Musculoskeletal: Arthritis of knees and hip joints. ROM restricted. Muscle strength 4+/5 at knees and hip joints. No Tenderness to Palpation of Joints or Extremities Neurological: Cranial nerves II-XII grossly intact, DTR 2+/4 and Symmetrical, Neuro grossly intact Psych/Mental Status: Flat affect. Mild cognitive deficit. GI soft to palpation Assessment & Plan Assessment/Plan (1) Fall: QUALIFIERS: Encounter type: initial encounter Qualified Code(s): W19.XXXA - Unspecified fall, initial encounter (2) Elevated troponin: PLAN: Plan This 81-year-old female who was admitted after mechanical fall with history of frequent fall at home. We also concern of hallucination at the time of event. Mild associated shortness of breath. #Debility due to mechanical fall admit to PCU because of of elevated troponin has been feeling weaker at home and this has been worsening urinalysis showed elevated leucocyte esterase but no wbc or bacteria hydrate gently with iVF she has also been getting more confused at home, and there is a question of underlying dementia setting in PT/OT consulted CT of the brain showed no acute intracranial pathology fall precautions #Elevated troponin Initial troponin is 198, 158 and then 128. Troponins downward trend. EKG showed no acute ST changes. She denies any chest pain but does admit to some shortness of breath. I do not think patient has NM either type I or type II because she does not have chest pain. Troponin leak from fall. 2D echo ordered. Hold off on any heparin drip for now in light of patient's mechanical fall and risk of brain bleed. give aspirin LDL 82, total cholesterol 151. Triglycerides 62 #Hypokalemia: K is 2.9. IV KCl ordered. Serum magnesium and phosphorus level pending. #?UTI urinalysis showed evidence of elevated leucocyte esterase but no wbc or bacteria was given IV ceftriaxone in the ED she did complain of frequency but denies burning micturition. continue IV ceftriaxone and wait for urine cultures. #Hypertension; on amlodipine and lisinopril #Hypothyroidism: on synthroid DVT prophylaxis; SCDs Code status: full code Patient counseled extensively about different types of CODE STATUS including full code, DNR CCA and DNR CCA. Patient elects to be full code. Laboratory Results - last 24 hr 04/14/22 20:10: Urine Color Yellow, Urine Clarity Sl. Cloudy, Urine pH 7.0, Ur Specific [place] 1.015, Urine Protein 500 H, Urine Glucose (UA) 50 H, Urine Ketones 50 H, Urine Occult Blood 150 H, Urine Nitrite Positive H, Urine Bilirubin Negative, Urine Urobilinogen 1 H, Ur Leukocyte Esterase 500 H, Urine RBC 0-5 SEEN, Urine WBC 0-5 SEEN, Ur Squamous Epith Cells 0-5 SEEN, Urine Bacteria RARE, Hyaline Casts 10-25 SEEN, Urine Mucus 1+ 04/14/22 20:15: WBC 9.9, RBC 5.06, Hgb 15.3 H, Hct 44.9, MCV 88.7, MCH 30.2, MCHC 34.1, RDW Std Deviation 42.6, RDW Coeff of Caleb 13.1, Plt Count 270, MPV 10.3, Immature Gran % (Auto) 0.300, Neut % (Auto) 72.2 H, Lymph % (Auto) 11.4 L, [place] % (Auto) 11.3 H, Eos % (Auto) 4.4, Baso % (Auto) 0.4, Absolute Neuts (auto) 7.2, Absolute Lymphs (auto) 1.13, Nucleated RBC % 0 04/14/22 20:15: Sodium 136, Potassium 3.2 L, Chloride 104, Carbon Dioxide 23.0, Anion Gap 9, BUN 32 H, Creatinine 0.77, Estim Creat Clear Calc 27.47, Est GFR (MDRD) Af Amer 92, Est GFR (MDRD) Non-Af 76, BUN/Creatinine Ratio 41.6 H, Glucose 111 H, Calcium 9.6, Total Bilirubin 2.00 H, AST 72 H, ALT 22, Alkaline Phosphatase 95, Troponin I High Sens 198 H*, Total Protein 7.5, Albumin 3.6, Globulin 3.9, Albumin/Globulin Ratio 0.9 04/14/22 20:15: Triglycerides 62, Cholesterol 151, LDL Cholesterol 82, VLDL Cholesterol 12, HDL Cholesterol 57 04/14/22 22:50: Troponin I High Sens 158 H* 04/15/22 02:10: WBC 5.9, RBC 4.17 L, Hgb 12.2, Hct 37.1, MCV 89.0, MCH 29.3, MCHC 32.9, RDW Std Deviation 42.9, RDW Coeff of [place]aleb 13.1, Plt Count 214, MPV 10.6, Immature Gran % (Auto) 0.300, Neut % (Auto) 91.2 H, Lymph % (Auto) 5.2 L, [place] % (Auto) 3.0, Eos % (Auto) 0.0, Baso % (Auto) 0.3, Absolute Neuts (auto) 5.4, Absolute Lymphs (auto) 0.31 L, Nucleated RBC % 0 04/15/22 02:10: Sodium 139, Potassium 2.9 L, Chloride 109 H, Carbon Dioxide 20.0 L, Anion Gap 10, BUN 28 H, Creatinine 0.49 L, Estim Creat Clear Calc 24.56, Est GFR (MDRD) Af Amer 155, Est GFR (MDRD) Non-Af 128, BUN/Creatinine Ratio 57.1 H, Glucose 147 H, Calcium 8.6 04/15/22 02:10: Troponin I High Sens 128 H* Charges/Coding Visit Charges Inpatient E&M: 59011 Subs Hosp L2
[2022-04-15 08:24] LABS: Phosphorus 2.4 mg/dL (2.5-4.9)
[2022-04-15] MEDS: Lactated Ringers 1,000 ML 75 ML IV ×2 (08:35→20:40)
[2022-04-15] MEDS: amLODIPine 10 MG Tablet PO (08:35)
[2022-04-15] MEDS: Ensure Plus High Protein 120 ML LIQUID PO ×4 (08:35→20:40)
[2022-04-15] MEDS: Lisinopril 10 MG Tablet PO ×2 (08:35→20:41)
--- NOTE | 2022-04-15 09:30 | CON.PCM.CA_ITS ---
Assessment & Plan Assessment/Plan (1) Elevated troponin: PLAN: The patient was found to have elevated troponin I levels. They have subse quently decreased. The ECG demonstrated no acute ECG changes. The patient does not report any symptoms of an ongoing acute coronary syndrome. At the moment is unclear whether the patient's elevated troponin I levels truly represents an acute coronary syndrome/type I event versus being secondary such as a type II event to her elevated blood pressure. It is unclear whether or not her mechanical fall has played a role in changes in her cardiac enzymes. At the moment she will continue to be monitored. She has been asked to have an echocardiogram to evaluate her left ventricular wall motion and systolic function. She can continue medical therapy. Could include the addition of aspirin such as 81 mg p.o. daily unless otherwise contraindicated, nitrates as needed, beta- blockers based upon heart rate and blood pressure, and potentially lipid- lowering therapy in the form of a statin. Based upon her age, her fragile state, her debility/following issues, and concerns of dementia and hallucinations, she does not appear to be an ideal candidate for invasive evaluation at this time. (2) PAD (peripheral artery disease): PLAN: The patient has been found based upon her radiologic studies to have evidence of underlying PAD involving her aorta being tortuous and ath erosclerotic changes with her aortoiliac system. At the moment consideration would be given to medical management as described above to minimize cardiovascular/peripheral vascular risks. (3) Hypertension: QUALIFIERS: Hypertension type: essential hypertension Qualified Code(s): I10 - Essential (primary) hypertension PLAN: The patient's blood pressure has been elevated. Again this may be an etiology for her abnormal cardiac enzymes. At the moment she will need to continue medical management with adjustment of her antihypertensive regimen as needed. This could include adjustment of her ALMITA inhibitor therapy as she is already on maximal dose dihydropyridine/amlodipine therapy (4) Hypothyroidism: PLAN: The patient will continue evaluation care per internal medicine. (5) Fall: QUALIFIERS: Encounter type: initial encounter Qualified Code(s): W19.XXXA - Unspecified fall, initial encounter PLAN: The patient has had more than 1 mechanical fall. This has appeared to lead to her right forehead ecchymoses. She will continue evaluation care per internal medicine. This has to be taken into consideration with respect to her overall cardio vascular evaluation as noted above (6) Debility: PLAN: The patient does appear to be very frail and fragile and debilitated. Again this has to be taken into consideration with cardiovascular evaluation and care. Based upon this she does not appear to be an ideal candidate for invasive evaluation or care at this time. Addt'l Comments There is also concern that the patient has an element of dementia and hallucinations. This could make it challenging with respect to having the patient undergo various procedures including any invasive procedure. At the present time she will continue conservative medical management and noninvasive valuation as noted. The above has been discussed and reviewed with the patient and Dr. Knox. Comment: Time spent in the patient's overall evaluation, examination, review of medical records, documentation, and discussion with the patient and the medical staff: 45 minutes HPI Consult Data Date of Consult: 04/15/22 HPI Narrative HPI Narrative: DANIELE WYATT, is a 81 year old frail-appearing white female who presents for evaluation of abnormal cardiac enzymes in the setting of a mechanical fall superimposed upon a history of underlying hypertension and hypotension as well as potential dementia and episodes of hallucinations. The patient states that she was in the bathroom and had difficulty standing up from the commode and sub sequently fell. She stated she waited for her family members to come and assist her. According to the H&P the patient has stated that she thought something had come out of the basement made her fall. She does not appear to recall any episodes of ongoing chest discomfort. At the present time she does not recall any episodes of feeling short of breath or dyspneic. There has been no report of orthopnea or PND or peripheral pitting edema. She does not believe she lost consciousness with her fall. She does states she has fallen in the past despite using a walker at home. She was brought to the hospital for further evaluation. She was noted to have an area of ecchymoses on her right forehead area. She underwent various radiologic studies included a cervical spine CT, chest/abdomen/pelvis CTA, a brain CT, and a chest x-ray. The results of the studies are noted below. She also underwent cardiac enzymes which were elevated and then subsequently has declined. She had an ECG performed which demonstrated sinus rhythm with left axis deviation with low voltage QRS in the limb leads and in the inferior NE pattern of indeterminate age could not be excluded. He was placed in the hospital for additional evaluation and care. Since being in the hospital she states she has had no other concerning symptoms. [facility] Medical History Hypertension Hypothyroidism Home Medications acetaminophen 325 mg tablet (Tylenol) 650 mg PO Q6H PRN PRN Pain Score 1-10/Temp > 100.7 F #0 tabs 08/29/20 [Rx Last Taken Unknown] amlodipine 10 mg tablet 10 mg PO DAILY 30 days #30 tabs 08/29/20 [Rx Last Taken Unknown] levothyroxine 25 mcg tablet 25 mcg PO DAILY@0600 30 days 08/29/20 [Rx Last Taken Unknown] lisinopril 10 mg tablet 10 mg PO DAILY 30 days #30 tabs 08/29/20 [Rx Last Taken Unknown] polysaccharide iron complex 150 mg iron capsule (Ferrex) 150 mg PO DAILYCM 30 days #30 caps 08/29/20 [Rx Last Taken Unknown] Allergy/AdvReac Type Severity Reaction Status Date / Time No Known Allergies Allergy Verified 04/14/22 18:37 Surgical History Total knee replacement status Social History household members: none housing: apartment Smoking Status: Never smoker alcohol intake: never ROS Constitutional Constitutional: Reports as per HPI Eyes Eyes: Reports as per HPI ENT HEENT: Reports as per HPI Cardiovascular Cardiovascular: Reports as per HPI Respiratory/Chest Respiratory/Chest: Reports as per HPI Gastrointestinal Gastrointestinal: Reports as per HPI Genitourinary Genitourinary: Reports as per HPI Musculoskeletal Musculoskeletal: Reports as per HPI Integumentary Integumentary: Reports as per HPI Neurologic Neurologic: Reports as per HPI Psychiatric Psychiatric: Reports visual hallucinations Physical Exam Const alert, oriented x3 and no apparent distress Orientation / Consciousness: awake HEENT normocephalic HEENT Narrative: Hearing impaired Right forehead area: Positive ecchymoses Eyes PERRL, EOMs intact bilaterally, conjunctivae normal and no scleral icterus Neck full ROM, supple and no JVD Carotids: normal carotid upstroke Resp normal respiratory effort and clear to auscultation bilaterally Cardio regular rate, regular rhythm, S1 normal heart sound and S2 normal heart sound GI normal to inspection, nondistended, normoactive bowel sounds Extremity no pedal edema Skin Skin Narrative: Right forehead: Positive ecchymosis General Skin Exam: ecchymosis Psych affect normal Risk Stratification Risk Stratification Applicable: Yes Age >/= 65: Yes >/= 3 CAD Risk Factors (HTN, HLD, DM, family hx of CAD, or current smoker): No Aspirin Use in the Past 7 Days: No Severe Angina (>/= episodes in 24 hours): No EKG ST Changes >/= 0.5mm: No Positive Cardiac Marker: Yes DELISA Risk Stratification Score: 2 DELISA % Risk: 8% Risk Procedure Criteria Type of Procedure Procedure Type: Elective Elective Risks - COVID COVID Risk Discussion: The surgeon/proceduralist and patient have discussed in detail the risk of exposure to and/or potential harm posed by the COVID-19 virus with having a surgery/procedure at this time versus the risk of delaying the surgery/procedure. It is not possible to know either the risk of delaying the surgery or procedure or chance of getting an infection with perfect accuracy, but a joint decision was made between the patient and the surgeon/proceduralist to proceed at this time with the scheduled surgery/procedure as indicated on the consent form. Objective Data Vital Signs: Vital Signs Temp Pulse Resp BP Pulse Ox O2 Del Method O2 Flow Rate 97.2 F L 88 24 H 161/97 H 99 Room Air 2 04/15/22 07:00 04/15/22 08:27 04/15/22 07:00 04/15/22 08:27 04/15/22 07:12 04/15/22 09:09 04/15/22 07:12 Oxygen Flow Rate (L/min) 2 Oxygen Delivery Method Room Air Weight: 80 lb 7.5 oz Body Mass Index (BMI) 14.7 Intake & Output: Intake and Output for Last 24 Hours 04/13/22 04/14/22 04/15/22 23:59 23:59 23:59 Intake Total 50 / 50 1794.58 / 1794.58 Balance 50 / 50 1794.58 / 1794.58 Lab / Micro Data Result Diagrams: 04/15/22 02:10 04/15/22 02:10 Labs: Laboratory Results - last 24 hr 04/14/22 20:10: Urine Color Yellow, Urine Clarity Sl. Cloudy, Urine pH 7.0, Ur Specific Borden 1.015, Urine Protein 500 H, Urine Glucose (UA) 50 H, Urine Ketones 50 H, Urine Occult Blood 150 H, Urine Nitrite Positive H, Urine Bilirubin Negative, Urine Urobilinogen 1 H, Ur Leukocyte Esterase 500 H, Urine RBC 0-5 SEEN, Urine WBC 0-5 SEEN, Ur Squamous Epith Cells 0-5 SEEN, Urine Bacteria RARE, Hyaline Casts 10-25 SEEN, Urine Mucus 1+ 04/14/22 20:15: WBC 9.9, RBC 5.06, Hgb 15.3 H, Hct 44.9, MCV 88.7, MCH 30.2, MCHC 34.1, RDW Std Deviation 42.6, RDW Coeff of Caleb 13.1, Plt Count 270, MPV 10.3, Immature Gran % (Auto) 0.300, Neut % (Auto) 72.2 H, Lymph % (Auto) 11.4 L, Roseau % (Auto) 11.3 H, Eos % (Auto) 4.4, Baso % (Auto) 0.4, Absolute Neuts (auto) 7.2, Absolute Lymphs (auto) 1.13, Nucleated RBC % 0 04/14/22 20:15: Sodium 136, Potassium 3.2 L, Chloride 104, Carbon Dioxide 23.0, Anion Gap 9, BUN 32 H, Creatinine 0.77, Estim Creat Clear Calc 27.47, Est GFR (MDRD) Af Amer 92, Est GFR (MDRD) Non-Af 76, BUN/Creatinine Ratio 41.6 H, Glucose 111 H, Calcium 9.6, Total Bilirubin 2.00 H, AST 72 H, ALT 22, Alkaline Phosphatase 95, Troponin I High Sens 198 H*, Total Protein 7.5, Albumin 3.6, Globulin 3.9, Albumin/Globulin Ratio 0.9 04/14/22 20:15: Triglycerides 62, Cholesterol 151, LDL Cholesterol 82, VLDL Cholesterol 12, HDL Cholesterol 57 04/14/22 22:50: Troponin I High Sens 158 H* 04/15/22 02:10: WBC 5.9, RBC 4.17 L, Hgb 12.2, Hct 37.1, MCV 89.0, MCH 29.3, MCHC 32.9, RDW Std Deviation 42.9, RDW Coeff of Caleb 13.1, Plt Count 214, MPV 10.6, Immature Gran % (Auto) 0.300, Neut % (Auto) 91.2 H, Lymph % (Auto) 5.2 L, Roseau % (Auto) 3.0, Eos % (Auto) 0.0, Baso % (Auto) 0.3, Absolute Neuts (auto) 5.4, Absolute Lymphs (auto) 0.31 L, Nucleated RBC % 0 04/15/22 02:10: Sodium 139, Potassium 2.9 L, Chloride 109 H, Carbon Dioxide 20.0 L, Anion Gap 10, BUN 28 H, Creatinine 0.49 L, Estim Creat Clear Calc 24.56, Est GFR (MDRD) Af Amer 155, Est GFR (MDRD) Non-Af 128, BUN/Creatinine Ratio 57.1 H, Glucose 147 H, Calcium 8.6 04/15/22 02:10: Troponin I High Sens 128 H* 04/15/22 02:10: Phosphorus 2.4 L, Magnesium 2.0 Micro: Microbiology 04/14/22 20:16 Mucosa - Nasopharyngeal Influenza Types A,B Direct FA (VANESA) - Final Cardiology Labs/Tests 04/14/22 20:10: Urine Color Yellow, Urine Clarity Sl. Cloudy, Urine pH 7.0, Ur Specific Borden 1.015, Urine Protein 500 H, Urine Glucose (UA) 50 H, Urine Ketones 50 H, Urine Occult Blood 150 H, Urine Nitrite Positive H, Urine Bilirubin Negative, Urine Urobilinogen 1 H, Ur Leukocyte Esterase 500 H, Urine RBC 0-5 SEEN, Urine WBC 0-5 SEEN 04/14/22 20:15: WBC 9.9, RBC 5.06, Hgb 15.3 H, Hct 44.9, MCV 88.7, MCH 30.2, MCHC 34.1, Plt Count 270, MPV 10.3, Immature Gran % (Auto) 0.300, Neut % (Auto) 72.2 H, Lymph % (Auto) 11.4 L, Roseau % (Auto) 11.3 H, Eos % (Auto) 4.4, Baso % (Auto) 0.4, Absolute Neuts (auto) 7.2, Nucleated RBC % 0 04/14/22 20:15: Sodium 136, Potassium 3.2 L, Chloride 104, Carbon Dioxide 23.0, Anion Gap 9, BUN 32 H, Creatinine 0.77, Est GFR (MDRD) Af Amer 92, Est GFR (MDRD) Non-Af 76, BUN/Creatinine Ratio 41.6 H, Glucose 111 H, Calcium 9.6, Total Bilirubin 2.00 H 04/14/22 20:15: Triglycerides 62, Cholesterol 151, LDL Cholesterol 82, VLDL Cholesterol 12, HDL Cholesterol 57 04/15/22 02:10: WBC 5.9, RBC 4.17 L, Hgb 12.2, Hct 37.1, MCV 89.0, MCH 29.3, MCHC 32.9, Plt Count 214, MPV 10.6, Immature Gran % (Auto) 0.300, Neut % (Auto) 91.2 H, Lymph % (Auto) 5.2 L, Roseau % (Auto) 3.0, Eos % (Auto) 0.0, Baso % (Auto) 0.3, Absolute Neuts (auto) 5.4, Nucleated RBC % 0 04/15/22 02:10: Sodium 139, Potassium 2.9 L, Chloride 109 H, Carbon Dioxide 20.0 L, Anion Gap 10, BUN 28 H, Creatinine 0.49 L, Est GFR (MDRD) Af Amer 155, Est GFR (MDRD) Non-Af 128, BUN/Creatinine Ratio 57.1 H, Glucose 147 H, Calcium 8.6 04/15/22 02:10: Phosphorus 2.4 L, Magnesium 2.0 Rhythm: Sinus rhythm EKG: As noted ECHO: Pending Radiography Diagnostic Testing: Radiology Impression Brain CT 04/14/22 19:46 IMPRESSION: 1. Chronic involutional changes without evidence of acute intracranial or calvarial abnormality. 2. Pansinusitis. Electronically Signed: Aaron Pryor DO at 20:50 EST Reading Location ID and State: [address] [place] [address] Tel [phone], Service support , Cervical Spine CT 04/14/22 19:46 IMPRESSION: Degenerative changes cervical spine without acute fracture or subluxation. Note: MRI is more sensitive than CT in detecting cord injury, ligamentous injury and epidural hematoma. If there is continued clinical concern for any of these entities, MRI should be considered. Electronically Signed: Aaron Pryor DO at 20:53 EST Reading Location ID and State: [facility] / [place] Tel [phone], Service support , Chest X-Ray 04/14/22 20:25 IMPRESSION: Prominence of the aortic arch compared to earlier study. Correlation with CT recommended. Electronically Signed: Aaron Pryor DO at 20:36 EST Reading Location ID and State: [facility] / [place] Tel [phone], Service support , Chest/Abdomen/Pelvis CTA 04/14/22 21:58 IMPRESSION: 1. Markedly tortuous thoracic aorta without aneurysm or dissection. 2. Atherosclerotic changes of the abdominal aorta and iliac arteries without aneurysm or dissection. 3. Emphysematous changes lungs with no focal mass or infiltrate. 4. Splenomegaly. 5. Degenerative changes thoracolumbar spine with multiple compression deformities. 6. Healed fractures left pelvis. Electronically Signed: Aaron Pryor DO at 23:18 EST Reading Location ID and State: [address] [place] [address] Tel [phone], Service support ,
[2022-04-15] MEDS: Aspirin 81 MG TAB.CHEW PO (10:27)
[2022-04-15] MEDS: Carvedilol 3.125 MG TABLET PO ×2 (10:27→20:41)
[2022-04-15 11:47] LABS: Potassium 4.6 mmol/L (3.5-5.1)
[2022-04-15] MEDS: Ipratropium/Albuterol Sulfate 3 ML AMPUL.NEB INHALATION ×2 (11:48→20:04)
--- NOTE | 2022-04-15 14:50 | CASEMGMT ---
DAVID AGUIAR DC Planning Assessment: Face to Face with patient for initial transition planning/care coordination assessment. Pt alert, oriented x3 and agreeable to participating in the assessment. DAVID AGUIAR introduced self and role at [facility], pt voiced understanding. Care providers, pharmacy, and demographics verified. Admitting Dx: fall, elevated troponin, increased confusion, possible UTI, hypokalemia PCP: Karie Yarbrough, RIGHT OF WAY AGENT but pt indicated she is no longer able to see her. Pt unable to further explain the reason but indicated may be related to insurance. Specialists: None Preferred Pharmacy: [facility] Insurance: [facility] Prescription Benefit: Yes Living Will/HPOA: Yes, [id number] Corby LNOK: biological children son Joe Clifton (lives in [place]), daughter Karie Diamond (in [place]), and son Davy Clifton (in [place] but does not see him often). Carey Tavarez Living Arrangements: Pt lives in a two story home with a first floor set-up with her step-son Corby and his family. There is one step to enter the home. Pt states she does require assistance with ADLS which her [id number] [place] assists. Transportation: Pt's family transports DME: shower chair, raised toilet seat, grab bars, lift chair, w/c, rollator or walker (not clear from pt) HHC/SNF: Pt denies any previous providers. Plan: TBD Pt unable to state at this time what her plan would be at discharge. Although oriented, pt did not appear to be oriented to her current circumstances. Pt agreeable to this DAVID AGUIAR contacting her son to further discuss. Mariaelena Mercado RN CM
--- NOTE | 2022-04-15 16:36 | CASEMGMT ---
RN STEFANIA updated by ICU staff that son is requesting to talk to CM with concerns for patietn discharging to home. Son, Corby, states that he works during the day and not able to care for patietn at home and expressed interest in SNF. RN CM explained that patient will be evaluated by therapy and make recommendations of disposition at discharge. A list of SNF providers including quality and resource use data and consistent with the patient?s preferred geographical region, medical needs, and insurance network were provided from the [employer] Guide. Son was instructed to provided top four preferences for SNF facilities. CM will follow up with patient and family and continue to assist with discharge planning.
[2022-04-15] MEDS: guaiFENesin/D-Methorphan TAB.SR.12H 1 TABLET PO (20:41)
[2022-04-16] VITALS (9 sets, daily range): BP systolic 124–165; BP diastolic 74–106; PULSE 62–86; RESP 18–20; TEMP 36.1–36.8; O2SAT 92–96
[2022-04-16] MEDS: Ceftriaxone 1 GM/50 ML BAG IV (01:15)
[2022-04-16] MEDS: Levothyroxine 25 MCG TABLET PO (06:25)
[2022-04-16] MEDS: Ipratropium/Albuterol Sulfate 3 ML AMPUL.NEB INHALATION ×2 (07:00→19:17)
--- NOTE | 2022-04-16 08:18 | PN.HOSP_ITS ---
Subjective Subjective Follow-up for fall, elevated troponin. Objective Data Objective Data Vital Signs: Vital Signs Temp Pulse Resp BP Pulse Ox O2 Del Method O2 Flow Rate 97 F L 68 20 H 127/74 H 96 Room Air 2 04/16/22 07:00 04/16/22 07:00 04/16/22 07:00 04/16/22 07:00 04/16/22 07:00 04/16/22 07:00 04/15/22 07:12 Oxygen Flow Rate (L/min) 2 Oxygen Delivery Method Room Air Weight: 80 lb 7.5 oz Body Mass Index (BMI) 14.7 Intake & Output: Intake and Output for Last 24 Hours 04/14/22 04/15/22 04/16/22 23:59 23:59 23:59 Intake Total 50 / 50 3110.83 / 3110.83 393.75 / 393.75 Balance 50 / 50 3110.83 / 3110.83 393.75 / 393.75 Medical Nutrition Assessment Dietitian: Malnutrition Criteria Met Start: 04/15/22 10:09 Freq: Status: Active Protocol: Document 04/15/22 10:09 (Rec: 04/15/22 10:09 [id number]) Nutrition Malnutrition Evidence of Malnutrition Exists Yes Malnutrition (severe): Chronic Evidenced By Suboptimal Energy Intake ( Severe),Physical Changes ( Severe) Clinical Problem Chronic Disease or Condition Related Malnutrition Etiology chronic, severe malnutrition related to inadequate energy intake Signs/Symptoms as evidenced by estimated PO intake meeting <75% of estimated energy needs > 3 months; Severe muscle wasting and fat loss evident per physical exam in orbital, temporal, clavicle, and acromion areas; BMI 14.7 Status Active Problem Recommendation Dietitian Recommendations/Changes Will liberalize diet to regular given evidence of malnutrition; will fortify foods as able. Will adjust ONS from Ensure Compact to Ensure Plus High Protein 4x/day for additional calories/protein if consumed. Lab / Micro Data Result Diagrams: 04/15/22 02:10 04/15/22 11:30 Labs: Laboratory Results - last 24 hr 04/15/22 02:10: Phosphorus 2.4 L, Magnesium 2.0 04/15/22 11:30: Potassium 4.6 Micro: Microbiology 04/14/22 20:10 Urine, Clean Catch Urine Culture - Final Mixed Gram Positive Organisms 04/14/22 20:16 Mucosa - Nasopharyngeal Influenza Types A,B Direct FA (VANESA) - Final Radiography Diagnostic Testing: Radiology Impression Echocardiogram 04/15/22 05:55 Interpretation Summary The study was technically difficult. Left ventricular systolic function is normal. The estimated ejection fraction is 70 %. Sigmoid septum. The left atrium is mildly enlarged. Mild focal mitral valve calcification of the anterior leaflet. Chordal systolic anterior motion of the mitral valve. Mild (1+) mitral valve insufficiency. Mild eccentric tricuspid valve insufficiency. Mild diffuse aortic valve thickening. Trivial aortic valve insufficiency. Calcified aortic root. Right ventricular systolic pressure estimated to be 35 mmHg. Diastolic function is indeterminate. Positive agitated saline contrast study for a right to left interatrial shunt compatible with a small PFO versus ASD. Ordering Physician: Elke Wilkerson Referring Physician: Karie Yarbrough Performed By: Margarita Garber RDCS Physical Exam Narrative Patient still has mild cough. Shortness of breath at rest resolved. General: Alert, Oriented x3, Cooperative HEENT: Atraumatic, PERRLA, EOMI, Normocephalic Oral: No Gingival or Mucosal Lesions/ Ulcerations Neck: Supple, No JVD, Negative Carotid Bruits Chest wall/lungs: Kyphotic spine. Air entry diminished in bilateral lung bases. No crepitation/rhonchi Cardiovascular: Regular rate, Regular Rhythm, Normal S1, Normal S2, No murmurs Abdomen: Bowel Sounds Present, Soft, Non Tender, Non-Distended : Denies dysuria . No renal angle tenderness. No suprapubic tenderness. Extremities: No edema, Capillary Refill Less than 3 Seconds Skin: No rashes, No breakdown Musculoskeletal: Arthritis of knees and hip joints. ROM restricted. Muscle strength 4+/5 at knees and hip joints. No Tenderness to Palpation of Joints or Extremities Neurological: Cranial nerves II-XII grossly intact, DTR 2+/4 and Symmetrical, Neuro grossly intact Psych/Mental Status: Flat affect. Mild cognitive deficit. Assessment & Plan Assessment/Plan (1) Fall: QUALIFIERS: Encounter type: initial encounter Qualified Code(s): W19.XXXA - Unspecified fall, initial encounter (2) Elevated troponin: PLAN: Plan This 81-year-old female who was admitted after mechanical fall with history of frequent fall at home and generalized weakness. She has been also not having good oral intake for last few days. Mild associated shortness of breath. #Debility due to mechanical fall * admit to PCU because of of elevated troponin * has been feeling weaker at home and this has been worsening * urinalysis showed elevated leucocyte esterase but no wbc or bacteria * hydrate gently with iVF * she has also been getting more confused at home, and there is a question of underlying dementia setting in * PT/OT consulted * CT of the brain showed no acute intracranial pathology * fall precautions 04/16: Patient on Mucinex DM, scheduled and Tessalon for as needed for cough. Incentive spirometry and Pep. Urine culture shows mixed gram-positive organism but continue antibiotic. Pre-CERT pending. #Elevated troponin * Initial troponin is 198, 158 and then 128. Troponins downward trend. EKG showed no acute ST changes. She denies any chest pain but does admit to some shortness of breath. I do not think patient has NM either type I or type II because she does not have chest pain. Troponin leak from fall. * 2D echo ordered. Hold off on any heparin drip for now in light of patient's mechanical fall and risk of brain bleed. * give aspirin * LDL 82, total cholesterol 151. Triglycerides 62 04/16: Patient was seen by sewing machinist. 2D echo done, reported EF 70% with mild eccentric MR and TR, small PFO/ASD.Because of dementia patient is not very clear about the chronological events of her symptomatology. Because of dementia patient is not very clear about the chronological events of her symptomatology. #Hypokalemia: K is 2.9. IV KCl ordered. Repeat potassium is 4. 6. Electrolytes sodium normal. Creatinine 0.49. Bicarb 20. Most probably culture negative UTI * urinalysis showed evidence of elevated leucocyte esterase but no wbc or bacteria * was given IV ceftriaxone in the ED * she did complain of frequency but denies burning micturition. * Urine culture shows mixed gram-positive organism, contamination. We will treat with IV ceftriaxone total of 3 days. #Hypertension; on amlodipine and lisinopril #Hypothyroidism: on synthroid DVT prophylaxis; SCDs Code status: full code * Patient counseled extensively about different types of CODE STATUS including full code, DNR CCA and DNR CCA. Patient elects to be full code. Microbiology Past 72 Hours 04/14/22 20:10 Urine, Clean Catch Urine Culture - Final Mixed Gram Positive Organisms 04/14/22 20:16 Mucosa - Nasopharyngeal Influenza Types A,B Direct FA (VANESA) - Final Charges/Coding Visit Charges Inpatient E&M: 12275 Subs Hosp L2
[2022-04-16] MEDS: Carvedilol 3.125 MG TABLET PO ×2 (09:25→22:07)
[2022-04-16] MEDS: amLODIPine 10 MG Tablet PO (09:25)
[2022-04-16] MEDS: Aspirin 81 MG TAB.CHEW PO (09:25)
[2022-04-16] MEDS: Lisinopril 10 MG Tablet PO ×2 (09:26→22:07)
[2022-04-16] MEDS: guaiFENesin/D-Methorphan TAB.SR.12H 1 TABLET PO (09:26)
[2022-04-16] MEDS: Na Biphos/Potassium Phosphate PACKET 1 PACKET PO ×3 (09:26→22:07)
--- NOTE | 2022-04-16 09:38 | PN.CARD_ITS ---
Subjective Subjective The patient denies any ongoing chest discomfort or difficulty breathing. She states she has had no sensation of palpitations. There has been no sensation of near syncope nor she has had any syncopal events while at [facility]. Objective Data Vital Signs: Vital Signs Temp Pulse Resp BP Pulse Ox O2 Del Method O2 Flow Rate 97 F L 62 18 127/74 H 92 Room Air 2 04/16/22 07:00 04/16/22 07:00 04/16/22 07:00 04/16/22 07:00 04/16/22 07:00 04/16/22 07:00 04/15/22 07:12 Oxygen Flow Rate (L/min) 2 Oxygen Delivery Method Room Air Weight: 80 lb 7.5 oz Body Mass Index (BMI) 14.7 Intake & Output: Intake and Output for Last 24 Hours 04/14/22 04/15/22 04/16/22 23:59 23:59 23:59 Intake Total 50 / 50 3110.83 / 3110.83 393.75 / 393.75 Balance 50 / 50 3110.83 / 3110.83 393.75 / 393.75 Lab / Micro Data Result Diagrams: 04/15/22 02:10 04/15/22 11:30 Labs: Laboratory Results - last 24 hr 04/15/22 11:30: Potassium 4.6 Micro: Microbiology 04/14/22 20:10 Urine, Clean Catch Urine Culture - Final Mixed Gram Positive Organisms Cardiology Labs/Tests 04/15/22 11:30: Potassium 4.6 Rhythm: Sinus rhythm Radiography Diagnostic Testing: Radiology Impression Echocardiogram 04/15/22 05:55 Interpretation Summary The study was technically difficult. Left ventricular systolic function is normal. The estimated ejection fraction is 70 %. Sigmoid septum. The left atrium is mildly enlarged. Mild focal mitral valve calcification of the anterior leaflet. Chordal systolic anterior motion of the mitral valve. Mild (1+) mitral valve insufficiency. Mild eccentric tricuspid valve insufficiency. Mild diffuse aortic valve thickening. Trivial aortic valve insufficiency. Calcified aortic root. Right ventricular systolic pressure estimated to be 35 mmHg. Diastolic function is indeterminate. Positive agitated saline contrast study for a right to left interatrial shunt compatible with a small PFO versus ASD. Ordering Physician: Elke Wilkerson Referring Physician: Karie Yarbrough Performed By: Margarita Garber RDCS Physical Exam Const alert, oriented x3 and no apparent distress Orientation / Consciousness: awake HEENT normocephalic HEENT Narrative: Hearing impaired Right forehead area: Positive ecchymoses Eyes PERRL, EOMs intact bilaterally, conjunctivae normal and no scleral icterus Neck full ROM, supple and no JVD Carotids: normal carotid upstroke Resp normal respiratory effort and clear to auscultation bilaterally Cardio regular rate, regular rhythm, S1 normal heart sound and S2 normal heart sound GI normal to inspection, nondistended, normoactive bowel sounds Extremity no pedal edema Skin Skin Narrative: Right forehead: Positive ecchymosis General Skin Exam: ecchymosis Psych affect normal Assessment & Plan Assessment/Plan (1) Elevated troponin: PLAN: The patient was found to have elevated troponin I levels. They have subsequently decreased. The ECG demonstrated no acute ECG changes. The patient does not report any symptoms of an ongoing acute coronary syndrome. At the moment it appears that her mildly elevated high-sensitivity troponin I levels may be a type II event brought out by her noncardiovascular diagnosis. She can continue medical therapy. This will include aspirin, she has been placed on beta-zi therapy, continuation of her afterload reducing agents, and lipid-lowering agents as deemed appropriate. Based upon her age, her fragile state, her debility/following issues, and concerns of dementia and hallucinations, she does not appear to be an ideal candidate for invasive evaluation at this time. At the same time she states based upon the aforementioned concerns she is not interested in pursuing additional cardiovascular diagnostic studies, etc., at this time. (2) PAD (peripheral artery disease): PLAN: The patient has been found based upon her radiologic studies to have evidence of underlying PAD involving her aorta being tortuous and atherosclero tic changes with her aortoiliac system. At the moment consideration would be given to medical management as described above to minimize cardiovascular/peripheral vascular risks. (3) Hypertension: QUALIFIERS: Hypertension type: essential hypertension Qualified Code(s): I10 - Essential (primary) hypertension PLAN: The patient's blood pressure has been elevated. Again this may be an etiology for her abnormal cardiac enzymes. At the moment she will need to continue medical management with adjustment of her antihypertensive regimen as needed. This could include adjustment of her A CE inhibitor therapy (increasing her lisinopril dose to 10 mg p.o. twice daily) as she is already on maximal dose dihydropyridine/amlodipine therapy (4) Hypothyroidism: PLAN: The patient will continue evaluation care per internal medicine. (5) Fall: QUALIFIERS: Encounter type: initial encounter Qualified Code(s): W19.XXXA - Unspecified fall, initial encounter PLAN: The patient has had more than 1 mechanical fall. This has appeared to lead to her right forehead ecchymoses. She will continue evaluation care per internal medicine. This has to be taken into consideration with respect to her overall cardiovascular evaluation as noted above (6) Debility: PLAN: The patient does appear to be very frail and fragile and debilitated. Again this has to be taken into consideration with cardiovascular evaluation and care. Based upon this she does not appear to be an ideal candidate for invasive evaluation or care at this time. Addt'l Comments The patient's case was discussed and reviewed with the patient and Dr. Knox. Comment: Time spent in the patients overall evaluation, examination, review of medical records/studies, documentation, and discussion with the [facility] hospitalist team: 37 minutes. Procedure Criteria Type of Procedure Procedure Type: Elective Elective Risks - COVID COVID Risk Discussion: The surgeon/proceduralist and patient have discussed in detail the risk of exposure to and/or potential harm posed by the COVID-19 virus with having a surgery/procedure at this time versus the risk of delaying the surgery/procedure. It is not possible to know either the risk of delaying the surgery or procedure or chance of getting an infection with perfect accuracy, but a joint decision was made between the patient and the surgeon/proceduralist to proceed at this time with the scheduled surgery/procedure as indicated on the consent form.
--- NOTE | 2022-04-16 10:59 | CASEMGMT ---
Addendum entered by Renata Pate 04/16/22 14:52: Social Work Pt met with pt and pt's son in room. Pt states she is now agreeable to [facility]. SW is checking on status of nhi at this time. Plan: [facility], pending KAT[facility] Lind Original Note: Social Work SW met with pt and introduced self and role of SW. SW discussed discharge plan with pt. Pt states that she lives with her family and they are able to assist her at home and pt plans to return home with her family at time of discharge. Pt agreeable to phone call to her son/HCPOA Corbynolvia Lozada. Phone call to Corby who states pt is alone during the day when family is working. Therapy notes reviewed with son and he is concerned that pt is not safe to return home at this time and could benefit from short term SNF stay for rehab prior to returning home. Pt preferred provider is [facility]. [facility] 2. [facility]. SW advised that [facility] does not have any beds available. Referral will be sent to [facility]. SW encouraged pt son to talk to pt about safety concerns and family decision for short term SNF prior to return home. Son will be in today to discuss with pt. Referral made to [facility], pending acceptance and [facility] Lind
--- NOTE | 2022-04-16 16:14 | CASEMGMT ---
Social Work [facility] is able [facility] accept pt tomorrow. Physician updated and feels pt will be ready for d/c tomorrow. [facility] updated. Phone call to pt son Corby and notified of above and he is agreeable to discharge plan. SW to follow up tomorrow. KATY Armijo
[2022-04-16] MEDS: guaiFENesin/D-Methorphan TAB.SR.12H 2 TABLET PO (22:07)
[2022-04-17 02:00] VITALS: BP 149/78; PULSE 65; RESP 23; TEMP 36.5; O2SAT 92
[2022-04-17 04:00] VITALS: BP 128/101; PULSE 64; RESP 23; TEMP 36.4; O2SAT 93
[2022-04-17] MEDS: Na Biphos/Potassium Phosphate PACKET 1 PACKET PO (05:33)
[2022-04-17] MEDS: Levothyroxine 25 MCG TABLET PO (05:34)
--- NOTE | 2022-04-17 07:51 | PCM.PN.CARD ---
Subjective Subjective The patient is awake and alert. She denies ongoing chest discomfort, difficulty breathing, or palpitations. Objective Data Vital Signs: Vital Signs Temp Pulse Resp BP Pulse Ox O2 Del Method O2 Flow Rate 97.6 F L 64 23 H 128/101 H 93 Room Air 2 04/17/22 04:00 04/17/22 04:00 04/17/22 04:00 04/17/22 04:00 04/17/22 04:00 04/17/22 04:00 04/15/22 07:12 Oxygen Flow Rate (L/min) 2 Oxygen Delivery Method Room Air Weight: 80 lb 7.5 oz Body Mass Index (BMI) 14.7 Intake & Output: Intake and Output for Last 24 Hours 04/15/22 04/16/22 04/17/22 23:59 23:59 23:59 Intake Total 3110.83 / 3110.83 1050.00 / 1050.00 Output Total 400 / 400 800 / 800 Balance 3110.83 / 3110.83 650.00 / 650.00 -800 / -800 Lab / Micro Data Result Diagrams: 04/15/22 02:10 04/15/22 11:30 Micro: Microbiology 04/14/22 20:10 Urine, Clean Catch Urine Culture - Final Mixed Gram Positive Organisms Cardiology Labs/Tests Rhythm: Sinus rhythm Physical Exam Narrative This is an elderly thin frail and fragile appearing white female who appears to be resting comfortably at the moment no acute distress. Const alert, oriented x3 and no apparent distress Orientation / Consciousness: awake HEENT normocephalic HEENT Narrative: Hearing impaired Right forehead area: Positive ecchymoses Eyes PERRL, EOMs intact bilaterally, conjunctivae normal and no scleral icterus Neck full ROM, supple and no JVD Carotids: normal carotid upstroke Resp normal respiratory effort and clear to auscultation bilaterally Cardio regular rate, regular rhythm, S1 normal heart sound and S2 normal heart sound GI normal to inspection, nondistended, normoactive bowel sounds Extremity no pedal edema Skin Skin Narrative: Right forehead: Positive ecchymosis General Skin Exam: ecchymosis Psych affect normal Assessment & Plan Assessment/Plan (1) Elevated troponin: PLAN: The patient was found to have elevated troponin I levels. They have subsequently decreased. The ECG demonstrated no acute ECG changes. The patient does not report any symptoms of an ongoing acute coronary syndrome. At the moment it appears that her mildly elevated high-sensitivity troponin I levels may be a type II event brought out by her noncardiovascular diagnosis. She can continue medical therapy. This will include aspirin, she has been placed on beta-zi therapy with low-dose carvedilol 3.125 mg p.o. twice daily, continuation of her afterload reducing agents with lisinopril at 10 mg p.o. twice daily, and lipid-lowering agents as deemed appropriate. Based upon her age, her fragile state, her debility/following issues, and concerns of dementia and hallucinations, she does not appear to be an ideal candidate for invasive evaluation at this time. At the same time she states based upon the aforementioned concerns she is not interested in pursuing additional cardiovascular diagnostic studies, etc., at this time. (2) PAD (peripheral artery disease): PLAN: The patient has been found based upon her radiologic studies to have evidence of underlying PAD involving her aorta being tortuous and atherosclerotic changes with her aortoiliac system. At the moment consideration would be given to medical management as described above to minimize cardiovascular/peripheral vascular risks. (3) Hypertension: QUALIFIERS: Hypertension type: essential hypertension Qualified Code(s): I10 - Essential (primary) hypertension PLAN: The patient's blood pressure has been elevated. Again this may be an etiology for her abnormal cardiac enzymes. Her ALMITA inhibitor therapy has been adjusted to lisinopril 10 mg p.o. twice daily. She is continuing her other antihypertensive therapy with amlodipine at 10 mg p.o. daily. Depending upon her blood pressure trends her medications may need to be further adjusted. (4) Hypothyroidism: PLAN: The patient will continue evaluation care per internal medicine. (5) Fall: QUALIFIERS: Encounter type: initial encounter Qualified Code(s): W19.XXXA - Unspecified fall, initial encounter PLAN: The patient has had more than 1 mechanical fall. This has appeared to lead to her right forehead ecchymoses. She will continue evaluation care per internal medicine. This has to be taken into consideration with respect to her overall cardiovascular evaluation as noted above (6) Debility: PLAN: The patient does appear to be very frail and fragile and debilitated. Again this has to be taken into consideration with cardiovascular evaluation and care. Based upon this she does not appear to be an ideal candidate for invasive evaluation or care at this time. Addpreeti'l Comments Overall, from a cardiovascular standpoint, the patient does not appear to demonstrate symptoms of an ongoing acute coronary syndrome nor has she demonstrated evidence of acute cardiac dysrhythmias nor has her echocardiogram suggested diminished LV systolic function. It would be recommended that she continue risk factor modification medical therapy as described above with adjustment as needed. At the present time there are no immediate plans for additional cardiovascular diagnostic studies/intervention. She can be reassessed from a cardiovascular standpoint as needed. In the interim the patient states she is considering going to an extended care facility for period of time for additional physical therapy prior to returning home to her family. Thank you for allowing me to participate in the care of your patient. Please don't hesitate to call if any issues arise. This note was generated using a voice recognition system and there may be incorrect words, spelling or punctuation that were not noted when reviewing the office note prior to saving. Comment: Time spent in the patient's overall evaluation/care including examination, review of medical records, discussion of the patient's case, and documentation: 37 minutes.
[2022-04-17 08:00] VITALS: BP 131/83; PULSE 69; RESP 19; TEMP 36.6; O2SAT 93
--- NOTE | 2022-04-17 09:02 | TREXTCAR_ITS ---
Diet Diet Order/Speech Therapy: 04/15/22 08:08 Diet: Regular - General Dietary Modifications:: Fortified Foods Is pt able to select menu?: No Routine Orders/Code Status Suppository Type: Dulcolax 10mg Suppository Frequency: Daily PRN Code Status: Full Code Wound(s) Left forehead: Wound Type: Abrasion Therapies Weight Bearing: Weight bearing as tolerated Extremity Affected:: Bilateral Lower Physical Therapy: Eval and Treat Occupational Therapy: Eval and Treat Speech Therapy: Eval and Treat Problem/Diagnosis (1) Elevated troponin: Status: Acute Code(s): R77.8 - Other specified abnormalities of plasma proteins (2) PAD (peripheral artery disease): Status: Acute Code(s): I73.9 - Peripheral vascular disease, unspecified (3) Hypertension: Status: Chronic Code(s): I10 - Essential (primary) hypertension (4) Hypothyroidism: Status: Acute Code(s): E03.9 - Hypothyroidism, unspecified (5) Fall: Status: Acute Code(s): W19.XXXA - Unspecified fall, initial encounter (6) Debility: Status: Acute Code(s): R53.81 - Other malaise Plan This 81-year-old female who was admitted after mechanical fall with history of frequent fall at home and generalized weakness. She has been also not having good oral intake for last few days. Mild associated shortness of breath. #Debility due to mechanical fall * admit to PCU because of of elevated troponin * has been feeling weaker at home and this has been worsening * urinalysis showed elevated leucocyte esterase but no wbc or bacteria * hydrate gently with iVF * she has also been getting more confused at home, and there is a question of underlying dementia setting in * PT/OT consulted * CT of the brain showed no acute intracranial pathology * fall precautions 04/16: Patient on Mucinex DM, scheduled and Tessalon for as needed for cough. Incentive spirometry and Pep. Urine culture shows mixed gram-positive organism but continue antibiotic. Pre-CERT pending. #Elevated troponin * Initial troponin is 198, 158 and then 128. Troponins downward trend. EKG showed no acute ST changes. She denies any chest pain but does admit to some shortness of breath. I do not think patient has NH either type I or type II because she does not have chest pain. Troponin leak from fall. * 2D echo ordered. Hold off on any heparin drip for now in light of patient's mechanical fall and risk of brain bleed. * give aspirin * LDL 82, total cholesterol 151. Triglycerides 62 04/16: Patient was seen by weight training instructor. 2D echo done, reported EF 70% with mild eccentric MR and TR, small PFO/ASD.Because of dementia patient is not very clear about the chronological events of her symptomatology. Because of dementia patient is not very clear about the chronological events of her symptomatology. #Hypokalemia: K is 2.9. IV KCl ordered. Repeat potassium is 4. 6. Electrolytes sodium normal. Creatinine 0.49. Bicarb 20. Most probably culture negative UTI * urinalysis showed evidence of elevated leucocyte esterase but no wbc or bacteria * was given IV ceftriaxone in the ED * she did complain of frequency but denies burning micturition. * Urine culture shows mixed gram-positive organism, contamination. We will treat with IV ceftriaxone total of 3 days. #Hypertension; on amlodipine and lisinopril #Hypothyroidism: on synthroid DVT prophylaxis; SCDs Code status: full code * Patient counseled extensively about different types of CODE STATUS including full code, DNR CCA and DNR CCA. Patient elects to be full code. Microbiology Past 72 Hours 04/14/22 20:10 Urine, Clean Catch Urine Culture - Final Mixed Gram Positive Organisms 04/14/22 20:16 Mucosa - Nasopharyngeal Influenza Types A,B Direct FA (VANESA) - Final Allergies/Procedures Done in Hospital Allergies No Known Allergies Allergy (Verified 04/14/22 18:37) Type of Care/Length of Stay Estimated LOS: Convalescent Care Less Than 30 days Type of Care Needed: Skilled Rehab Potential: Good Prognosis: Good Additional Orders/Day of Discharge Day of Discharge: 04/17/22 Dietary and Speech Recommendations Dietitian Recommendations/Changes: Will liberalize diet to regular given evidence of malnutrition; will fortify foods as able. Will adjust ONS from Ensure Compact to Ensure Plus High Protein 4x/day for additional calories/protein if consumed. Discharge Plan Admission Admit Date/Time: 04/15/22 09:20 Primary Reason for Your Visit: Fall. Attending Provider: David Knox Primary Care Provider: Karie Yarbrough NP Consulting Providers: Michael Chavez ; Elke Wilkerson Discharge Orders/Prescriptions Prescriptions: New amlodipine 5 mg Tablet 5 mg PO DAILY Qty: 0 0RF carvedilol 3.125 mg Tablet 3.125 mg PO BID Qty: 0 0RF benzonatate 100 mg Capsule 200 mg PO TID PRN PRN (Reason: cough) Qty: 0 0RF lisinopril 10 mg Tablet 10 mg PO BID Qty: 0 0RF nitroglycerin 0.4 mg Tablet, Sublingual 0.4 mg sublingual Q5M PRN (Reason: Cardiac/Chest Pain) Qty: 0 0RF aspirin 81 mg Tablet,Chewable 81 mg PO DAILY@0800 Qty: 0 0RF albuterol sulfate 2.5 mg /3 mL (0.083 %) Solution For Nebulization 2.5 mg inhalation Q6H.RT PRN (Reason: SOB &/OR WHEEZING) Qty: 0 0RF Continued acetaminophen [Tylenol] 325 mg Tablet 650 mg PO Q6H PRN PRN (Reason: Pain Score 1-10/Temp > 100.7 F) Qty: 0 0RF polysaccharide iron complex [Ferrex 150] 150 mg iron Capsule 150 mg PO DAILYCM 30 Days Qty: 30 0RF levothyroxine 25 mcg Tablet 25 mcg PO DAILY@0600 30 Days 0RF Discontinued amlodipine 10 mg Tablet 10 mg PO DAILY 30 Days Qty: 30 0RF lisinopril 10 mg Tablet 10 mg PO DAILY 30 Days Qty: 30 0RF Referrals / Follow Up: Karie Yarbrough NP, SYSTEM SUPPORT TECHNICIAN-C [Primary Care Provider] - Michael Chavez MD [Med Staff - Active Staff] - Within 1 Month (For troponin, possible coronary artery disease) Disposition Disposition (needs filled in before D/C Order can be placed): Shelter Facility (1) Hypertension Qualifiers: Hypertension type: essential hypertension Qualified Code(s): I10 - Essential (primary) hypertension (2) Fall Qualifiers: Encounter type: initial encounter Qualified Code(s): W19.XXXA - Unspecified fall, initial encounter
--- NOTE | 2022-04-17 09:11 | DS.PCM_ITS ---
Providers Date of Admission: 04/15/22 Primary Care Physician: PIETER Barrera Consultations 04/15/22 03:47 Consult: Cardiology Routine Consulting Provider: Michael Chavez Reason for Consult: elevated troponin EMERGENT Consult: No MD Notified: Yes Date Notified: 04/15/22 Time Notified: 03:47 Method of Notification: Text Reason For Visit: MECHANICAL FALL,ELEVATED TROPONIN Diagnosis Discharge Diagnosis (1) Elevated troponin: Status: Acute Code(s): R77.8 - Other specified abnormalities of plasma proteins (2) PAD (peripheral artery disease): Status: Acute Code(s): I73.9 - Peripheral vascular disease, unspecified (3) Hypertension: Status: Chronic Code(s): I10 - Essential (primary) hypertension Qualifiers: Hypertension type: essential hypertension Qualified Code(s): I10 - Essential (primary) hypertension (4) Hypothyroidism: Status: Acute Code(s): E03.9 - Hypothyroidism, unspecified (5) Fall: Status: Acute Code(s): W19.XXXA - Unspecified fall, initial encounter Qualifiers: Encounter type: initial encounter Qualified Code(s): W19.XXXA - Unsp ecified fall, initial encounter (6) Debility: Status: Acute Code(s): R53.81 - Other malaise Plan This 81-year-old female who was admitted after mechanical fall with history of f requent fall at home and generalized weakness. She has been also not having good oral intake for last few days. Mild associated shortness of breath. #Debility due to mechanical fall * admit to PCU because of of elevated troponin * has been feeling weaker at home and this has been worsening * urinalysis showed elevated leucocyte esterase but no wbc or bacteria * hydrate gently with iVF * she has also been getting more confused at home, and there is a question of underlying dementia setting in * PT/OT consulted * CT of the brain showed no acute intracranial pathology * fall precautions 04/16: Patient on Mucinex DM, scheduled and Tessalon for as needed for cough. Incentive spirometry and Pep. Urine culture shows mixed gram-positive organism but continue antibiotic. 04/17: Patient is discharged on Mucinex DM, Tessalon. Continue incentive spirometry and Pep. #Elevated troponin * Initial troponin is 198, 158 and then 128. Troponins downward trend. EKG showed no acute ST changes. She denies any chest pain but does admit to some shortness of breath. I do not think patient has ND either type I or type II because she does not have chest pain. Troponin leak from fall. * 2D echo ordered. Hold off on any heparin drip for now in light of patient's mechanical fall and risk of brain bleed. * give aspirin * LDL 82, total cholesterol 151. Triglycerides 62 04/16: Patient was seen by upper shaper. 2D echo done, reported EF 70% with mild eccentric MR and TR, small PFO/ASD.Because of dementia patient is not very clear about the chronological events of her symptomatology. Because of dementia patient is not very clear about the chronological events of her symptomatology. 04/16: Patient is discharged on Coreg and baby aspirin. #Hypokalemia: K is 2.9. IV KCl ordered. Repeat potassium is 4.6. Electrolytes sodium normal. Creatinine 0.49. Bicarb 20. Most probably culture negative UTI * urinalysis showed evidence of elevated leucocyte esterase but no wbc or bacteria * was given IV ceftriaxone in the ED * she did complain of frequency but denies burning micturition. * Urine culture shows mixed gram-positive organism, contamination. We will treat with IV ceftriaxone total of 3 days. Patient completed 3 days of IV ceftriaxone though urine culture was contamination. Does not need any further antibiotic. #Hypertension; on amlodipine and lisinopril #Hypothyroidism: on synthroid DVT prophylaxis; SCDs Code status: full code * Patient counseled extensively about different types of CODE STATUS including full code, DNR CCA and DNR CCA. Patient elects to be full code. Microbiology Past 72 Hours 04/14/22 20:10 Urine, Clean Catch Urine Culture - Final Mixed Gram Positive Organisms 04/14/22 20:16 Mucosa - Nasopharyngeal Influenza Types A,B Direct FA (VANESA) - Final Discharge medication reconciliation done. Discharge follow-up instructions completed. Discharge process discussed with the patient and all questions were answered to patient's satisfaction. Discharged to senior care. Total time spent, exact 35 minutes on discharge meds reconciliation, examination, coordination of care with nurses and ancillary staff, review of imaging and blood test and discussion with the patient on follow-up instructions. Medications at Discharge Home Medications acetaminophen 325 mg tablet (Tylenol) 650 mg PO Q6H PRN PRN Pain Score 1-10/Temp > 100.7 F #0 tabs 08/29/20 levothyroxine 25 mcg tablet 25 mcg PO DAILY@0600 30 days 08/29/20 polysaccharide iron complex 150 mg iron capsule (Ferrex) 150 mg PO DAILYCM 30 days #30 caps 08/29/20 albuterol sulfate 2.5 mg/3 mL (0.083 %) solution for nebulization 2.5 mg (3 mL) inhalation Q6H.RT PRN SOB &/OR WHEEZING #0 mL 04/17/22 amlodipine 5 mg tablet 5 mg PO DAILY #0 tabs 04/17/22 aspirin 81 mg chewable tablet 81 mg PO DAILY@0800 #0 tabs 04/17/22 benzonatate 100 mg capsule 200 mg PO TID PRN PRN cough #0 caps 04/17/22 carvedilol 3.125 mg tablet 3.125 mg PO BID #0 tabs 04/17/22 dextromethorphan-guaifenesin 30 mg-600 mg tablet extended [id number] hr (Mucinex DM) 1 tab PO Q12H 5 days #10 tabs 04/17/22 lisinopril 10 mg tablet 10 mg PO BID #0 tabs 04/17/22 nitroglycerin 0.4 mg sublingual tablet 0.4 mg sublingual Q5M PRN Cardiac/Chest Pain #0 tabs 04/17/22 Physical Exam Narrative Patient still has mild cough. Shortness of breath at rest resolved. Cough has improved. General: Alert, Oriented x3, Cooperative HEENT: Atraumatic, PERRLA, EOMI, Normocephalic Oral: Oral mucosa moist. No Gingival or Mucosal Lesions/ Ulcerations Neck: Supple, No JVD, Negative Carotid Bruits Chest wall/lungs: Kyphotic spine. Air entry diminished in bilateral lung bases. No crepitation/rhonchi Cardiovascular: Regular rate, Regular Rhythm, Normal S1, Normal S2, No murmurs Abdomen: Bowel Sounds Present, Soft, Non Tender, Non-Distended : Denies dysuria . No renal angle tenderness. No suprapubic tenderness. Extremities: No edema, Capillary Refill Less than 3 Seconds Skin: No rashes, No breakdown Musculoskeletal: Arthritis of knees and hip joints. ROM restricted. Muscle strength 4+/5 at knees and hip joints. No Tenderness to Palpation of Joints or Extremities Neurological: Cranial nerves II-XII grossly intact, DTR 2+/4 and Symmetrical, Neuro grossly intact Psych/Mental Status: Flat affect. Mild cognitive deficit. Medical Records Data Medical Nutrition Assessment Dietitian: Malnutrition Criteria Met Start: 04/15/22 10:09 Freq: Status: Active Protocol: Document 04/15/22 10:09 (Rec: 04/15/22 10:09 [id number]) Nutrition Malnutrition Evidence of Malnutrition Exists Yes Malnutrition (severe): Chronic Evidenced By Suboptimal Energy Intake ( Severe),Physical Changes ( Severe) Clinical Problem Chronic Disease or Condition Related Malnutrition Etiology chronic, severe malnutrition related to inadequate energy intake Signs/Symptoms as evidenced by estimated PO intake meeting <75% of estimated energy needs > 3 months; Severe muscle wasting and fat loss evident per physical exam in orbital, temporal, clavicle, and acromion areas; BMI 14.7 Status Active Problem Recommendation Dietitian Recommendations/Changes Will liberalize diet to regular given evidence of malnutrition; will fortify foods as able. Will adjust ONS from Ensure Compact to Ensure Plus High Protein 4x/day for additional calories/protein if consumed. Weight / BMI Weight Weight: 80 lb 7.5 oz Body Mass Index (BMI) 14.7 ABG / Lab / Microbiology Data Result Diagrams: 04/15/22 02:10 04/15/22 11:30 Microbiology: Microbiology 04/14/22 20:10 Urine, Clean Catch Urine Culture - Final Mixed Gram Positive Organisms 04/14/22 20:16 Mucosa - Nasopharyngeal Influenza Types A,B Direct FA (VANESA) - Final Meaningful Use Info Meaningful Use Diagnoses (Choose all that apply): None applicable Discharge Plan Admission Admit Date/Time: 04/15/22 09:20 Primary Reason for Your Visit: Fall. Attending Provider: David Knox Primary Care Provider: Karie Yarbrough NP Consulting Providers: Michael Chavez ; Elke Wilkerson Discharge Orders/Prescriptions Prescriptions: New amlodipine 5 mg Tablet 5 mg PO DAILY Qty: 0 0RF carvedilol 3.125 mg Tablet 3.125 mg PO BID Qty: 0 0RF benzonatate 100 mg Capsule 200 mg PO TID PRN PRN (Reason: cough) Qty: 0 0RF lisinopril 10 mg Tablet 10 mg PO BID Qty: 0 0RF nitroglycerin 0.4 mg Tablet, Sublingual 0.4 mg sublingual Q5M PRN (Reason: Cardiac/Chest Pain) Qty: 0 0RF aspirin 81 mg Tablet,Chewable 81 mg PO DAILY@0800 Qty: 0 0RF albuterol sulfate 2.5 mg /3 mL (0.083 %) Solution For Nebulization 2.5 mg inhalation Q6H.RT PRN (Reason: SOB &/OR WHEEZING) Qty: 0 0RF Mucinex DM 30-600 mg tablet extended release 12 hr 1 tab PO Q12H 5 Days Qty: 10 0RF Continued acetaminophen [Tylenol] 325 mg Tablet 650 mg PO Q6H PRN PRN (Reason: Pain Score 1-10/Temp > 100.7 F) Qty: 0 0RF polysaccharide iron complex [Ferrex 150] 150 mg iron Capsule 150 mg PO DAILYCM 30 Days Qty: 30 0RF levothyroxine 25 mcg Tablet 25 mcg PO DAILY@0600 30 Days 0RF Discontinued amlodipine 10 mg Tablet 10 mg PO DAILY 30 Days Qty: 30 0RF lisinopril 10 mg Tablet 10 mg PO DAILY 30 Days Qty: 30 0RF Referrals / Follow Up: Michael Chavez MD [Med Staff - Active Staff] - Within 1 Month (For troponin, possible coronary artery disease) Karie Yarbrough NP, [facility]ALTH CLINICIAN[facility] [Primary Care Provider] - Disposition Disposition (needs filled in before D/C Order can be placed): [facility] Facility Charges/Coding Visit Charges Inpatient E&M: 35048 Disch Hosp >30min
[2022-04-17] MEDS: amLODIPine 5 MG Tablet PO (09:48)
[2022-04-17] MEDS: guaiFENesin/D-Methorphan TAB.SR.12H 2 TABLET PO (09:48)
[2022-04-17] MEDS: Iron Polysaccharide Complex 150 MG CAPSULE PO (09:48)
[2022-04-17] MEDS: Lisinopril 10 MG Tablet PO (09:48)
[2022-04-17 09:49] VITALS: O2SAT 92
[2022-04-17] MEDS: Aspirin 81 MG TAB.CHEW PO (09:49)
[2022-04-17] MEDS: Carvedilol 3.125 MG TABLET PO (09:53)
[2022-04-17] MEDS: Ensure Plus High Protein 120 ML LIQUID PO (09:59)
[2022-04-17] MEDS: Ceftriaxone 1 GM/50 ML BAG IV (10:00)
--- NOTE | 2022-04-17 11:36 | CASEMGMT ---
Social Work Per physician, pt is ready for discharge today. 7000 convalescent form completed in [facility] and sent along with discharge orders and covid results to [facility] via [facility]. [facility] arranged with [facility] for 1:00 pickup via wheelchair van. Phone call to pt son and updated on discharge plan and he is agreeable. [facility] and bedside nurse notified of discharge time. Disposition: [facility], skilled level of care under convalescent stay. KATY Crump
== END 2022-04-17 13:00 | disposition skilled nursing facility (03) | DRG 947 ==
LOC: ED 23:30 → ICU 23:50
PROVIDERS: Admitting Provider Student in an Organized Health Care Education/Training Program; Emergency Provider Student in an Organized Health Care Education/Training Program; PCP Nurse Practitioner Family; Visit Provider Internal Medicine
DX: R53.81 Other malaise (principal); E43 Unspecified severe protein-calorie malnutrition; Z68.1 Body mass index [BMI] 19.9 or less, adult; N39.0 Urinary tract infection, site not specified; F03.90 Unspecified dementia, unspecified severity, without behavioral disturbance, psychotic disturbance, mood disturbance, and anxiety; I73.9 Peripheral vascular disease, unspecified; E87.6 Hypokalemia; I10 Essential (primary) hypertension; E03.9 Hypothyroidism, unspecified; S00.83XA Contusion of other part of head, initial encounter; W18.30XA Fall on same level, unspecified, initial encounter; R44.1 Visual hallucinations; R77.8 Other specified abnormalities of plasma proteins; R29.6 Repeated falls; R53.1 Weakness; Z79.82 Long term (current) use of aspirin; Z79.899 Other long term (current) drug therapy
CPT/HCPCS: 70450; 71045; 71275; 72125; 74174; 80048; 80053; 80061; 81001; 83735; 84100; 84132; 84484; 85025; 87086; 87088; 87426; 87804; 93005; 93306; 94640; 94668; 97162; 97166; 97802; 99252; 99284; J7030; J7120; Q9967; A4216; G0463